=== PATIENT | female | born 1930 | race Caucasian/White ===

== ENCOUNTER 2016-10-08 08:57 | Emergency (ER) | payer MEDICARE, BC ==
--- NOTE | 2016-10-08 09:27 | ED ---
General Adult HPI - General Chief complaint: Upper Respiratory Infection Stated complaint: laryngitis Time Seen by Provider: 10/08/16 09:22 Source: patient, family, RN notes reviewed Mode of arrival: wheelchair Limitations: no limitations - History of Present Illness Initial comments: Patient is a pleasant 86-year-old female presenting to the emergency department complaining of cough. Onset of symptoms was a few days ago. Patient does have productive green sputum. Patient complains of chest congestion. No fever. Patient does have recent laryngitis with minimal sore throat that has been improving. No history of chronic lung problems. - Related Data Previous Rx's Medication Instructions Recorded Albuterol Inhaler [Ventolin Hfa 2 puff INHALATION Q4HR PRN #1 10/08/16 Inhaler] inhaler Azithromycin [Zithromax Z-pack] 250 mg PO DIRECTED #6 tab 10/08/16 Allergies Allergy/AdvReac Type Severity Reaction Status Date / Time Iodinated Contrast Media - Allergy Unknown Verified 10/08/16 09:03 Oral and Review of Systems ROS Statement: Those systems with pertinent positive or pertinent negative responses have been documented in the HPI. ROS Other: All systems not noted in ROS Statement are negative. Constitutional: Denies: fever, chills Eyes: Denies: eye pain ENT: Reports: throat pain, congestion. Denies: ear pain Respiratory: Reports: cough Cardiovascular: Denies: chest pain Endocrine: Denies: fatigue Gastrointestinal: Denies: abdominal pain Genitourinary: Denies: urgency Musculoskeletal: Denies: back pain Skin: Denies: rash Neurological: Denies: weakness Past Medical History Past Medical History: CVA/TIA, Diabetes Mellitus, GERD/Reflux, Hypertension, Renal Disease Additional Past Medical History / Comment(s): dialysis, leaky valve History of Any Multi-Drug Resistant Organisms: None Reported Past Surgical History: Coronary Bypass/CABG, Pacemaker Past Psychological History: No Psychological Hx Reported Smoking Status: Former smoker Past Alcohol Use History: None Reported Past Drug Use History: None Reported General Exam Limitations: no limitations General appearance: alert, in no apparent distress Head exam: Present: atraumatic Eye exam: Present: normal appearance, PERRL ENT exam: Present: normal oropharynx Neck exam: Present: normal inspection Respiratory exam: Present: normal lung sounds bilaterally Cardiovascular Exam: Present: regular rate, normal rhythm GI/Abdominal exam: Present: soft. Absent: tenderness Extremities exam: Present: normal inspection. Absent: pedal edema, calf tenderness Neurological exam: Present: alert Psychiatric exam: Present: normal affect, normal mood Skin exam: Present: normal color Course Vital Signs 10/08/16 10/08/16 09:00 09:30 Temperature 97.0 F L Pulse Rate 70 67 Respiratory 20 18 Rate Blood Pressure 153/62 133/60 O2 Sat by Pulse 90 L 100 Oximetry Medical Decision Making - Medical Decision Making Patient reevaluated and resting comfortably in bed. Patient and family updated on results. Patient is comfortable with discharge home with antibiotics orally. - Radiology Data Radiology results: image reviewed (Chest x-ray shows no infiltrate. Possible mild central venous congestion. Cardiomegaly.) Disposition Clinical Impression: Bronchitis Disposition: HOME SELF-CARE Condition: Stable Instructions: Acute Bronchitis (ED) Additional Instructions: Please follow-up with your doctor in the beginning of the week. Return for difficulty breathing, chest pain, leg swelling, fevers, worsening symptoms or other concerns. Prescriptions: Albuterol Inhaler [Ventolin Hfa Inhaler] 2 puff INHALATION Q4HR PRN #1 inhaler PRN Reason: Dyspnea Azithromycin [Zithromax Z-pack] 250 mg PO DIRECTED #6 tab Referrals: Juan Cheek DO [Primary Care Provider] - 1-2 days Time of Disposition: 10:03
[2016-10-08 09:31] VITALS: RESP 18
--- NOTE | 2016-10-08 09:53 | XR ---
EXAMINATION TYPE: XR chest 2V DATE OF EXAM: 10/08/2016 COMPARISON: 11/10/2010 TECHNIQUE: PA and lateral views submitted. HISTORY: Shortness of breath FINDINGS: The lungs are clear and there is no pneumothorax, pleural effusion, or focal pneumonia. Cardiac dev ice and dialysis catheter seen. Mild central interstitial prominence and cardiomegaly noted. Underlyi ng COPD suspected. Atherosclerotic change aorta and degenerative change of the spine. IMPRESSION: 1. Correlate for mild central venous congestion. 2. Cardiomegaly.
[2016-10-08 10:09] VITALS: BP 123/58; PULSE 70; TEMP 97.6
== END 2016-10-08 10:15 | disposition home or self-care (01) ==
LOC: EC 08:57 → SUPCPDRO 08:57 → EC 10:15
DX: J40 Bronchitis, not specified as acute or chronic (principal); Z87.891 Personal history of nicotine dependence; Z91.041 Radiographic dye allergy status
CPT/HCPCS: 71020; 99283

== ENCOUNTER 2016-12-03 14:03 | Inpatient (IN) | payer MEDICARE, BC ==
[~2016-12-03 14:03] MED LIST: HUMAN PROTHROMBIN COMPLX 500 UNIT/16 ML VIAL IV ONE
[2016-12-03] MEDS ORDERED: SODIUM CHLORIDE 0.9% 1,000 ML IV STA (14:30)
--- NOTE | 2016-12-03 14:31 | ED ---
General Adult HPI - General Chief complaint: Recheck/Abnormal Lab/Rx Stated complaint: Dr Sent Time Seen by Provider: 12/03/16 14:28 Source: patient, RN notes reviewed, old records reviewed Mode of arrival: wheelchair Limitations: no limitations - History of Present Illness Initial comments: This is a 86-year-old female here for evaluation. Patient's reported ER for evaluation of low hemoglobin weakness. Patient sent in by dialysis as outpatient lab tests revealed low hemoglobin. Patient denies vomiting blood, patient denies blood in stool - Related Data Allergies Allergy/AdvReac Type Severity Reaction Status Date / Time Iodinated Contrast- Oral and AdvReac Severe Compromised Verified 12/03/16 14:53 IV Dye Kidney [Iodinated Contrast Media - Function/Dialysis Oral and] Review of Systems ROS Statement: Those systems with pertinent positive or pertinent negative responses have been documented in the HPI. ROS Other: All systems not noted in ROS Statement are negative. Past Medical History Past Medical History: Atrial Fibrillation, CVA/TIA, Diabetes Mellitus, GERD/ Reflux, Hypertension, Renal Disease Additional Past Medical History / Comment(s): dialysis, leaky mitral valve, CHF History of Any Multi-Drug Resistant Organisms: None Reported Past Surgical History: Coronary Bypass/CABG, Pacemaker Past Psychological History: No Psychological Hx Reported Smoking Status: Former smoker Past Alcohol Use History: None Reported Past Drug Use History: None Reported General Exam Limitations: no limitations General appearance: alert, in no apparent distress Head exam: Present: atraumatic, normocephalic, normal inspection Eye exam: Present: normal appearance, PERRL, EOMI. Absent: scleral icterus, conjunctival injection, periorbital swelling ENT exam: Present: normal exam, mucous membranes moist Neck exam: Present: normal inspection. Absent: tenderness, meningismus, lymphadenopathy Respiratory exam: Present: normal lung sounds bilaterally. Absent: respiratory distress, wheezes, rales, rhonchi, stridor Cardiovascular Exam: Present: regular rate, normal rhythm, normal heart sounds. Absent: systolic murmur, diastolic murmur, rubs, gallop, clicks GI/Abdominal exam: Present: soft, normal bowel sounds. Absent: distended, tenderness, guarding, rebound, rigid Extremities exam: Present: normal inspection, full ROM, normal capillary refill. Absent: tenderness, pedal edema, joint swelling, calf tenderness Back exam: Present: normal inspection Neurological exam: Present: alert, oriented X3, CN II-XII intact Psychiatric exam: Present: normal affect, normal mood Skin exam: Present: warm, dry, intact, normal color. Absent: rash Course Vital Signs 12/03/16 14:19 Temperature 97.7 F Pulse Rate 72 Respiratory 16 Rate Blood Pressure 92/54 O2 Sat by Pulse 96 Oximetry - Reevaluation(s) Reevaluation #1: 12/03/16 14:57 Patient does feel weak does feel lightheaded and dizzy Reevaluation #2: 12/03/16 14:58 He did see patient and speak with transferring physician regarding possible and probable anemia EKG Findings - EKG Comments: EKG Findings:: EKG shows paced rhythm rate of 70, QRS to 12, QTC 613 Medical Decision Making - Medical Decision Making 86. ER for evaluation regarding GI bleed. Patient does have history of GI bleed, is on Alquist. Ahlquist, patient with severe anemia, patient will be transfused. Patient be admitted for monitoring of urine MX status, GI evaluation and nephrology evaluation Disposition Clinical Impression: Anemia, Coagulopathy, GI bleed Disposition: ADMITTED IP TO THIS [facility] Condition: Serious Referrals: Neo Murphy DO [Primary Care Provider] - 1-2 days
[2016-12-03 15:13] LABS: Basophils % (A) 0 %; CH 35.7; CHCM 32.8; Eosinophils # (A) 0.1 k/uL (0-0.7); Eosinophils % (A) 1 %; HCT 23.9 % (34.0-46.0); HDW 2.89; HGB 7.7 gm/dL (11.4-16.0); Luc # (Auto) 0.09; Luc % (Auto) 2; Lymphocytes # (A) 0.8 k/uL (1.0-4.8); Lymphocytes % (A) 19 %; MCH 35.4 pg (25.0-35.0); MCHC 32.2 g/dL (31.0-37.0); MCV 109.9 fL (80.0-100.0); Macrocytosis Marked; Mean Platelet Volume 8.8; Monocytes # (A) 0.2 k/uL (0-1.0); Monocytes % (A) 5 %; Neutrophils # (A) 3.2 k/uL (1.3-7.7); Neutrophils % (A) 73 %; RBC 2.17 m/uL (3.80-5.40); RDW 15.7 % (11.5-15.5); WBC 4.4 k/uL (3.8-10.6); WBC (Perox) 4.28
[2016-12-03 15:24] LABS: INR 1.2 (<1.2); Magnesium 1.7 mg/dL (1.6-2.3); Potassium 3.6 mmol/L (3.5-5.1); Prothrombin Time 11.7 sec (9.0-12.0); Total Bilirubin 0.4 mg/dL (0.2-1.3); Total Protein 5.8 g/dL (6.3-8.2)
[2016-12-03] MEDS ORDERED: HUMAN PROTHROMBIN COMPLX IV ONE (15:30)
[2016-12-03 15:39] LABS: Creatine Kinase MB 0.6 ng/mL (0.0-2.4); Troponin I 0.019 ng/mL (0.000-0.034)
[2016-12-03 16:07] VITALS: BMI 29.0
[2016-12-03] MEDS ORDERED: SENNOSIDES-DOCUSATE SODIUM 1 EACH TAB PO PRN (16:42)
[2016-12-03] MEDS ORDERED: HYDROmorphone 1 MG/ML 1 ML SYRINGE IVP PRN (16:43)
[2016-12-03] MEDS ORDERED: ALPRAZolam 0.25 MG TAB PO PRN (16:43)
[2016-12-03] MEDS ORDERED: PANTOPRAZOLE 40 MG TABLET PO SCH (16:45)
[2016-12-03] MEDS: AMIODARONE 200 MG TAB PO SCH ×2 (17:22→21:10)
[2016-12-03] MEDS: CALCIUM ACETATE 667 MG CAP PO SCH (17:22)
[2016-12-03 17:56] LABS: Glucose,Whole Blood 284 mg/dL (75-99)
[2016-12-03] MEDS: INSULIN LISPRO (humaLOG) 300 UNIT/3 ML VIAL SQ SCH ×2 (18:20→21:10)
[2016-12-03] MEDS: HYDROcodone/APAP 5-325MG 1 EACH TAB PO PRN (19:53)
[2016-12-03 20:25] LABS: Glucose,Whole Blood 218 mg/dL (75-99)
[2016-12-03] MEDS: TEMAZEPAM 15 MG CAP PO PRN (21:09)
[2016-12-03] MEDS: SACUBITRIL/VALSARTAN 24 MG-26 MG TABLET PO SCH (21:09)
[2016-12-03] MEDS: ATORVASTATIN 80 MG TAB PO SCH (21:10)
[2016-12-03] MEDS: FOLIC ACID-VIT B COMPLEX-VIT C 1 CAP PO SCH (21:10)
[2016-12-04 07:42] LABS: Glucose,Whole Blood 204 mg/dL (75-99)
[2016-12-04 07:46] LABS: Anisocytosis Slight; Basophils % (A) 1 %; CH 35.7; CHCM 33.4; Eosinophils # (A) 0.1 k/uL (0-0.7); Eosinophils % (A) 3 %; HCT 22.3 % (34.0-46.0); HDW 3.06; HGB 7.4 gm/dL (11.4-16.0); Luc # (Auto) 0.12; Luc % (Auto) 3; Lymphocytes % (A) 24 %; MCHC 33.4 g/dL (31.0-37.0); MCV 107.7 fL (80.0-100.0); Macrocytosis Marked; Mean Platelet Volume 8.3; Monocytes # (A) 0.3 k/uL (0-1.0); Monocytes % (A) 8 %; Neutrophils # (A) 2.6 k/uL (1.3-7.7); Neutrophils % (A) 62 %; RBC 2.07 m/uL (3.80-5.40); RDW 16.1 % (11.5-15.5); WBC 4.2 k/uL (3.8-10.6); WBC (Perox) 4.17
[2016-12-04] MEDS: INSULIN LISPRO (humaLOG) 300 UNIT/3 ML VIAL SQ SCH ×4 (08:01→22:16)
[2016-12-04] MEDS: INSULIN GLARGINE 100 UNIT/ML 10 ML VIAL SQ SCH (08:02)
[2016-12-04] MEDS: FUROSEMIDE 80 MG TAB PO SCH ×2 (08:02→14:41)
[2016-12-04] MEDS: AMIODARONE 200 MG TAB PO SCH ×3 (08:02→22:14)
[2016-12-04] MEDS: CALCIUM ACETATE 667 MG CAP PO SCH ×3 (08:02→18:40)
[2016-12-04] MEDS: PANTOPRAZOLE 40 MG TABLET PO SCH (08:02)
[2016-12-04] MEDS: SACUBITRIL/VALSARTAN 24 MG-26 MG TABLET PO SCH ×2 (08:03→22:14)
[2016-12-04] MEDS: ISOSORBIDE MONONITRATE ER 30 MG TAB.ER.24H PO SCH (08:03)
[2016-12-04] MEDS: METOPROLOL SUCCINATE (ER) 50 MG TAB.ER.24H PO SCH (08:03)
[2016-12-04 08:05] LABS: Calcium 8.9 mg/dL (8.4-10.2); Potassium 4.8 mmol/L (3.5-5.1)
[2016-12-04 08:22] LABS: Polychromasia Present
[2016-12-04] MEDS ORDERED: ENOXAPARIN 40 MG/0.4 ML SYRINGE SQ SCH (09:00)
[2016-12-04] MEDS ORDERED: DARBEPOETIN ALFA 40 MCG/0.4 ML SYRINGE SQ SCH (11:00)
--- NOTE | 2016-12-04 11:30 | P.NPCON ---
History of Present Illness - Reason for Consult end stage renal disease - History of Present Illness Reason for consultation: End-stage renal disease History of present illness: Patient is a 86-year-old female seen in renal consultation for end-stage renal disease. She is maintained on hemodialysis on a Monday schedule via a permacath. Patient states she's been feeling quite weak and tired for the last couple of weeks. She's also noticed some dark bowel movements intermittently. Her hemoglobin was less than 7 when checked yesterday and she was subsequently sent to the hospital for blood transmission. Her hemoglobin on admission was 7.7-7.4 this morning. She has not received any blood transfusions yet. She denies any hematemesis. She denies any bloody bowel movements. Denies chest pain. Does admit to intermittent dyspnea. Oral intake is good. She did complete her hemodialysis yesterday. Hemodynamically she stable. No other complaints at this time. Vital signs are stable. General: The patient appeared well nourished and normally developed. HEENT: Head exam is unremarkable. Neck is without jugular venous distension. LUNGS: Lungs are clear to auscultation and percussion. Breath sounds decreased. HEART: Rate and Rhythm are regular. First and second heart sounds normal. No murmurs, rubs or gallops. ABDOMEN: Abdominal exam reveals normal bowel sounds. Non-tender and non- distended. No evidence of peritonitis. EXTREMITITES: No clubbing, cyanosis, or edema. Past Medical History Past Medical History: Atrial Fibrillation, Heart Failure, CVA/TIA, Diabetes Mellitus, GERD/Reflux, Hypertension, Renal Disease Additional Past Medical History / Comment(s): dialysis, leaky mitral valve, CHF History of Any Multi-Drug Resistant Organisms: None Reported Past Surgical History: Coronary Bypass/CABG, Pacemaker Additional Past Surgical History / Comment(s): hx GI Bleed, several colonoscopies Past Anesthesia/Blood Transfusion Reactions: No Reported Reaction Type of Cardiac Device: Permanent Pacemaker Device Placement Date:: 1999 Past Psychological History: No Psychological Hx Reported Smoking Status: Former smoker Past Alcohol Use History: None Reported Past Drug Use History: None Reported - Past Family History Father Family Medical History: Coronary Artery Disease (CAD) Brother(s) Family Medical History: Coronary Artery Disease (CAD) Sister(s) Family Medical History: CVA/TIA Medications and Allergies Home Medications Medication Instructions Recorded Confirmed Type Amiodarone [Cordarone] 200 mg PO TID 12/03/16 12/03/16 History Apixaban [Eliquis] 5 mg PO BID 12/03/16 12/03/16 History Aspirin EC [Ecotrin Low Dose] 81 mg PO QAM 12/03/16 12/03/16 History Atorvastatin [Lipitor] 80 mg PO HS 12/03/16 12/03/16 History Calcium Acetate [Phoslo] 667 mg PO TID@0800,1400,1800 12/03/16 12/03/16 History Folic Acid-Vit B Complex-Vit C 1 mg PO HS 12/03/16 12/03/16 History [Nephrocaps] Furosemide [Lasix] 80 mg PO BID@0800,1400 12/03/16 12/03/16 History INSULIN LISPRO (humaLOG) [HumaLOG] See Protocol SQ BID 12/03/16 12/03/16 History Insulin Glargine [Lantus] 20 unit SQ QAM 12/03/16 12/03/16 History Isosorbide Mononitrate ER [Imdur] 30 mg PO QAM 12/03/16 12/03/16 History Metoprolol Succinate (ER) [Toprol 50 mg PO QAM 12/03/16 12/03/16 History Xl] Omeprazole 40 mg PO QAM 12/03/16 12/03/16 History Sacubitril/Valsartan [Entresto 24 1 tab PO BID 12/03/16 12/03/16 History mg-26 mg Tablet] Sennosides-Docusate Sodium 1 tab PO BID PRN 12/03/16 12/03/16 History [Senokot-S] fentaNYL 50MCG/HR PATCH [Duragesic 1 patch TRANSDERM Q72H 12/03/16 12/03/16 History 50MCG/HR] Allergies Allergy/AdvReac Type Severity Reaction Status Date / Time Iodinated Contrast- Oral and AdvReac Severe Compromised Verified 12/03/16 14:53 IV Dye Kidney [Iodinated Contrast Media - Function/Dialysis Oral and] Physical Exam Vitals: Vital Signs Temp Pulse Pulse Pulse Resp BP BP 12/04/16 07:00 97.6 F 70 16 132/59 12/03/16 22:56 98 F 69 18 122/56 12/03/16 17:27 97.7 F 70 17 130/51 12/03/16 15:17 69 18 137/72 12/03/16 14:19 97.7 F 72 16 92/54 Pulse Ox 12/04/16 07:00 94 L 12/03/16 22:56 100 12/03/16 17:27 12/03/16 15:17 95 12/03/16 14:19 96 Intake and Output 12/03/16 12/04/16 12/04/16 22:59 06:59 14:59 Intake Total 400 Balance 400 Intake: IV 400 Sodium Chloride 0.9% 1, 400 000 ml @ 50 mls/hr IV . Q20H STA Rx#:[id number] Other: # Voids 1 2 Weight 69.853 kg 69.853 kg Results - Lab Results Most recent lab results Calcium 8.9 mg/dL (8.4-10.2) 12/04/16 07:05 Magnesium 1.7 mg/dL (1.6-2.3) 12/03/16 14:57 12/04/16 07:05 12/04/16 07:05 Assessment and Plan Plan: Assessment: #1. End-stage renal disease maintained on hemodialysis on a Monday schedule via permacath. Patient does have a left upper extremity AV fistula which the patient does not want to use at she had developed cellulitis in the past. #2. Symptomatic anemia. Hemoglobin was 6.7 when checked yesterday but was 7.7 on admission. It is 7.4 this morning. #3. Chronic kidney disease mineral bone disease. #4. Recent hospitalization at [facility] with CHF exacerbation and pleural effusions. Plan: Hemodialysis on Monday. I will give her 1 dose of IV DDAVP. Check hemoglobin at 5 PM today. If further drops, will transfuse. Await GI recommendations. Maintain PhosLo with meals. Start Aranesp. Thank you for the consultation. I will continue to follow the patient with you during her hospital stay.
[2016-12-04] MEDS ORDERED: SODIUM CHLORIDE 0.9% IVPB ONE (11:45)
[2016-12-04] MEDS ORDERED: DESMOPRESSIN IVPB ONE (11:45)
[2016-12-04 12:25] LABS: Glucose,Whole Blood 211 mg/dL (75-99)
--- NOTE | 2016-12-04 14:10 | P.CONS ---
History of Present Illness - Reason for Consult Consult date: 12/04/16 - History of Present Illness Patient is a 86-year-old female with end-stage renal disease maintained on hemodialysis on a Monday, and Monday schedule via a permacath. Patient came to the ER with complaints of feeling weak and tired for the last two weeks or so. She noticed dark bowel movements intermittently. Her hemoglobin was less than 7 when checked the day before admission and she was sent to the hospital for blood transmission. Her hemoglobin on admission was 7.7, 7.4 this morning. She has not received any blood transfusions yet. She denies any hematemesis. She denies any bloody bowel movements. Denies chest pain. Does admit to intermittent dyspnea. Oral intake is good. She did complete her Monday. No other complaints at this time. Had colonoscopy on more than one occasion, last around 2 years ago. No recent EGD. Review of Systems 12 point ROS negative except as PI. Past Medical History Past Medical History: Atrial Fibrillation, Heart Failure, CVA/TIA, Diabetes Mellitus, GERD/Reflux, Hypertension, Renal Disease Additional Past Medical History / Comment(s): dialysis, leaky mitral valve, CHF History of Any Multi-Drug Resistant Organisms: None Reported Past Surgical History: Coronary Bypass/CABG, Pacemaker Additional Past Surgical History / Comment(s): hx GI Bleed, several colonoscopies Past Anesthesia/Blood Transfusion Reactions: No Reported Reaction Type of Cardiac Device: Permanent Pacemaker Device Placement Date:: 1999 Past Psychological History: No Psychological Hx Reported Smoking Status: Former smoker Past Alcohol Use History: None Reported Past Drug Use History: None Reported - Past Family History Father Family Medical History: Coronary Artery Disease (CAD) Brother(s) Family Medical History: Coronary Artery Disease (CAD) Sister(s) Family Medical History: CVA/TIA Medications and Allergies Home Medications Medication Instructions Recorded Confirmed Type Amiodarone [Cordarone] 200 mg PO TID 12/03/16 12/03/16 History Apixaban [Eliquis] 5 mg PO BID 12/03/16 12/03/16 History Aspirin EC [Ecotrin Low Dose] 81 mg PO QAM 12/03/16 12/03/16 History Atorvastatin [Lipitor] 80 mg PO HS 12/03/16 12/03/16 History Calcium Acetate [Phoslo] 667 mg PO TID@0800,1400,1800 12/03/16 12/03/16 History Folic Acid-Vit B Complex-Vit C 1 mg PO HS 12/03/16 12/03/16 History [Nephrocaps] Furosemide [Lasix] 80 mg PO BID@0800,1400 12/03/16 12/03/16 History INSULIN LISPRO (humaLOG) [HumaLOG] See Protocol SQ BID 12/03/16 12/03/16 History Insulin Glargine [Lantus] 20 unit SQ QAM 12/03/16 12/03/16 History Isosorbide Mononitrate ER [Imdur] 30 mg PO QAM 12/03/16 12/03/16 History Metoprolol Succinate (ER) [Toprol 50 mg PO QAM 12/03/16 12/03/16 History Xl] Omeprazole 40 mg PO QAM 12/03/16 12/03/16 History Sacubitril/Valsartan [Entresto 24 1 tab PO BID 12/03/16 12/03/16 History mg-26 mg Tablet] Sennosides-Docusate Sodium 1 tab PO BID PRN 12/03/16 12/03/16 History [Senokot-S] fentaNYL 50MCG/HR PATCH [Duragesic 1 patch TRANSDERM Q72H 12/03/16 12/03/16 History 50MCG/HR] Allergies Allergy/AdvReac Type Severity Reaction Status Date / Time Iodinated Contrast- Oral and AdvReac Severe Compromised Verified 12/03/16 14:53 IV Dye Kidney [Iodinated Contrast Media - Function/Dialysis Oral and] Physical Exam Vitals: Vital Signs Temp Pulse Pulse Pulse Resp BP BP 12/04/16 07:00 97.6 F 70 16 132/59 12/03/16 22:56 98 F 69 18 122/56 12/03/16 17:27 97.7 F 70 17 130/51 12/03/16 15:17 69 18 137/72 12/03/16 14:19 97.7 F 72 16 92/54 Pulse Ox 12/04/16 07:00 94 L 12/03/16 22:56 100 12/03/16 17:27 12/03/16 15:17 95 12/03/16 14:19 96 Intake and Output 12/03/16 12/04/16 12/04/16 22:59 06:59 14:59 Intake Total 400 370 Balance 400 370 Intake: IV 400 320 Sodium Chloride 0.9% 1, 400 320 000 ml @ 50 mls/hr IV . Q20H STA Rx#:[id number] Intake, IV Titration 50 Amount Desmopressin Inj 21 mcg 50 In Sodium Chloride 0.9% 50 ml @ 200 mls/hr IVPB ONCE ONE Rx#:[id number] Other: # Voids 1 2 Weight 69.853 kg 69.853 kg General appearance: The patient is alert, oriented, in no acute distress. HET: Head is normocephalic and atraumatic. Pupils are equal and reactive. Oropharynx is clear without lesions. Neck: Supple without lymphadenopathy. Trachea midline. Heart: S1 S2. Regular rate and rhythm. Lungs: No crackles or wheezes are heard. Abdomen: Soft, mild epigastric tenderness, nondistended with bowel sounds. No appreciable ascites. No peritoneal signs. No palpable organomegaly or masses. Extremities: Normal skin color and turgor. No cyanosis, rash, ulceration, clubbing, or edema. Radial and pedal pulses are 2/4 bilaterally. Neurological: No focal deficits. Strength and sensation are grossly intact. Results CBC & Chem 7: 12/04/16 07:05 12/04/16 07:05 Labs: Abnormal Lab Results - Last 24 Hours (Table) 12/03/16 12/03/16 12/03/16 Range/Units 14:57 14:57 14:57 RBC 2.17 L (3.80-5.40) m/uL Hgb 7.7 L (11.4-16.0) gm/dL Hct 23.9 L (34.0-46.0) % MCV 109.9 H (80.0-100.0) fL MCH 35.4 H (25.0-35.0) pg RDW 15.7 H (11.5-15.5) % Lymphocytes # 0.8 L (1.0-4.8) k/uL INR (<1.2) Chloride 97 L (98-107) mmol/L Carbon Dioxide 31 H (22-30) mmol/L BUN 21 H (7-17) mg/dL Creatinine 2.12 H (0.52-1.04) mg/dL Glucose 225 H (74-99) mg/dL POC Glucose (mg/dL) (75-99) mg/dL Total Creatine Kinase 21 L (30-135) U/L Total Protein 5.8 L (6.3-8.2) g/dL Stool Occult Blood (Negative) Crossmatch 12/03/16 12/03/16 12/03/16 Range/Units 14:57 14:57 14:57 RBC (3.80-5.40) m/uL Hgb (11.4-16.0) gm/dL Hct (34.0-46.0) % MCV (80.0-100.0) fL MCH (25.0-35.0) pg RDW (11.5-15.5) % Lymphocytes # (1.0-4.8) k/uL INR 1.2 H (<1.2) Chloride (98-107) mmol/L Carbon Dioxide (22-30) mmol/L BUN (7-17) mg/dL Creatinine (0.52-1.04) mg/dL Glucose (74-99) mg/dL POC Glucose (mg/dL) (75-99) mg/dL Total Creatine Kinase (30-135) U/L Total Protein (6.3-8.2) g/dL Stool Occult Blood Positive H (Negative) Crossmatch See Detail 12/03/16 12/03/16 12/04/16 Range/Units 17:47 20:21 07:05 RBC 2.07 L (3.80-5.40) m/uL Hgb 7.4 L (11.4-16.0) gm/dL Hct 22.3 L (34.0-46.0) % MCV 107.7 H (80.0-100.0) fL MCH 36.0 H (25.0-35.0) pg RDW 16.1 H (11.5-15.5) % Lymphocytes # (1.0-4.8) k/uL INR (<1.2) Chloride (98-107) mmol/L Carbon Dioxide (22-30) mmol/L BUN (7-17) mg/dL Creatinine (0.52-1.04) mg/dL Glucose (74-99) mg/dL POC Glucose (mg/dL) 284 H 218 H (75-99) mg/dL Total Creatine Kinase (30-135) U/L Total Protein (6.3-8.2) g/dL Stool Occult Blood (Negative) Crossmatch 12/04/16 12/04/16 12/04/16 Range/Units 07:05 07:26 12:18 RBC (3.80-5.40) m/uL Hgb (11.4-16.0) gm/dL Hct (34.0-46.0) % MCV (80.0-100.0) fL MCH (25.0-35.0) pg RDW (11.5-15.5) % Lymphocytes # (1.0-4.8) k/uL INR (<1.2) Chloride (98-107) mmol/L Carbon Dioxide (22-30) mmol/L BUN 35 H (7-17) mg/dL Creatinine 3.34 H (0.52-1.04) mg/dL Glucose 188 H (74-99) mg/dL POC Glucose (mg/dL) 204 H 211 H (75-99) mg/dL Total Creatine Kinase (30-135) U/L Total Protein (6.3-8.2) g/dL Stool Occult Blood (Negative) Crossmatch Assessment and Plan Plan: Anemia and dark stools likely related to UGI bleeding. Agree with your current management. I will plan EGD in AM.
--- NOTE | 2016-12-04 14:23 | PN ---
DATE OF SERVICE: 12/03/2016 CHIEF COMPLAINT: GI bleed and anemia. HISTORY OF PRESENT ILLNESS: This 86-year-old woman with the past medical history of chronic renal failure on hemodialysis, history of atrial fibrillation , CHF, history of CVA, TIA, diabetes mellitus, hypertension and GERD, being followed by primary physician in the [place] area, was receiving hemodialysis. Blood count was found to be low at 6.6 and patient sent to [facility] ER for further evaluation and treatment. Rectal exam showed black, maroon colored stool per and patient was admitted for further evaluation and treatment. Hemoglobin is 7.7 at this time. There is no history of fever or rigors. No history of headache, loss of consciousness or seizures. The patient' s last colonoscopy was about 10 years ago with some polyps, the details are not available. PAST MEDICAL HISTORY: Chronic kidney failure, atrial fibrillation, history of CVA, TIA, history of GERD, hypertension. MEDICATIONS PRIOR TO ADMISSION: Include home medications: 1. Fentanyl patch 50 mcg q72 hours. 2. Senokot S one tablet b.i.d.p.r.n. 3. Entresto one p.o. b.i.d. 4. Omeprazole 40 mg q a.m. 5. Toprol XL 50 mg q a.m. 6. Imdur 30 mg. 7. Lantus 10 units 8. Humalog to scale. 9. Lasix 80 mg p.o. b.i.d. 10. Nephrocaps 1 mg q.h.s. 11. PhosLo 667 p.o. one t.i.d. 12. Lipitor 80 mg q h.s. 13. Ecotrin 81 mg q.d. 14. Eliquis 5 mg p.o. b.i.d. 15. Cordarone 200 mg p.o. t.i.d. ALLERGIES: IODINATED CONTRAST DYES. FAMILY HISTORY: History of coronary artery disease in the family. SOCIAL HISTORY: Previous history of smoking, no history of current smoking or alcohol intake. REVIEW OF SYSTEMS: ENT: No diminished hearing or vision. CARDIOVASCULAR: As mentioned earlier. RESPIRATORY: As mentioned earlier. GI: As mentioned earlier. : No dysuria. NERVOUS SYSTEM: No numbness or weakness. IMMUNOLOGY/ALLERGY: No asthma, hayfever. MUSCULOSKELETAL: As mentioned earlier. HEMATOLOGY: No history of anemia. ENDOCRINE: No history of diabetes or hypothyroidism. CONSTITUTIONAL: As mentioned earlier. PSYCHIATRIC: As mentioned earlier. PHYSICAL EXAMINATION: Alert and oriented x3. Pulse 72, blood pressure n, respirations 16, temperature 97.7, pulse ox 96% on room air. HEENT: Conjunctivae pale. Oral mucosa moist. NECK: No jugular venous distention. No thyroid enlargement. CARDIOVASCULAR: S1/.S2. Ejection systolic murmur parasternal area. No S3, no S4. RESPIRATIONS: Diminished breath sounds at the bases. No rhonchi, no crackles. ABDOMEN: Soft. Mild discomfort in the lower abdomen. No mass palpable. LEGS: Minimal edema. NERVOUS SYSTEM: Higher function as mentioned. Moves all four limbs. No focal weakness. LYMPHATICS. No lymph node palpable in neck or axillae. SKIN: No rash. LABS: WBC 4.2, hemoglobin 7.7, MCV 109. Creatinine 2.1. ASSESSMENT: 1. Anemia, acute blood loss anemia with possible lower gastrointestinal bleeding, rule out diverticulosis. 2. 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 3. Macrocytosis. 4. Atrial fibrillation. 5. Cerebrovascular accident, transient ischemic attack. 6. Diabetes mellitus type 2. 7. Hypertension. RECOMMENDATIONS AND DISCUSSION: This 86-year-old woman presented with multiple complex medial issues. Will monitor the patient closely, continue the current medication, continue symptomatic treatment. Otherwise, gastroenterology evaluation, repeat hemoglobin, transfuse on a periodic basis, hold antiplatelets and anticoagulations. Guarded prognosis because of multiple complex medical issues. Further recommendations to follow. FAREEDD
[2016-12-04] MEDS: HYDROcodone/APAP 5-325MG 1 EACH TAB PO PRN (14:39)
[2016-12-04 17:00] LABS: Glucose,Whole Blood 217 mg/dL (75-99)
[2016-12-04 17:30] LABS: Anisocytosis Slight; CH 34.9; HCT 21.7 % (34.0-46.0); HDW 2.99; HGB 7.3 gm/dL (11.4-16.0); Hypochromasia Slight; MCH 36.9 pg (25.0-35.0); MCHC 33.5 g/dL (31.0-37.0); MCV 110.1 fL (80.0-100.0); Macrocytosis Marked; Mean Platelet Volume 8.8; RBC 1.97 m/uL (3.80-5.40); RDW 16.1 % (11.5-15.5); WBC 6.2 k/uL (3.8-10.6)
[2016-12-04 20:49] LABS: Glucose,Whole Blood 207 mg/dL (75-99)
[2016-12-04] MEDS: TEMAZEPAM 15 MG CAP PO PRN (22:14)
[2016-12-04] MEDS: ATORVASTATIN 80 MG TAB PO SCH (22:14)
[2016-12-04] MEDS: FOLIC ACID-VIT B COMPLEX-VIT C 1 CAP PO SCH (22:14)
[2016-12-05 07:33] LABS: Glucose,Whole Blood 144 mg/dL (75-99)
[2016-12-05 07:52] LABS: Calcium 8.8 mg/dL (8.4-10.2); Potassium 4.6 mmol/L (3.5-5.1)
[2016-12-05] MEDS: INSULIN LISPRO (humaLOG) 300 UNIT/3 ML VIAL SQ SCH ×4 (08:12→21:18)
[2016-12-05] MEDS: FUROSEMIDE 80 MG TAB PO SCH ×2 (08:12→18:03)
[2016-12-05] MEDS: CALCIUM ACETATE 667 MG CAP PO SCH ×3 (08:12→21:17)
[2016-12-05] MEDS: AMIODARONE 200 MG TAB PO SCH ×3 (08:12→21:17)
[2016-12-05] MEDS: PANTOPRAZOLE 40 MG TABLET PO SCH (08:12)
[2016-12-05] MEDS: INSULIN GLARGINE 100 UNIT/ML 10 ML VIAL SQ SCH (08:13)
[2016-12-05 08:38] LABS: Anisocytosis Slight; Basophils % (A) 0 %; Eosinophils # (A) 0.2 k/uL (0-0.7); Eosinophils % (A) 4 %; HCT 23.7 % (34.0-46.0); HDW 3.19; HGB 7.7 gm/dL (11.4-16.0); Hypochromasia Slight; Luc # (Auto) 0.13; Luc % (Auto) 3; Lymphocytes # (A) 0.9 k/uL (1.0-4.8); Lymphocytes % (A) 24 %; MCHC 32.6 g/dL (31.0-37.0); MCV 107.4 fL (80.0-100.0); Macrocytosis Marked; Mean Platelet Volume 7.3; Monocytes # (A) 0.3 k/uL (0-1.0); Monocytes % (A) 7 %; Neutrophils # (A) 2.4 k/uL (1.3-7.7); Neutrophils % (A) 62 %; RBC 2.21 m/uL (3.80-5.40); WBC 3.9 k/uL (3.8-10.6); WBC (Perox) 3.89
[2016-12-05] MEDS ORDERED: DESMOPRESSIN INJ 4 MCG/ML AMP IV SCH (09:00)
--- NOTE | 2016-12-05 10:33 | P.PN ---
Subjective Patient is seen in follow-up for end-stage renal disease. She is maintained on hemodialysis on a Monday schedule via a permacath. Patient presented with symptomatic anemia. She did receive 1 unit of blood transfusion and hemoglobin is 7.7 this morning. She continues to have dark stools. Scheduled to undergo EGD this afternoon. Vital signs are stable. General: The patient appeared well nourished and normally developed. HEENT: Head exam is unremarkable. Neck is without jugular venous distension. LUNGS: Lungs are clear to auscultation and percussion. Breath sounds decreased. HEART: Rate and Rhythm are regular. First and second heart sounds normal. No murmurs, rubs or gallops. ABDOMEN: Abdominal exam reveals normal bowel sounds. Non-tender and non- distended. No evidence of peritonitis. EXTREMITITES: No clubbing, cyanosis, or edema. Objective - Vital Signs Vital signs: Vital Signs Temp 98.1 F 12/05/16 07:00 Pulse 70 12/05/16 07:00 Resp 18 12/05/16 07:00 BP 138/66 12/05/16 07:00 Pulse Ox 97 12/05/16 07:00 Intake & Output 12/04/16 12/05/16 12/05/16 18:59 06:59 18:59 Intake Total 370 550 Balance 370 550 Intake: IV 320 Sodium Chloride 0.9% 1, 320 000 ml @ 50 mls/hr IV . Q20H STA Rx#:[id number] Intake, IV Titration 50 Amount Desmopressin Inj 21 mcg 50 In Sodium Chloride 0.9% 50 ml @ 200 mls/hr IVPB ONCE ONE Rx#:[id number] Oral 240 Blood Product 310 Rc Pheresis 2 As3 Unit 310 [id number] Other: # Voids 1 - Labs CBC & Chem 7: 12/05/16 07:07 12/05/16 07:07 Labs: Abnormal Lab Results - Last 24 Hours (Table) 12/03/16 12/04/16 12/04/16 Range/Units 14:57 12:18 16:55 RBC 1.97 L (3.80-5.40) m/uL Hgb 7.3 L (11.4-16.0) gm/dL Hct 21.7 L (34.0-46.0) % MCV 110.1 H (80.0-100.0) fL MCH 36.9 H (25.0-35.0) pg RDW 16.1 H (11.5-15.5) % Plt Count (150-450) k/uL BUN (7-17) mg/dL Creatinine (0.52-1.04) mg/dL Glucose (74-99) mg/dL POC Glucose (mg/dL) 211 H (75-99) mg/dL Crossmatch See Detail 12/04/16 12/04/16 12/05/16 Range/Units 16:58 20:47 07:07 RBC 2.21 L (3.80-5.40) m/uL Hgb 7.7 L (11.4-16.0) gm/dL Hct 23.7 L (34.0-46.0) % MCV 107.4 H (80.0-100.0) fL MCH (25.0-35.0) pg RDW 19.0 H (11.5-15.5) % Plt Count 145 L (150-450) k/uL BUN (7-17) mg/dL Creatinine (0.52-1.04) mg/dL Glucose (74-99) mg/dL POC Glucose (mg/dL) 217 H 207 H (75-99) mg/dL Crossmatch 12/05/16 12/05/16 Range/Units 07:07 07:29 RBC (3.80-5.40) m/uL Hgb (11.4-16.0) gm/dL Hct (34.0-46.0) % MCV (80.0-100.0) fL MCH (25.0-35.0) pg RDW (11.5-15.5) % Plt Count (150-450) k/uL BUN 53 H (7-17) mg/dL Creatinine 4.61 H (0.52-1.04) mg/dL Glucose 125 H (74-99) mg/dL POC Glucose (mg/dL) 144 H (75-99) mg/dL Crossmatch Assessment and Plan Plan: Assessment: #1. End-stage renal disease maintained on hemodialysis on a Monday schedule via permacath. Patient does have a left upper extremity AV fistula which the patient does not want to use at she had developed cellulitis in the past. #2. Symptomatic anemia. Hemoglobin was 6.7 when checked yesterday but was 7.7 on admission. Status post 1 unit blood transfusion on December 04. Also received 1 dose of IV DDAVP on December 04. #3. Chronic kidney disease mineral bone disease. #4. Recent hospitalization at [facility] with CHF exacerbation and pleural effusions. Plan: Hemodialysis on Monday. Maintain PhosLo with meals. Continue Aranesp. EGD today.
[2016-12-05 11:03] LABS: Manual Review Performed
[2016-12-05 11:04] LABS: Glucose,Whole Blood 173 mg/dL (75-99)
--- NOTE | 2016-12-05 12:25 | PN ---
DATE OF SERVICE: 12/04/2016 This 86-year-old woman who was admitted with anemia, also had chronic kidney disease. Gastroenterology is seeing the patient. The patient did have lower abdominal discomfort and hemoglobin 7.[address] Phillips is planning endoscope, EGD in the morning. PAST MEDICAL HISTORY: Reviewed. REVIEW OF SYSTEMS: CARDIOVASCULAR: No angina. RESPIRATORY: As mentioned earlier. GI: As mentioned earlier. : No dysuria. NERVOUS SYSTEM: No numbness or weakness. CURRENT MEDICATIONS: Reviewed and include: 1. [place] 5 mg q6h p.r.n. 2. Xanax 0.5 t.i.d. 3 . Cordarone. 4. Lipitor 80 mg q6. 5. PhosLo. 6. Aranesp 40 mg a day. 7. Duragesic patch. 8. Lasix 80 mg b.i.d. 9. Dilaudid. 10. Lantus 20 units subcu q.a.m. 11. Imdur 30 mg q.a.m. 12. Toprol XL. 13. Entresto. 14. Restoril. 15. Senokot-S. PHYSICAL EXAMINATION: Alert and oriented x3. Pulse 69, blood pressure 107/51, respirations 16, temperature 98, pulse ox 96% on room air. HEENT: Conjunctivae normal. NECK: No JVD. CARDIOVASCULAR: S1/S2. RESPIRATORY: Diminished breath sounds, especially at the bases. ABDOMEN: Soft. Mild diffuse tenderness. LEGS: No edema. NERVOUS: No focal deficits. LABS: WBC 4.2, hemoglobin 7.4. Accu-Cheks noted. ASSESSMENT: 1. Anemia, acute blood loss anemia with possible lower gastrointestinal bleeding, rule out diverticulosis or peptic ulcer disease. 2. Chronic kidney disease, stage 5, on hemodialysis. 3. Macrocytosis. 4. Atrial fibrillation. 5. Cerebrovascular accident, transient ischemic attack. 6. Diabetes mellitus type 2. RECOMMENDATIONS AND DISCUSSION: Recommend to continue current medication, continue to monitor, continue symptomatic treatment. Otherwise, I will repeat hemoglobin tomorrow. The patient continues to be asymptomatic and hemoglobin dropping, will recommend transfusion, continue with hemodialysis. Dr. Phillips's input appreciated, EGD. Continue to monitor. Further recommendations to follow. MTDD
--- NOTE | 2016-12-05 13:36 | CDI ---
In responding to this query, please exercise your independent professional judgment. The [facility] Coding Staff and Clinical Documentation Specialists appreciate your assistance in clarifying documentation, maintaining compliance with coding guidelines, accurately documenting patients condition and capturing severity of illness. The fact that a question is asked does not imply that any particular answer is desired or expected. Communication forms are a method of clarifying documentation and are not made part of the Legal Health Record. Thank you in advance for your clarification. Last Revision, June 2016 Hany Huizar [address] [place] [address] Documentation Clarification Form Date: 12/05/2016 1:30:00 PM From: Nathalie Mccullough CCS, CCDS Admit Date: 12/03/2016 2:57:00 PM Patient Name: Radha Feng Visit Number: [id number] Discharge Date: Dr. Joaquin Phillips: CHF is documented in the 12/04 nephrology consult: Recent hospitalization at [facility] with CHF exacerbation and pleural effusions. History/Risk Factors: CHF, Atrial Fibrillation, CVA/TIA, DM, GERD, Htn, ESRD, Leaky mitral valve, CABG, Pacemaker, former smoker. Clinical Indicators: Patient admitted after hemodialysis with low hemoglobin. VS: BP 92/54, PO 95 2Lnc Treatment: Home dose Lasix 80 mg BID Consults: Nephrology, GI In your professional opinion, can you please clarify the acuity and type of CHF if known? Systolic Heart Failure: Chronic Diastolic Heart Failure: Chronic Systolic & Diastolic Heart Failure: Chronic Unable to determine Other, please specify Please document in your progress notes and discharge summary in order to capture severity of illness and risk of mortality. Include clinical findings that support your diagnosis. FYI: Press F11 to launch patient chart. LIBBY
[2016-12-05] MEDS ORDERED: IV FLUID CONTINUATION 1,000 ML IV ONE (14:58)
[2016-12-05] MEDS ORDERED: PROPOFOL 10 MG/ML 20 ML VIAL IV ONE (14:58)
--- NOTE | 2016-12-05 15:20 | P.PCN ---
Date of Procedure: 12/05/16 Preoperative Diagnosis: Postoperative Diagnosis: Procedure(s) Performed: Procedure: Esophagogastroduodenoscopy and biopsy. Preoperative diagnosis: GI bleeding and anemia. Postoperative diagnosis: Gastritis with no evidence of active bleeding, antral biopsies obtained. Preparation and sedation: Were provided by anesthesia. Brief clinical history: The patient is an 86-year-old female with end-stage renal disease maintained on hemodialysis on a Monday, and Monday schedule via a permacath. Patient came to the ER with complaints of feeling weak and tired for the last two weeks or so. She noticed dark bowel movements intermittently. Her hemoglobin was less than 7 when checked the day before admission and she was sent to the hospital for blood transmission. Her hemoglobin on admission was 7.7, 7.4 this morning. She has not received any blood transfusions yet. She denies any hematemesis. She denies any bloody bowel movements. Denies chest pain. Does admit to intermittent dyspnea. Oral intake is good. She did complete her Monday. No other complaints at this time. Had colonoscopy on more than one occasion, last around 2 years ago. No recent EGD. The details are summarized in the history and physical and dictated consultation. This evaluation is to assess for a possible source of upper GI bleeding. Procedure: With the patient on her left lateral decubitus position and after informed consent and adequate sedation, I passed the Olympus-GIF 160 video upper endoscope through the cricopharyngeus down the esophagus. The esophagus did not show any ulcers, erosions, strictures or Mcdowell's esophagus. There were no varices or mucosal tears or bleeding. There was a very small sliding hiatal hernia then the endoscope was advanced to the rest of the stomach which was insufflated with air and inspected in detail including the retroflex view in the cardia. There was some mottling and erythema in the antrum and there were areas of submucosal hemorrhoids consistent with gastritis but there were no ulcers or bleeding. Pyloric channel, duodenal bulb, post bulbar area and descending duodenum appeared within normal limits. I obtained biopsies from the antrum then the endoscope was withdrawn. The patient tolerated the procedure well. Plan: The patient was reassured. Will allow diet and continue to monitor her blood counts. Further plans can be made based on her course and biopsy results. Will continue to follow with you with interest. Implants: Indications for Procedure: Operative Findings: Description of Procedure:
[2016-12-05 17:35] LABS: Glucose,Whole Blood 133 mg/dL (75-99)
[2016-12-05] MEDS: ISOSORBIDE MONONITRATE ER 30 MG TAB.ER.24H PO SCH (18:01)
[2016-12-05] MEDS: SACUBITRIL/VALSARTAN 24 MG-26 MG TABLET PO SCH ×2 (18:01→21:16)
[2016-12-05] MEDS: METOPROLOL SUCCINATE (ER) 50 MG TAB.ER.24H PO SCH (18:01)
[2016-12-05 20:31] LABS: Glucose,Whole Blood 276 mg/dL (75-99)
[2016-12-05] MEDS: TEMAZEPAM 15 MG CAP PO PRN (21:16)
[2016-12-05] MEDS: FOLIC ACID-VIT B COMPLEX-VIT C 1 CAP PO SCH (21:17)
[2016-12-05] MEDS: ATORVASTATIN 80 MG TAB PO SCH (21:17)
[2016-12-05 22:59] VITALS: RESP 16
[2016-12-06 07:37] LABS: Glucose,Whole Blood 183 mg/dL (75-99)
--- NOTE | 2016-12-06 07:46 | PN ---
DATE OF SERVICE: 12/05/16 This 86-year-old woman who was admitted with anemia and blood loss anemia, underwent EGD by Dr. Phillips. EGD showed gastritis. No evidence of active bleeding or bleeding antral biopsies noted. Hemoglobin has stabilized. Hemoglobin set at 7.7 today. Past medical history reviewed. PHYSICAL EXAMINATION: On exam, the patient is alert and oriented times three. Pulse 61. Blood pressure 140/67. Respiratory rate 18. Temperature 97.9. Pulse ox 97% on 2 L. HEENT: Conjunctivae pale. Neck: No JVD. CARDIOVASCULAR: S1, S2. Respiratory: Breath sounds diminished at the bases. A few scattered rhonchi. Abdomen soft, nontender. No mass palpable. LEGS: No edema. No swelling. 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 LABS: Creatinine 4.6, hemoglobin 7.7. ASSESSMENT: 1. Anemia, possible acute blood loss anemia with possible lower gastrointestinal bleeding. Rule out diverticulosis. 2. Status post EGD showing antral gastritis. 3. Chronic kidney disease Stage V on hemodialysis. 4. Macrocytosis. 5. Atrial fibrillation. 6. Cerebrovascular accident/transient ischemic attack. 7. Diabetes type 2. RECOMMENDATIONS AND DISCUSSION: Recommend to continue the current medications, continue symptomatic treatment, otherwise EGD findings as above. The patient did have colonoscopy about three years ago. Closely monitor with Gastroenterology. Monitor hemoglobin closely. Nephrology evaluation as well. Further recommendations to follow. MTDD
[2016-12-06 07:58] VITALS: TEMP 97.6
[2016-12-06] MEDS: CALCIUM ACETATE 667 MG CAP PO SCH ×2 (08:07→18:27)
[2016-12-06] MEDS: PANTOPRAZOLE 40 MG TABLET PO SCH (08:07)
[2016-12-06] MEDS: INSULIN LISPRO (humaLOG) 300 UNIT/3 ML VIAL SQ SCH ×3 (08:51→18:32)
[2016-12-06 08:55] LABS: Anisocytosis Slight; Basophils % (A) 0 %; CH 34.6; CHCM 31.7; Eosinophils # (A) 0.1 k/uL (0-0.7); Eosinophils % (A) 2 %; HCT 25.3 % (34.0-46.0); HGB 7.9 gm/dL (11.4-16.0); Hypochromasia Slight; Luc # (Auto) 0.08; Luc % (Auto) 2; Lymphocytes # (A) 0.6 k/uL (1.0-4.8); Lymphocytes % (A) 15 %; MCH 34.4 pg (25.0-35.0); MCHC 31.2 g/dL (31.0-37.0); MCV 110.4 fL (80.0-100.0); Macrocytosis Marked; Mean Platelet Volume 8.2; Monocytes # (A) 0.2 k/uL (0-1.0); Monocytes % (A) 5 %; Neutrophils # (A) 3.2 k/uL (1.3-7.7); Neutrophils % (A) 76 %; RBC 2.29 m/uL (3.80-5.40); WBC 4.2 k/uL (3.8-10.6); WBC (Perox) 4.04
--- NOTE | 2016-12-06 09:06 | P.PN ---
Subjective Principal diagnosis: GI bleed anemia 86-year-old female end-stage renal disease dialysis dependent underlying history of atrial fibrillation maintained on Eliquis with increased dose adjustment over the last 2-3 weeks admitted with black colored bowel movements anemia and positive Hemoccult. Status post EGD yesterday with no evidence of active bleeding findings of gastritis. Patient had a black-colored bowel movement after endoscopy yesterday followed by 3 more char filter tank tender head brown bowel movements. Denies abdominal pain. Hemoglobin 7.9. Receiving 1 unit of blood 2 days ago. Eliquis on hold. Objective - Vital Signs Vital signs: Vital Signs Temp 97.6 F 12/06/16 07:00 Pulse 66 12/06/16 08:00 Resp 16 12/06/16 08:00 BP 138/58 12/06/16 07:00 Pulse Ox 94 L 12/06/16 07:00 Intake & Output 12/05/16 12/06/16 12/06/16 18:59 06:59 18:59 Intake Total 25 830 Balance 25 830 Intake: IV 25 Oral 830 Other: # Voids 1 1 - Exam General appearance: The patient is alert, oriented, in no acute distress. HET: Head is normocephalic and atraumatic. Pupils are equal and reactive. Oropharynx is clear without lesions. Neck: Supple without lymphadenopathy. Trachea midline. Heart: S1 S2. Regular rate and rhythm. Lungs: No crackles or wheezes are heard. Abdomen: Soft, nontender, nondistended with bowel sounds. No peritoneal signs. No palpable organomegaly or masses. Extremities: Normal skin color and turgor. No cyanosis, rash, ulceration, clubbing, or edema. Radial and pedal pulses are 2/4 bilaterally. Neurological: No focal deficits. Strength and sensation are grossly intact. - Labs CBC & Chem 7: 12/06/16 08:19 12/06/16 08:19 Labs: Abnormal Lab Results - Last 24 Hours (Table) 12/05/16 12/05/16 12/05/16 Range/Units 07:07 10:58 17:21 RBC 2.21 L (3.80-5.40) m/uL Hgb 7.7 L (11.4-16.0) gm/dL Hct 23.7 L (34.0-46.0) % MCV 107.4 H (80.0-100.0) fL RDW 19.0 H (11.5-15.5) % Plt Count 145 L (150-450) k/uL Lymphocytes # 0.9 L (1.0-4.8) k/uL POC Glucose (mg/dL) 173 H 133 H (75-99) mg/dL 12/05/16 12/06/16 Range/Units 20:30 07:35 RBC (3.80-5.40) m/uL Hgb (11.4-16.0) gm/dL Hct (34.0-46.0) % MCV (80.0-100.0) fL RDW (11.5-15.5) % Plt Count (150-450) k/uL Lymphocytes # (1.0-4.8) k/uL POC Glucose (mg/dL) 276 H 183 H (75-99) mg/dL Assessment and Plan (1) Acute GI bleeding Narrative/Plan: Status post EGD with no evidence of active bleeding or peptic ulcer disease. Small bowel pathology cannot be entirely excluded exacerbated by antiplatelet medications for history of atrial fibrillation. Colonoscopy reported as normal 2-3 years ago. Status: Acute (2) Melena Status: Acute (3) Acute blood loss anemia Narrative/Plan: Acute on chronic blood loss anemia with macrocytosis Status: Acute (4) End stage renal disease Status: Acute Plan: 1. CBC monitoring. Case discussed with Dr. Salomon considering hemoglobin is stable last few bowel movements were char filter tank tender head in color recommend discharge with repeat CBC in 3-5 days. Patient will be discharged without Eliquis. Follow up in GI office in 1 week if anemia since will discuss outpatient small bowel capsule endoscopy Assessment and plan of care discussed with Dr. Hurst
[2016-12-06 09:09] LABS: Calcium 8.9 mg/dL (8.4-10.2); Potassium 4.3 mmol/L (3.5-5.1)
[2016-12-06 11:10] LABS: Manual Review Performed; Polychromasia Present
[2016-12-06 11:14] LABS: Glucose,Whole Blood 188 mg/dL (75-99)
[2016-12-06] MEDS: HYDROcodone/APAP 5-325MG 1 EACH TAB PO PRN (12:21)
[2016-12-06] MEDS: FUROSEMIDE 80 MG TAB PO SCH ×2 (12:21→18:28)
[2016-12-06] MEDS: INSULIN GLARGINE 100 UNIT/ML 10 ML VIAL SQ SCH (12:29)
[2016-12-06 15:12] VITALS: BP 137/74; PULSE 70
[2016-12-06] MEDS ORDERED: MAGNESIUM CITRATE 296 ML BOTTLE PO ONE (17:00)
[2016-12-06 17:01] LABS: Glucose,Whole Blood 222 mg/dL (75-99)
[2016-12-06] MEDS: SACUBITRIL/VALSARTAN 24 MG-26 MG TABLET PO SCH (18:27)
--- NOTE | 2016-12-09 17:56 | DS ---
FINAL DIAGNOSES: 1. Anemia; possible acute blood loss anemia with possible lower gastrointestinal bleeding. Rule out diverticulosis. 2. Status post EGD showing only antral gastritis. 3. Chronic kidney disease, stage V, on hemodialysis. 4. Macrocytosis. 5. Atrial fibrillation. 6. Cerebrovascular accident, transient ischemic attack. 7. Diabetes mellitus, type 2. DISCHARGE DISPOSITION: The patient will be discharged in stable condition with guarded prognosis. HISTORY OF PRESENT ILLNESS: This 86-year-old woman was admitted with GI bleed. EGD was showing only antral gastritis, as mentioned earlier. The patient recently had a colonoscopy 2 to 3 years ago. Gastroenterology recommended a small bowel enteroscopy as an outpatient. On exam, vitals are stable. CARDIOVASCULAR SYSTEM: No angina, palpitations. ABDOMEN: Soft. NERVOUS SYSTEM: No focal deficit. DISCHARGE MEDICATIONS AND ADVICE: 1. Diet is cardiac. 2. Activity limited until followup. 3. Follow up with primary physician in 2 to 3 days. 4. Follow up with Dr. Phillips and Gastroenterology as advised. Outpatient small bowel enteroscopy and further evaluation. 5. Cordarone 200 mg t.i.d. 6. Lipitor 80 mg at bedtime. 7. PhosLo 667 t.i.d. 8. Fentanyl patch 50 mcg q.72 hours. 9. Folic acid 1 p.o. at bedtime. 10. Lasix 80 mg b.i.d. 11. Lantus 20 units subcutaneously in the morning. 12. Humalog scale. 13. Imdur ER 30 mg in the morning. 14. Toprol XL 50 mg. 15. Omeprazole 40 mg daily. 16. Entresto 1 p.o. b.i.d. 17. Senna 1 tablet p.o. b.i.d. p.r.n. Hold Eliquis for now, to be restarted in the outpatient setting. [facility]
== END 2016-12-06 20:24 | disposition home or self-care (01) | DRG 377 ==
LOC: EC 14:03 → 5ONC 14:57
PROVIDERS: ADMIT Hospitalist; ATTEND Hospitalist
PROC: 30233N1 Transfusion of Nonautologous Red Blood Cells into Peripheral Vein, Percutaneous Approach (ICD-10-PCS; 2016-12-04)
PROC: 0DB68ZX Excision of Stomach, Via Natural or Artificial Opening Endoscopic, Diagnostic (ICD-10-PCS; principal; 2016-12-05 09:00)
PROC: 5A1D60Z (ICD-10-PCS; 2016-12-06)
DX: K57.91 Diverticulosis of intestine, part unspecified, without perforation or abscess with bleeding (principal); N18.6 End stage renal disease; I13.2 Hypertensive heart and chronic kidney disease with heart failure and with stage 5 chronic kidney disease, or end stage renal disease; D62 Acute posthemorrhagic anemia; E11.22 Type 2 diabetes mellitus with diabetic chronic kidney disease; E83.9 Disorder of mineral metabolism, unspecified; I05.9 Rheumatic mitral valve disease, unspecified; I25.10 Atherosclerotic heart disease of native coronary artery without angina pectoris; I48.91 Unspecified atrial fibrillation; D53.9 Nutritional anemia, unspecified; I50.9 Heart failure, unspecified; K21.9 Gastro-esophageal reflux disease without esophagitis; K29.70 Gastritis, unspecified, without bleeding; K44.9 Diaphragmatic hernia without obstruction or gangrene; Z79.01 Long term (current) use of anticoagulants; Z79.4 Long term (current) use of insulin; Z79.899 Other long term (current) drug therapy; Z87.891 Personal history of nicotine dependence; Z95.1 Presence of aortocoronary bypass graft; Z99.2 Dependence on renal dialysis; Z91.041 Radiographic dye allergy status; Z95.0 Presence of cardiac pacemaker; Z82.49 Family history of ischemic heart disease and other diseases of the circulatory system
CPT/HCPCS: 36415; 43239; 80048; 80053; 82272; 82550; 82553; 83036; 83735; 84484; 85025; 85027; 85610; 85730; 86850; 86900; 86901; 86920; 88305; 88342; 90935; 93005; 99285

== ENCOUNTER → 2016-12-09 | Outpatient (CLI) | payer MEDICARE, BC ==
[2016-12-09 13:19] LABS: Anisocytosis Slight; Basophils % (A) 0 %; CH 34.9; CHCM 31.7; Eosinophils # (A) 0.1 k/uL (0-0.7); Eosinophils % (A) 3 %; HCT 25.5 % (34.0-46.0); HDW 3.14; HGB 7.9 gm/dL (11.4-16.0); Hypochromasia Slight; Luc % (Auto) 3; Lymphocytes # (A) 0.6 k/uL (1.0-4.8); Lymphocytes % (A) 17 %; MCH 34.4 pg (25.0-35.0); MCHC 30.9 g/dL (31.0-37.0); MCV 111.4 fL (80.0-100.0); Macrocytosis Marked; Mean Platelet Volume 8.4; Monocytes # (A) 0.2 k/uL (0-1.0); Monocytes % (A) 6 %; Neutrophils # (A) 2.5 k/uL (1.3-7.7); Neutrophils % (A) 71 %; RBC 2.29 m/uL (3.80-5.40); WBC 3.5 k/uL (3.8-10.6); WBC (Perox) 3.79
== END | disposition home or self-care (01) ==
LOC: LABWHC1 12:23
PROVIDERS: ATTEND Nurse Practitioner
DX: D64.9 Anemia, unspecified (principal)
CPT/HCPCS: 36415; 85025

== ENCOUNTER 2017-06-15 22:06 | Inpatient (IN) | payer BC, MEDICARE ==
--- NOTE | 2017-06-15 22:57 | ED ---
General Adult HPI - General Chief complaint: Weakness Stated complaint: Weakness Time Seen by Provider: 06/15/17 22:17 Source: patient, RN notes reviewed, old records reviewed Mode of arrival: wheelchair Limitations: no limitations - History of Present Illness Initial comments: This is an 87-year-old female to the ER for evaluation of weakness, significant weakness and progressive weakness for going on about a week now. Patient's dialysis patient with complex medical history. Patient had dialysis today and completed dialysis without difficulty. Patient does have high blood pressure and blood pressures currently been running low, she feels like her appetite is fine. This shows increased fatigue, increased sleeping, no fevers no chest pain or shortness of breath no abdominal pain. - Related Data Home Medications Medication Instructions Recorded Confirmed Amiodarone [Cordarone] 200 mg PO DAILY 12/03/16 06/15/17 Atorvastatin [Lipitor] 80 mg PO HS 12/03/16 06/15/17 Calcium Acetate [PhosLo] 667 mg PO TID@0800,1400,1800 12/03/16 06/15/17 Folic Acid-Vit B Complex-Vit C 1 mg PO HS 12/03/16 06/15/17 [Nephrocaps] Furosemide [Lasix] 80 mg PO BID@0800,1400 12/03/16 06/15/17 INSULIN LISPRO (humaLOG) [humaLOG] See Protocol SQ BID 12/03/16 06/15/17 Insulin Glargine [Lantus] 20 unit SQ QA 12/03/16 06/15/17 Isosorbide Mononitrate ER [Imdur] 15 [facility] PO [facility] 12/03/16 06/15/17 Metoprolol Succinate (ER) [Toprol 50 mg PO [facility] 12/03/16 06/15/17 XL] Omeprazole 40 mg PO BID@0800,1800 12/03/16 06/15/17 fentaNYL 50MCG/HR PATCH [Duragesic 1 patch TRANSDERM Q72H 12/03/16 06/15/17 50MCG/HR] Apixaban [Eliquis] 2.5 mg PO BID@0800,2200 06/15/17 06/15/17 Levothyroxine Sodium [Synthroid] 50 mcg PO DAILY 06/15/17 06/15/17 Losartan Potassium 50 mg PO DAILY 06/15/17 06/15/17 Allergies Allergy/AdvReac Type Severity Reaction Status Date / Time Iodinated Contrast- Oral and AdvReac Severe Compromised Verified 06/15/17 22:44 IV Dye Kidney [Iodinated Contrast Media - Function/Dialysis Oral and] Review of Systems ROS Statement: Those systems with pertinent positive or pertinent negative responses have been documented in the HPI. ROS Other: All systems not noted in ROS Statement are negative. Past Medical History Past Medical History: Atrial Fibrillation, Heart Failure, CVA/TIA, Diabetes Mellitus, GERD/Reflux, Hypertension, Renal Disease Additional Past Medical History / Comment(s): dialysis, leaky mitral valve, CHF History of Any Multi-Drug Resistant Organisms: None Reported Past Surgical History: Coronary Bypass/CABG, Pacemaker Additional Past Surgical History / Comment(s): hx GI Bleed, several colonoscopies Past Anesthesia/Blood Transfusion Reactions: No Reported Reaction Type of Cardiac Device: Permanent Pacemaker Device Placement Date:: 1999 Past Psychological History: No Psychological Hx Reported Smoking Status: Former smoker Past Alcohol Use History: None Reported Past Drug Use History: None Reported - Past Family History Father Family Medical History: Coronary Artery Disease (CAD) Brother(s) Family Medical History: Coronary Artery Disease (CAD) Sister(s) Family Medical History: CVA/TIA General Exam Limitations: no limitations General appearance: alert, in no apparent distress Head exam: Present: atraumatic, normocephalic, normal inspection Eye exam: Present: normal appearance, PERRL, EOMI. Absent: scleral icterus, conjunctival injection, periorbital swelling ENT exam: Present: normal exam, mucous membranes moist Neck exam: Present: normal inspection. Absent: tenderness, meningismus, lymphadenopathy Respiratory exam: Present: normal lung sounds bilaterally. Absent: respiratory distress, wheezes, rales, rhonchi, stridor Cardiovascular Exam: Present: regular rate, normal rhythm, normal heart sounds. Absent: systolic murmur, diastolic murmur, rubs, gallop, clicks GI/Abdominal exam: Present: soft, normal bowel sounds. Absent: distended, tenderness, guarding, rebound, rigid Extremities exam: Present: normal inspection, full ROM, normal capillary refill. Absent: tenderness, pedal edema, joint swelling, calf tenderness Back exam: Present: normal inspection Neurological exam: Present: alert, oriented X3, CN II-XII intact Psychiatric exam: Present: normal affect, normal mood Skin exam: Present: warm, dry, intact, normal color. Absent: rash Course Vital Signs 06/15/17 06/15/17 06/16/17 22:08 22:57 00:24 Temperature 98.3 F Pulse Rate 70 71 70 Respiratory 20 16 16 Rate Blood Pressure 95/46 90/44 93/46 O2 Sat by Pulse 91 L 97 99 Oximetry 06/16/17 06/16/17 00:46 01:33 Temperature Pulse Rate 69 70 Respiratory 16 18 Rate Blood Pressure 98/49 98/52 O2 Sat by Pulse 97 100 Oximetry - Reevaluation(s) Reevaluation #1: Spoke with patient's family, patient's states patient is not been herself, sleeping, significantly fatigued EKG Findings - EKG Comments: EKG Findings:: EKG shows paced rhythm rate of 70, NV 180, QRS to 12, QTC 604 Medical Decision Making - Medical Decision Making 85 field ER with significant weakness. Patient will be admitted for trending of troponin, continue evaluation of blood pressure hemodynamic state - Lab Data Result diagrams: 06/15/17 22:50 06/15/17 22:50 Lab Results 06/15/17 06/15/17 06/15/17 Range/Units 22:50 22:50 22:50 WBC 5.9 (3.8-10.6) k/uL RBC 2.72 L (3.80-5.40) m/uL Hgb 9.7 L (11.4-16.0) gm/dL Hct 29.9 L (34.0-46.0) % MCV 110.2 H (80.0-100.0) fL MCH 35.5 H (25.0-35.0) pg MCHC 32.2 (31.0-37.0) g/dL RDW 16.2 H (11.5-15.5) % Plt Count 86 L (150-450) k/uL Neutrophils % 87 % Lymphocytes % 5 % Monocytes % 6 % Eosinophils % 0 % Basophils % 0 % Neutrophils # 5.1 (1.3-7.7) k/uL Lymphocytes # 0.3 L (1.0-4.8) k/uL Monocytes # 0.4 (0-1.0) k/uL Eosinophils # 0.0 (0-0.7) k/uL Basophils # 0.0 (0-0.2) k/uL Polychromasia Present Anisocytosis Slight Macrocytosis Marked PT (9.0-12.0) sec INR (<1.2) APTT (22.0-30.0) sec Sodium 139 (137-145) mmol/L Potassium 3.6 (3.5-5.1) mmol/L Chloride 93 L (98-107) mmol/L Carbon Dioxide 31 H (22-30) mmol/L Anion Gap 15 mmol/L BUN 29 H (7-17) mg/dL Creatinine 3.30 H (0.52-1.04) mg/dL Est GFR (MDRD) Af Amer 16 (>60 ml/min/1.73 sqM) Est GFR (MDRD) Non-Af 13 (>60 ml/min/1.73 sqM) Glucose 178 H (74-99) mg/dL Calcium 9.2 (8.4-10.2) mg/dL Phosphorus 3.4 (2.5-4.5) mg/dL Magnesium 2.0 (1.6-2.3) mg/dL Total Bilirubin 0.5 (0.2-1.3) mg/dL AST 191 H (14-36) U/L ALT 139 H (9-52) U/L Alkaline Phosphatase 59 (38-126) U/L Total Creatine Kinase 108 (30-135) U/L CK-MB (CK-2) 1.6 (0.0-2.4) ng/mL CK-MB (CK-2) Rel Index 1.5 Troponin I 0.140 H* (0.000-0.034) ng/mL Total Protein 5.9 L (6.3-8.2) g/dL Albumin 3.6 (3.5-5.0) g/dL 06/15/17 Range/Units 22:50 WBC (3.8-10.6) k/uL RBC (3.80-5.40) m/uL Hgb (11.4-16.0) gm/dL Hct (34.0-46.0) % MCV (80.0-100.0) fL MCH (25.0-35.0) pg MCHC (31.0-37.0) g/dL RDW (11.5-15.5) % Plt Count (150-450) k/uL Neutrophils % % Lymphocytes % % Monocytes % % Eosinophils % % Basophils % % Neutrophils # (1.3-7.7) k/uL Lymphocytes # (1.0-4.8) k/uL Monocytes # (0-1.0) k/uL Eosinophils # (0-0.7) k/uL Basophils # (0-0.2) k/uL Polychromasia Anisocytosis Macrocytosis PT 11.2 (9.0-12.0) sec INR 1.2 H (<1.2) APTT 23.3 (22.0-30.0) sec Sodium (137-145) mmol/L Potassium (3.5-5.1) mmol/L Chloride (98-107) mmol/L Carbon Dioxide (22-30) mmol/L Anion Gap mmol/L BUN (7-17) mg/dL Creatinine (0.52-1.04) mg/dL Est GFR (MDRD) Af Amer (>60 ml/min/1.73 sqM) Est GFR (MDRD) Non-Af (>60 ml/min/1.73 sqM) Glucose (74-99) mg/dL Calcium (8.4-10.2) mg/dL Phosphorus (2.5-4.5) mg/dL Magnesium (1.6-2.3) mg/dL Total Bilirubin (0.2-1.3) mg/dL AST (14-36) U/L ALT (9-52) U/L Alkaline Phosphatase (38-126) U/L Total Creatine Kinase (30-135) U/L CK-MB (CK-2) (0.0-2.4) ng/mL CK-MB (CK-2) Rel Index Troponin I (0.000-0.034) ng/mL Total Protein (6.3-8.2) g/dL Albumin (3.5-5.0) g/dL - Radiology Data Radiology results: report reviewed (Chest x-rays negative for acute disease), image reviewed Disposition Clinical Impression: End stage renal disease, Weakness, Elevated troponin Disposition: ADMITTED IP TO THIS [facility] Condition: Fair
[2017-06-15 23:19] LABS: INR 1.2 (<1.2); Partial Thromboplastin Time 23.3 sec (22.0-30.0); Prothrombin Time 11.2 sec (9.0-12.0)
[2017-06-15 23:20] LABS: Anisocytosis Slight; Basophils % (A) 0 %; Eosinophils % (A) 0 %; HCT 29.9 % (34.0-46.0); HGB 9.7 gm/dL (11.4-16.0); Lymphocytes # (A) 0.3 k/uL (1.0-4.8); Lymphocytes % (A) 5 %; MCH 35.5 pg (25.0-35.0); MCHC 32.2 g/dL (31.0-37.0); MCV 110.2 fL (80.0-100.0); Macrocytosis Marked; Mean Platelet Volume 9.1; Monocytes # (A) 0.4 k/uL (0-1.0); Monocytes % (A) 6 %; Neutrophils # (A) 5.1 k/uL (1.3-7.7); Neutrophils % (A) 87 %; RBC 2.72 m/uL (3.80-5.40); RDW 16.2 % (11.5-15.5); WBC 5.9 k/uL (3.8-10.6)
--- NOTE | 2017-06-15 23:22 | XR ---
EXAMINATION TYPE: XR chest 2V DATE OF EXAM: 06/15/2017 COMPARISON: 10/08/2016 HISTORY: Weakness TECHNIQUE: Frontal and lateral views of the chest are obtained. FINDINGS: Heart is moderately enlarged. There is no gross heart failure. There is a dual-lumen right central venous catheter with tip over the right atrium. Thoracic aorta is atheromatous. There is lef t axillary pacemaker with the lead tips in the right ventricle. There are sternal wires. I see no def inite pleural effusion. IMPRESSION: Moderately severe cardiomegaly that is worse than old exam. No gross heart failure.
[2017-06-15 23:25] LABS: Platelet Count 86 k/uL (150-450); Polychromasia Present
[2017-06-15 23:27] LABS: Albumin 3.6 g/dL (3.5-5.0); Calcium 9.2 mg/dL (8.4-10.2); Phosphorus 3.4 mg/dL (2.5-4.5); Potassium 3.6 mmol/L (3.5-5.1); Total Bilirubin 0.5 mg/dL (0.2-1.3); Total Protein 5.9 g/dL (6.3-8.2)
[2017-06-15 23:44] LABS: Creatine Kinase MB 1.6 ng/mL (0.0-2.4)
[2017-06-15 23:52] LABS: Troponin I 0.14 ng/mL (0.000-0.034)
[2017-06-16] MEDS ORDERED: ASPIRIN 81 MG PO STA (01:15)
[2017-06-16] MEDS ORDERED: NITROGLYCERIN SL TABS 0.4 MG TAB SUBLINGUAL PRN (01:15)
[2017-06-16 05:38] LABS: Glucose,Whole Blood 183 mg/dL (75-99)
[2017-06-16 06:37] LABS: Creatine Kinase MB 2.8 ng/mL (0.0-2.4)
[2017-06-16 06:38] LABS: Troponin I 0.813 ng/mL (0.000-0.034)
[2017-06-16] MEDS: INSULIN ASPART 100 UNIT/ML 1 ML 10 ML VIAL SQ SCH ×4 (06:49→21:45)
[2017-06-16 07:52] LABS: Appearance,Urine Cloudy (Clear); Bacteria,Urine Occasional /hpf; Bilirubin,Urine 1+ (Negative); Blood,Urine Trace (Negative); Color,Urine Yellow; Glucose,Urine (UA) Negative (Negative); Ketones,Urine Negative (Negative); Leukocyte Esterase,Urine Large (Negative); Mucus,Urine Rare /hpf; Protein,Urine Trace (Negative); RBC,Urine 10 /hpf (0-5); Specific Gravity,Urine 1.021 (1.001-1.035); Squamous Epithelial Cell,Urine 20 /hpf (0-4); WBC,Urine 52 /hpf (0-5)
--- NOTE | 2017-06-16 08:37 | P.NPCON ---
History of Present Illness - Reason for Consult end stage renal disease - History of Present Illness Reason for consultation: End-stage renal disease History of present illness: Patient is a 87-year-old female seen in renal consultation for end-stage renal disease. She is maintained on hemodialysis on a Monday schedule via permacath. Patient does have a upper extremity AV fistula but refuses to use it as she developed cellulitis in the past and is afraid to get another infection. Patient presented to the hospital due to generalized weakness. Patient states she felt quite weak on Monday and also has not been able to eat much. She's been sleeping more than usual. She did go to hemodialysis yesterday and had 2.5 L ultrafiltration. Her blood pressure prior to dialysis was in the systolic 80s. She does take antihypertensives at home. Additionally her dry weight was being challenged as she was complaining of edema. This morning her blood pressure was 110/53 and her orthostatics were negative. Overall she is feeling better. Her home antihypertensives are held. Denies any nausea vomiting. Denies any fever or chills. Denies chest pain or shortness of breath. No vomiting or diarrhea. Vital signs are stable. General: The patient appeared well nourished and normally developed. HEENT: Head exam is unremarkable. Neck is without jugular venous distension. LUNGS: Lungs are clear to auscultation and percussion. Breath sounds decreased. HEART: Rate and Rhythm are regular. First and second heart sounds normal. No murmurs, rubs or gallops. ABDOMEN: Abdominal exam reveals normal bowel sounds. Non-tender and non- distended. No evidence of peritonitis. EXTREMITITES: No clubbing, cyanosis, or edema. Past Medical History Past Medical History: Atrial Fibrillation, Heart Failure, CVA/TIA, Diabetes Mellitus, GERD/Reflux, Hypertension, Renal Disease Additional Past Medical History / Comment(s): dialysis, leaky mitral valve, CHF History of Any Multi-Drug Resistant Organisms: None Reported Past Surgical History: Coronary Bypass/CABG, Heart Catheterization With Stent, Pacemaker Additional Past Surgical History / Comment(s): hx GI Bleed, several colonoscopies Past Anesthesia/Blood Transfusion Reactions: No Reported Reaction Date of Last Stent Placement:: n/a Type of Cardiac Device: Permanent Pacemaker Device Placement Date:: 1999 Past Psychological History: No Psychological Hx Reported Smoking Status: Former smoker Past Alcohol Use History: None Reported Past Drug Use History: None Reported - Past Family History Father Family Medical History: Coronary Artery Disease (CAD) Brother(s) Family Medical History: Coronary Artery Disease (CAD) Sister(s) Family Medical History: CVA/TIA Medications and Allergies Home Medications Medication Instructions Recorded Confirmed Type Amiodarone [Cordarone] 200 mg PO DAILY 12/03/16 06/15/17 History Atorvastatin [Lipitor] 80 mg PO HS 12/03/16 06/15/17 History Calcium Acetate [PhosLo] 667 mg PO TID@0800,1400,1800 12/03/16 06/15/17 History Folic Acid-Vit B Complex-Vit C 1 mg PO HS 12/03/16 06/15/17 History [Nephrocaps] Furosemide [Lasix] 80 mg PO BID@0800,1400 12/03/16 06/15/17 History INSULIN LISPRO (humaLOG) [humaLOG] See Protocol SQ BID 12/03/16 06/15/17 History Insulin Glargine [Lantus] 20 unit SQ QAM 12/03/16 06/15/17 History Isosorbide Mononitrate ER [Imdur] 15 mg PO QAM 12/03/16 06/15/17 History Metoprolol Succinate (ER) [Toprol 50 mg PO QAM 12/03/16 06/15/17 History XL] Omeprazole 40 mg PO BID@0800,1800 12/03/16 06/15/17 History fentaNYL 50MCG/HR PATCH [Duragesic 1 patch TRANSDERM Q72H 12/03/16 06/15/17 History 50MCG/HR] Apixaban [Eliquis] 2.5 mg PO BID@0800,2200 06/15/17 06/15/17 History Levothyroxine Sodium [Synthroid] 50 mcg PO DAILY 06/15/17 06/15/17 History Losartan Potassium 50 mg PO DAILY 06/15/17 06/15/17 History Allergies Allergy/AdvReac Type Severity Reaction Status Date / Time Iodinated Contrast- Oral and AdvReac Severe Compromised Verified 06/15/17 22:44 IV Dye Kidney [Iodinated Contrast Media - Function/Dialysis Oral and] Physical Exam Vitals: Vital Signs Temp Pulse Pulse Resp BP BP BP 06/16/17 08:18 98.0 F 70 15 06/16/17 06:18 119/58 06/16/17 02:11 97.5 F L 72 16 107/54 06/16/17 01:33 70 18 98/52 06/16/17 00:46 69 16 98/49 06/16/17 00:24 70 16 93/46 06/15/17 22:57 71 16 90/44 06/15/17 22:08 98.3 F 70 20 95/46 BP BP Pulse Ox 06/16/17 08:18 110/53 100 06/16/17 06:18 120/54 111/52 06/16/17 02:11 97 06/16/17 01:33 100 06/16/17 00:46 97 06/16/17 00:24 99 06/15/17 22:57 97 06/15/17 22:08 91 L Intake and Output 06/15/17 06/16/17 06/16/17 22:59 06:59 14:59 Intake Total 150 0 Balance 150 0 Intake: Oral 150 0 Other: Weight 69.853 kg 69.1 kg Results - Lab Results Most recent lab results Calcium 9.2 mg/dL (8.4-10.2) 06/15/17 22:50 Phosphorus 3.4 mg/dL (2.5-4.5) 06/15/17 22:50 Magnesium 2.0 mg/dL (1.6-2.3) 06/15/17 22:50 06/15/17 22:50 06/15/17 22:50 Assessment and Plan Plan: Assessment: #1. End-stage renal disease maintained on hemodialysis on a Monday schedule via permacath. Patient refuses to use AV fistula. #2. Generalized weakness related to hypotension. #3. Hypotension related to antihypertensives as well as ultrafiltration. Orthostatics negative. #4. Chronic kidney disease mineral bone disease maintained on PhosLo. #5. Hypertension with chronic kidney disease. Currently controlled. #6. Insulin-dependent diabetes mellitus. #7. History of A. fib maintained on Eliquis. #8. Anemia of chronic kidney disease. Rule out iron deficiency. Plan: Hemodialysis tomorrow with goal 1-2 L ultrafiltration. Continue to hold home antihypertensives for systolic blood pressure less than 120. Resume PhosLo. Check iron studies. Cardiology recommendations pending. Thank you for the consultation. I will continue to follow the patient with you during her hospital stay.
--- NOTE | 2017-06-16 10:17 | ECHOF ---
Referral Reason:elevated trop assessment of EF MEASUREMENTS -------- HEIGHT: 157.5 cm WEIGHT: 68.9 kg BP: 111/52 RVIDd: 4.3 cm (< 3.3) IVSd: 1.3 cm (0.6 - 1.1) LVIDd: 4.3 cm (3.9 - 5.3) LVPWd: 1.5 cm (0.6 - 1.1) IVSs: 1.8 cm LVIDs: 3.5 cm LVPWs: 1.9 cm LA Diam: 4.8 cm (2.7 - 3.8) LAESV Index (A-L): 57.88 ml/m Ao Diam: 2.9 cm (2.0 - 3.7) AV Cusp: 2.1 cm (1.5 - 2.6) MV EXCURSION: 14.056 mm (> 18.000) MV EF SLOPE: 33 mm/s (70 - 150) EPSS: 0.9 cm MV E Jonathan: 1.26 m/s MV DecT: 241 ms MV A Jonathan: 0.37 m/s MV E/A Ratio: 3.38 AR PHT: 471 ms RAP: 5.00 mmHg RVSP: 50.84 mmHg FINDINGS -------- A-V paced rhythm. This was a technically good study. The left ventricular size is normal. There is moderate concentric left ventricular hypertrophy. O verall left ventricular systolic function is moderately impaired with, an EF between 35 - 40 %. Bas al inferior LV wall motion is hypokinetic. Mid inferoseptal LV wall motion is hypokinetic. Apic al septum LV wall motion is hypokinetic. The right ventricle is severely enlarged. LA is severely dilated >40 ml/m2 The right atrium is normal in size. There is mild aortic valve sclerosis. There is mild aortic regurgitation. The mitral valve leaflets are mildly thickened. Mild mitral annular calcification present. Mild-t o-moderate mitral regurgitation is present. Moderate to severe tricuspid regurgitation present. There is moderate pulmonary hypertension. The right ventricular systolic pressure, as measured by Doppler, is 50.84mmHg. The pulmonic valve was not well visualized. The aortic root size is normal. Normal inferior vena cava with normal inspiratory collapse consistent with estimated right atrial pre ssure of 5 mmHg. The inferior vena cava is mildly dilated. There is no pericardial effusion. CONCLUSIONS -------- 1. A-V paced rhythm. 2. This was a technically good study. 3. The left ventricular size is normal. 4. There is moderate concentric left ventricular hypertrophy. 5. Overall left ventricular systolic function is moderately impaired with, an EF between 35 - 40 %. 6. Basal inferior LV wall motion is hypokinetic. 7. Mid inferoseptal LV wall motion is hypokinetic. 8. Apical septum LV wall motion is hypokinetic. 9. The right ventricle is severely enlarged. 10. LA is severely dilated >40 ml/m2 11. The right atrium is normal in size. 12. There is mild aortic valve sclerosis. 13. There is mild aortic regurgitation. 14. The mitral valve leaflets are mildly thickened. 15. Mild mitral annular calcification present. 16. [id number] mitral regurgitation is present. 17. Moderate to severe tricuspid regurgitation present. 18. There is moderate pulmonary hypertension. 19. The right ventricular systolic pressure, as measured by Doppler, is 50.84mmHg. 20. The pulmonic valve was not well visualized. 21. The aortic root size is normal. 22. Normal inferior vena cava with normal inspiratory collapse consistent with estimated right atrial pressure of 5 mmHg. 23. The inferior vena cava is mildly dilated. 24. There is no pericardial effusion. [employer] WORKER: Angelica Lu RDCS
[2017-06-16] MEDS: APIXABAN 2.5 MG TABLET PO SCH ×2 (10:20→21:46)
[2017-06-16] MEDS: INSULIN DETEMIR 100 UNIT/ML 10 ML VIAL SQ SCH (10:20)
[2017-06-16 11:46] LABS: Troponin I 0.935 ng/mL (0.000-0.034)
[2017-06-16 12:01] LABS: Glucose,Whole Blood 163 mg/dL (75-99)
--- NOTE | 2017-06-16 12:18 | P.CRDCN ---
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 She has a known history of CABG in 1990, prior stenting with the most recent several years ago, permanent pacemaker, paroxysmal atrial fibrillation, hypertension and hyperlipidemia. She is also an end-stage renal disease and on hemodialysis. Presented to the emergency department due to complaints of significant weakness over the last few days and hypotension. She underwent dialysis yesterday and tolerated this well however her blood pressure was significantly lower than usual. After arriving home she was very weak and decided to come to the emergency department. EKG on admission shows atrial and ventricular paced rhythm. Laboratory values are reviewed and showed a hemoglobin 9.7, BUN 29 and creatinine 3.3, elevated troponins of 0.140 and 0.813. She had no complaints of chest discomfort or shortness of breath. She's had no fever, chills or nausea and vomiting. Past Medical History Past Medical History: Atrial Fibrillation, Heart Failure, CVA/TIA, Diabetes Mellitus, GERD/Reflux, Hypertension, Renal Disease Additional Past Medical History / Comment(s): dialysis, leaky mitral valve, CHF History of Any Multi-Drug Resistant Organisms: None Reported Past Surgical History: Coronary Bypass/CABG, Heart Catheterization With Stent, Pacemaker Additional Past Surgical History / Comment(s): hx GI Bleed, several colonoscopies Past Anesthesia/Blood Transfusion Reactions: No Reported Reaction Date of Last Stent Placement:: n/a Type of Cardiac Device: Permanent Pacemaker Device Placement Date:: 1999 Past Psychological History: No Psychological Hx Reported Smoking Status: Former smoker Past Alcohol Use History: None Reported Past Drug Use History: None Reported - Past Family History Father Family Medical History: Coronary Artery Disease (CAD) Brother(s) Family Medical History: Coronary Artery Disease (CAD) Sister(s) Family Medical History: CVA/TIA Medications and Allergies Home Medications Medication Instructions Recorded Confirmed Type Amiodarone [Cordarone] 200 mg PO DAILY 12/03/16 06/15/17 History Atorvastatin [Lipitor] 80 mg PO HS 12/03/16 06/15/17 History Calcium Acetate [PhosLo] 667 mg PO TID@0800,1400,1800 12/03/16 06/15/17 History Folic Acid-Vit B Complex-Vit C 1 mg PO HS 12/03/16 06/15/17 History [Nephrocaps] Furosemide [Lasix] 80 mg PO BID@0800,1400 12/03/16 06/15/17 History INSULIN LISPRO (humaLOG) [humaLOG] See Protocol SQ BID 12/03/16 06/15/17 History Insulin Glargine [Lantus] 20 unit SQ QAM 12/03/16 06/15/17 History Isosorbide Mononitrate ER [Imdur] 15 mg PO QAM 12/03/16 06/15/17 History Metoprolol Succinate (ER) [Toprol 50 mg PO QAM 12/03/16 06/15/17 History XL] Omeprazole 40 mg PO BID@0800,1800 12/03/16 06/15/17 History fentaNYL 50MCG/HR PATCH [Duragesic 1 patch TRANSDERM Q72H 12/03/16 06/15/17 History 50MCG/HR] Apixaban [Eliquis] 2.5 mg PO BID@0800,2200 06/15/17 06/15/17 History Levothyroxine Sodium [Synthroid] 50 mcg PO DAILY 06/15/17 06/15/17 History Losartan Potassium 50 mg PO DAILY 06/15/17 06/15/17 History Allergies Allergy/AdvReac Type Severity Reaction Status Date / Time Iodinated Contrast- Oral and AdvReac Severe Compromised Verified 06/15/17 22:44 IV Dye Kidney [Iodinated Contrast Media - Function/Dialysis Oral and] Physical Exam Vitals: Vital Signs Temp Pulse Pulse Resp BP BP BP 06/16/17 08:58 06/16/17 08:18 98.0 F 70 15 06/16/17 06:18 119/58 06/16/17 02:11 97.5 F L 72 16 107/54 06/16/17 01:33 70 18 98/52 06/16/17 00:46 69 16 98/49 06/16/17 00:24 70 16 93/46 06/15/17 22:57 71 16 90/44 06/15/17 22:08 98.3 F 70 20 95/46 BP BP Pulse Ox 06/16/17 08:58 100 06/16/17 08:18 110/53 100 06/16/17 06:18 120/54 111/52 06/16/17 02:11 97 06/16/17 01:33 100 06/16/17 00:46 97 06/16/17 00:24 99 06/15/17 22:57 97 06/15/17 22:08 91 L Intake and Output 06/15/17 06/16/17 06/16/17 22:59 06:59 14:59 Intake Total 150 0 Balance 150 0 Intake: Oral 150 0 Other: Voiding Method Toilet Weight 69.853 kg 69.1 kg PHYSICAL EXAMINATION: HEENT: Head is atraumatic, normocephalic. Pupils equal, round. Neck is supple. There is no elevated jugular venous pressure. HEART EXAMINATION: Heart sounds regular, S1 and S2 with a soft holosystolic murmur. CHEST EXAMINATION: Lungs reveal rales to bilateral bases. No chest wall tenderness is noted on palpation or with deep breathing. ABDOMEN: Soft, nontender. Bowel sounds are heard. No organomegaly noted. EXTREMITIES: 2+ peripheral pulses with no evidence of peripheral edema and no calf tenderness noted. NEUROLOGIC patient is awake, alert and oriented x3. . Results 06/15/17 22:50 06/15/17 22:50 Cardiac Enzymes 06/15/17 06/15/17 06/16/17 Range/Units 22:50 22:50 05:21 AST 191 H (14-36) U/L CK-MB (CK-2) 1.6 2.8 H* (0.0-2.4) ng/mL Troponin I 0.140 H* 0.813 H* (0.000-0.034) ng/mL Coagulation 06/15/17 Range/Units 22:50 PT 11.2 (9.0-12.0) sec APTT 23.3 (22.0-30.0) sec CBC 06/15/17 Range/Units 22:50 WBC 5.9 (3.8-10.6) k/uL RBC 2.72 L (3.80-5.40) m/uL Hgb 9.7 L (11.4-16.0) gm/dL Hct 29.9 L (34.0-46.0) % Plt Count 86 L (150-450) k/uL Comprehensive Metabolic Panel 06/15/17 Range/Units 22:50 Sodium 139 (137-145) mmol/L Potassium 3.6 (3.5-5.1) mmol/L Chloride 93 L (98-107) mmol/L Carbon Dioxide 31 H (22-30) mmol/L BUN 29 H (7-17) mg/dL Creatinine 3.30 H (0.52-1.04) mg/dL Glucose 178 H (74-99) mg/dL Calcium 9.2 (8.4-10.2) mg/dL AST 191 H (14-36) U/L ALT 139 H (9-52) U/L Alkaline Phosphatase 59 (38-126) U/L Total Protein 5.9 L (6.3-8.2) g/dL Albumin 3.6 (3.5-5.0) g/dL Current Medications Generic Name Dose Route Start Last Admin Trade Name Freq PRN Reason Stop Dose Admin Apixaban 2.5 mg 06/16/17 09:08 06/16/17 10:20 Eliquis PO 2.5 mg BID@0800,2200 [facility] Administration Aspirin 325 mg 06/17/17 09:00 Aspirin PO DAILY [facility] Calcium Acetate 667 mg 06/16/17 12:30 Phoslo PO TID-W/MEALS [facility] Insulin Aspart 0 unit 06/16/17 07:30 06/16/17 06:49 Novolog SQ Not Given ACHS [facility] Protocol Insulin Detemir 20 unit 06/16/17 09:15 06/16/17 10:20 Levemir SQ 20 unit QAM [facility] Administration Nitroglycerin 0.4 mg 06/16/17 01:15 Nitrostat SUBLINGUAL Q5M PRN Chest Pain Intake and Output 06/15/17 06/16/17 06/16/17 22:59 06:59 14:59 Intake Total 150 0 Balance 150 0 Intake: Oral 150 0 Other: Voiding Method Toilet Weight 69.853 kg 69.1 kg 06/15/17 22:50 06/15/17 22:50 EKG Interpretations (text) Atrial and ventricular paced rhythm Assessment and Plan Assessment: #1 generalized weakness secondary to hypotension #2 hypotension secondary to ultrafiltration and antihypertensives #3 end-stage renal disease on hemodialysis #4 elevated troponins cannot completely rule out myocardial injury at this time #5 hypertension, currently hypotensive on therapy #6 coronary artery disease with history of prior CABG and stenting #7 paroxysmal atrial fibrillation #[address] Plan: From cardiology's perspective, medications were reviewed, we will begin resuming home medications when blood pressure stabilizes. We will continue to watch troponin trend. We will obtain a 2-D echo with Doppler. No invasive cardiac workup at this time. Further recommendations to follow. HEAV[employer] EQUIPMENT MECHANIC note has been reviewed, I agree with a documented findings and plan of care. Patient was seen and examined.
[2017-06-16] MEDS: CALCIUM ACETATE 667 MG CAP PO SCH ×2 (12:43→18:31)
[2017-06-16] MEDS ORDERED: VANCOMYCIN IV PER PHARMACY 1 EACH MISC MISCELLANE PRN (13:26)
[2017-06-16] MEDS ORDERED: VANCOMYCIN 1,250 MG in SODIUM CHLORIDE 0.9% 250 ML IVPB ONE (14:00)
[2017-06-16 16:31] LABS: Glucose,Whole Blood 253 mg/dL (75-99)
[2017-06-16 16:42] LABS: Iron Saturation 12.63 (12.00-45.00)
--- NOTE | 2017-06-16 18:18 | HP ---
HISTORY AND PHYSICAL DATE OF SERVICE: 06/16/2017 CHIEF COMPLAINT: Weakness. BRIEF HISTORY: This patient is an 87-year-old female who follows up with Dr. Cheek as outpatient with a past medical history of atrial fibrillation, history of coronary artery disease, CHF, diabetes mellitus, hypertension, who presented to ED with the complaint of significant weakness going on for the last few days. The patient claims that she has been hypotensive even before dialysis, but yesterday when she went underwent dialysis she tolerated it well, but later her blood pressure dropped down significantly lower. She was extremely weak, did not have any chest pain, though; no palpitations, but she decided to come to ED. PAST MEDICAL HISTORY: 1. History of coronary artery disease. 2. Congestive heart failure. 3. History of atrial fibrillation. 4. CVA/TIA. 5. Diabetes mellitus. 6. Gastroesophageal reflux disease. 7. Hypertension. 8. End-stage renal disease/hemodialysis. 9. History of hypothyroidism. PAST SURGICAL HISTORY: 1. Coronary artery bypass grafting. 2. Heart catheterization with stent placement. 3. Pacemaker insertion. 4. Several colonoscopies for GI bleed. 5. Permanent pacemaker insertion. SOCIAL HISTORY: Patient has a long-standing history of smoking but quit a long time ago. Denies any history of alcohol or drug abuse. FAMILY HISTORY: Significant for coronary artery disease in father and brother, history of CVA and TIA in sister. ALLERGIES: IODINATED CONTRAST, ORAL OR IV. MEDICATIONS: 1. Cordarone 200 mg p.o. daily. 2. Lipitor 80 mg p.o. at bedtime. 3. PhosLo 667 mg p.o. t.i.d. 4. Nephrocaps 1 mg p.o. at bedtime. 5. Lasix 80 mg p.o. b.i.d. 6. Insulin Lispro per sliding scale protocol. 7. Lantus 20 units subcutaneously each morning. 8. Imdur 15 mg p.o. each morning. 9. Toprol XL 50 mg p.o. each morning. 10.Omeprazole 40 mg p.o. b.i.d. 11.Fentanyl patch 50 mcg per 72 hours. 12.Eliquis 2.5 mg p.o. b.i.d. 13.Levothyroxine 50 mcg daily. 14.Losartan 50 mg p.o. daily. REVIEW OF SYSTEMS: CONSTITUTIONAL: Patient denies fever or chills. No unexplained weight loss. No appetite loss. HEENT: No vision loss or hearing loss. RESPIRATORY: Patient has no history of shortness of breath or wheezing. CARDIOVASCULAR: No chest pain or palpitations. ABDOMEN/GI: No nausea, vomiting, diarrhea. GENITOURINARY: No dysuria. No hematuria. MUSCULOSKELETAL: No joint or muscle deformities or tenderness. CENTRAL NERVOUS SYSTEM: No dizziness. No lightheadedness or headaches. SKIN: No rashes or pigmentation. HEMATOLOGICAL: No bleeding or clotting disorders. RHEUMATOLOGICAL: No joint swelling, tenderness or deformities. Rest of 14-point review of systems is unremarkable. PHYSICAL EXAMINATION: VITAL SIGNS: Temperature of 98, pulse 70, respiration 15, blood pressure 119/58. HEENT: Atraumatic, normocephalic. Pupils equal and reactive to light. Extraocular movements intact. Buccal mucosa is fair. NECK EXAMINATION: Neck is supple. No goiter or lymphadenopathy. JVD is negative. No carotid bruit heard. RESPIRATORY: Lungs are clear to auscultate. No rales, rhonchi or wheezes. CARDIOVASCULAR EXAMINATION: Heart is regular rate and rhythm with a grade 2 to 3 holosystolic murmur. ABDOMEN/GI: Abdomen is soft and nontender, nondistended. Bowel sounds positive. EXTREMITIES: No edema, clubbing, cyanosis. Pulses are palpable 2+. NEUROLOGICAL EXAMINATION: Patient is awake, alert, oriented x3. She has no gross motor or sensory deficit. Skin is warm, dry, without pigmentations or rashes. PSYCHIATRIC EXAMINATION: Fair affect, judgment and mood. LYMPHATIC SYSTEM: No enlarged lymph nodes. LABS AND X-RAY DATA: CBC: White blood count of 5.9, hemoglobin 9.7, hematocrit 29.9 and platelet count of 86. Chemical profile: Sodium 136, potassium 3.6, chloride 93, bicarb 31, BUN 29, creatinine 3.3. Glucose 178. Patient's EKG showed atrial fibrillation with RVR. ASSESSMENT: 1. Atrial fibrillation with rapid ventricular response. 2. End-stage renal disease, hemodialysis. 3. Hypotension possibly iatrogenic. 4. Weakness/debility, possibly secondary to hypotension. 5. Elevated troponin; rule out acute coronary syndrome. 6. History of hypertension. 7. History of coronary artery disease with coronary artery bypass grafting and stenting. 8. History of permanent pacemaker. 9. Deep venous thrombosis/gastrointestinal prophylaxis. 10.FULL CODE. PLAN: To admit the patient to monitored floor. Trend troponins and EKG. Order 2D echocardiogram. Will resume all home medications except for antihypertensives. Cardiology and nephrology consultations are done. Patient is to undergo dialysis Tuesdays, and Saturdays. Patient was started on IV Cardizem drip in the ED. Will resume that. Further recommendations from Cardiology Service. MMODL / IJN: [id number] /
[2017-06-16] MEDS: ACETAMINOPHEN TAB 325 MG TAB PO PRN (18:43)
[2017-06-16 21:12] LABS: Glucose,Whole Blood 219 mg/dL (75-99)
[2017-06-16] MEDS: ZOLPIDEM 10 MG TAB PO PRN (23:31)
[2017-06-17 06:13] LABS: Glucose,Whole Blood 114 mg/dL (75-99)
[2017-06-17] MEDS: INSULIN ASPART 100 UNIT/ML 1 ML 10 ML VIAL SQ SCH ×4 (06:21→21:10)
[2017-06-17] MEDS: CALCIUM ACETATE 667 MG CAP PO SCH ×3 (06:24→18:28)
[2017-06-17] MEDS: ACETAMINOPHEN TAB 325 MG TAB PO PRN (06:24)
[2017-06-17 06:31] LABS: Cholesterol 119 mg/dL (<200); HDL Cholesterol 46 mg/dL (40-60); LDL Cholesterol,Calculated 52 mg/dL (0-99); Triglycerides 103 mg/dL (<150)
[2017-06-17] MEDS: INSULIN DETEMIR 100 UNIT/ML 10 ML VIAL SQ SCH (08:36)
[2017-06-17] MEDS: ASPIRIN 325 MG TAB PO SCH (08:36)
[2017-06-17] MEDS: APIXABAN 2.5 MG TABLET PO SCH ×2 (08:36→21:07)
[2017-06-17] MEDS ORDERED: VANCOMYCIN 1,250 MG in SODIUM CHLORIDE 0.9% 250 ML IVPB ONE (09:00)
--- NOTE | 2017-06-17 10:46 | P.PN ---
Subjective Patient is seen in follow-up for end-stage renal disease. She is maintained on hemodialysis on a Monday schedule via a permacath. Patient does have a left upper extremity AV fistula which she has been refusing to use as she had cellulitis in the past and doesn't want to be poked regularly. Patient presented with hypotension. Her blood pressures are now better controlled. She is currently seen was undergoing hemodialysis. She admits to soreness in her neck. Her blood cultures from June 15 are positive for group D enterococcus. No vomiting or diarrhea. Vital signs are stable. General: The patient appeared well nourished and normally developed. HEENT: Head exam is unremarkable. Neck is without jugular venous distension. LUNGS: Lungs are clear to auscultation and percussion. Breath sounds decreased. HEART: Rate and Rhythm are regular. First and second heart sounds normal. No murmurs, rubs or gallops. ABDOMEN: Abdominal exam reveals normal bowel sounds. Non-tender and non- distended. No evidence of peritonitis. EXTREMITITES: No clubbing, cyanosis, or edema. Objective - Vital Signs Vital signs: Vital Signs Temp 98.1 F 06/17/17 08:00 Pulse 70 06/17/17 08:00 Resp 18 06/17/17 08:00 BP 111/45 06/17/17 08:00 Pulse Ox 98 06/17/17 08:00 Intake & Output 06/16/17 06/17/17 06/17/17 18:59 06:59 18:59 Intake Total 480 300 Balance 480 300 Weight 71.3 kg Intake: Oral 480 300 Other: Voiding Method Toilet # Voids 1 1 - Labs CBC & Chem 7: 06/15/17 22:50 06/15/17 22:50 Labs: Abnormal Lab Results - Last 24 Hours (Table) 06/16/17 06/16/17 06/16/17 Range/Units 10:36 10:36 11:58 POC Glucose (mg/dL) 163 H (75-99) mg/dL Iron 25 L (50-170) ug/dL TIBC 198 L (228-460) ug/dL Ferritin 2677.2 H (10.0-291.0) ng/mL Total Creatine Kinase 150 H (30-135) U/L CK-MB (CK-2) 3.0 H* (0.0-2.4) ng/mL Troponin I 0.935 H* (0.000-0.034) ng/mL 06/16/17 06/16/17 06/17/17 Range/Units 16:27 20:59 06:11 POC Glucose (mg/dL) 253 H 219 H 114 H (75-99) mg/dL Iron (50-170) ug/dL TIBC (228-460) ug/dL Ferritin (10.0-291.0) ng/mL Total Creatine Kinase (30-135) U/L CK-MB (CK-2) (0.0-2.4) ng/mL Troponin I (0.000-0.034) ng/mL Microbiology - Last 24 Hours (Table) 06/16/17 14:06 Blood Culture - Preliminary Blood 06/15/17 07:34 Urine Culture - Preliminary Urine,Voided 06/15/17 22:50 Blood Culture Gram Stain - Preliminary Blood Blood Culture - Preliminary Group D Enterococcus 06/15/17 22:50 Blood Culture - Final Blood Assessment and Plan Plan: Assessment: #1. End-stage renal disease maintained on hemodialysis on a Monday schedule via permacath. Patient refuses to use AV fistula. #2. Generalized weakness related to hypotension. #3. Hypotension related to antihypertensives as well as ultrafiltration. Orthostatics negative. Also component of bacteremia. Blood pressure stable. #4. Chronic kidney disease mineral bone disease maintained on PhosLo. #5. Hypertension with chronic kidney disease. Currently controlled. #6. Insulin-dependent diabetes mellitus. #7. History of A. fib maintained on Eliquis. #8. Anemia of chronic kidney disease. Iron deficiency noted. #9. Group D enterococcus bacteremia. Permacath to be the likely source. Plan: Currently seen while undergoing hemodialysis. Next treatment on Monday. Continue to hold home antihypertensives for systolic blood pressure less than 120. Start Aranesp. I will hold off on IV iron due to bacteremia. 1 dose of IV vancomycin today. Obtain culture from dialysis catheter. Consult infectious disease. Follow-up cultures. May need to exchange the dialysis catheter. I did discuss with her in detail the importance of avoiding dialysis catheter and using the AV fistula. Patient is very hesitant but will think about it.
[2017-06-17] MEDS ORDERED: DARBEPOETIN ALFA 40 MCG/0.4 ML SYRINGE SQ SCH (11:00)
[2017-06-17 12:00] LABS: Glucose,Whole Blood 144 mg/dL (75-99)
--- NOTE | 2017-06-17 13:13 | P.PN ---
Subjective Progress Note Date: 06/17/17 This is a pleasant 87-year-old female patient who [facility] She has a known history of CABG in 1990, prior stenting with the most recent several years ago, permanent pacemaker, paroxysmal atrial fibrillation, hypertension and hyperlipidemia. She is also an end-stage renal disease and on hemodialysis. Presented to the emergency department due to complaints of significant weakness over the last few days and hypotension. She underwent dialysis yesterday and tolerated this well however her blood pressure was significantly lower than usual. After arriving home she was very weak and decided to come to the emergency department. EKG on admission shows atrial and ventricular paced rhythm. Laboratory values are reviewed and showed a hemoglobin 9.7, BUN 29 and creatinine 3.3, elevated troponins of 0.140 and 0.813. She's had no complaints of chest discomfort or shortness of breath. She's had no fever, chills or nausea and vomiting. Echocardiogram was done and showed moderately impaired LV systolic function with ejection fraction between 35-40% with some basal inferior, mid inferior septal and apical septal hypokinesis, mild to moderate mitral regurgitation and moderate to severe tricuspid regurgitation. Blood cultures were drawn and came back to be positive for group D enterococcus. She is currently undergoing hemodialysis and will have further blood cultures drawn off dialysis catheter. Objective - Vital Signs Vital signs: Vital Signs Temp 98.1 F 06/17/17 08:00 Pulse 70 06/17/17 08:00 Resp 18 06/17/17 08:00 BP 111/45 06/17/17 08:00 Pulse Ox 98 06/17/17 08:00 Intake & Output 06/16/17 06/17/17 06/17/17 18:59 06:59 18:59 Intake Total 480 300 Balance 480 300 Weight 71.3 kg Intake: Oral 480 300 Other: Voiding Method Toilet # Voids 1 1 - Exam PHYSICAL EXAMINATION: HEENT: Head is atraumatic, normocephalic. Pupils equal, round. Neck is supple. There is no elevated jugular venous pressure. HEART EXAMINATION: Heart sounds regular, S1 and S2 with a soft holosystolic murmur. CHEST EXAMINATION: Lungs reveal rales to bilateral bases. No chest wall tenderness is noted on palpation or with deep breathing. ABDOMEN: Soft, nontender. Bowel sounds are heard. No organomegaly noted. EXTREMITIES: 2+ peripheral pulses with no evidence of peripheral edema and no calf tenderness noted. NEUROLOGIC patient is awake, alert and oriented x3. - Labs CBC & Chem 7: 06/15/17 22:50 06/15/17 22:50 Labs: Abnormal Lab Results - Last 24 Hours (Table) 06/16/17 06/16/17 06/16/17 Range/Units 10:36 16:27 20:59 POC Glucose (mg/dL) 253 H 219 H (75-99) mg/dL Iron 25 L (50-170) ug/dL TIBC 198 L (228-460) ug/dL Ferritin 2677.2 H (10.0-291.0) ng/mL 06/17/17 06/17/17 Range/Units 06:11 11:58 POC Glucose (mg/dL) 114 H 144 H (75-99) mg/dL Iron (50-170) ug/dL TIBC (228-460) ug/dL Ferritin (10.0-291.0) ng/mL Microbiology - Last 24 Hours (Table) 06/16/17 14:06 Blood Culture - Final Blood 06/16/17 14:06 Blood Culture Gram Stain - Preliminary Blood 06/15/17 07:34 Urine Culture - Preliminary Urine,Voided 06/15/17 22:50 Blood Culture Gram Stain - Preliminary Blood Blood Culture - Preliminary Group D Enterococcus 06/15/17 22:50 Blood Culture - Final Blood Assessment and Plan Assessment: #1 generalized weakness secondary to hypotension #2 hypotension secondary to ultrafiltration and antihypertensives #3 end-stage renal disease on hemodialysis #4 elevated troponins cannot completely rule out myocardial injury at this time #5 hypertension, currently hypotensive on therapy #6 coronary artery disease with history of prior CABG and stenting #7 paroxysmal atrial fibrillation #[address] #9 group D enterococcus bacteremia, permacath likely source Plan: From cardiology's perspective, medications were reviewed, we will continue home medications but hold antihypertensive medications if blood pressure is less than 120 systolic.. At this time we will continue medical management, patient is not a candidate for any invasive cardiac testing due to underlying bacteremia. We will follow the patient on an as-needed basis please do not hesitate to contact us with questions. CRATE MAKER note has been reviewed, I agree with a documented findings and plan of care. Patient was seen and examined.
[2017-06-17] MEDS: MORPHINE SULFATE 4 MG/ML SYRINGE IVP PRN ×3 (15:16→23:28)
[2017-06-17 17:04] LABS: Glucose,Whole Blood 199 mg/dL (75-99)
--- NOTE | 2017-06-17 18:31 | PN ---
PROGRESS NOTE DATE OF SERVICE: 06/17/2017 The patient is complaining of some pain in the back of her neck and headache and Tylenol is not helping. Family is at the bedside. Patient's blood culture has come back positive for group D enterococcus. VITAL SIGNS: Temperature 98.9, pulse 70, respiration 18, blood pressure 111/45, O2 saturation 98%. HEENT: Atraumatic, normocephalic. Pupils equal and react to light. Extraocular movements are intact. Buccal mucosa is fair. NECK: Supple. No goiter or lymphadenopathy. JVD is negative. No carotid bruit heard. Lungs are clear to auscultate. No rales, rhonchi, wheezes. Heart is regular rate and rhythm with a soft holosystolic murmur. Abdomen is soft, nontender, nondistended. Bowel sounds positive. EXTREMITIES: No edema, clubbing or cyanosis. NEUROLOGICAL EXAMINATION: Cranial nerves 2 through 12 grossly intact. She is awake, alert, oriented x3. No gross motor or sensory deficit. LABS: CBC, white blood count of 5.9, hemoglobin 9.7, hematocrit 29.9, and platelet count of 86. Chemical profile sodium 139, potassium 3.6, chloride 93, bicarb 31, BUN 29, creatinine 3.3 and glucose 178. ASSESSMENT: 1. Group D enterococcus bacteremia possibly likely PermCath. 2. Atrial fibrillation with rapid ventricular response. 3. End-stage renal disease, hemodialysis. 4. Hypotension possibly iatrogenic, clinically resolved. 5. Weakness and debility secondary to hypotension. 6. Elevated troponin, rule out acute coronary syndrome. Cardiology has been consulted. 7. History of hypertension. 8. History of coronary artery disease. 9. Deep venous thrombosis / gastrointestinal prophylaxis. The patient has undergone 2-D echocardiogram. Heart rate is controlled and Cardizem drip has been discontinued. The patient's medications are being adjusted by Cardiology. The patient is being followed by Nephrology for hemodialysis. Will consult Infectious Disease for enterococcus bacteremia. Await further recommendations from Nephro. Will continue all current medications. We will wait for further recommendations from Infectious Disease as for antibiotic treatment. Patient was started on IV vancomycin, which is discontinued. Await recommendations from ID before starting any antibiotics. MMODL / IJN: [id number] /
[2017-06-17] MEDS: ATORVASTATIN 80 MG TAB PO SCH (21:07)
[2017-06-17 21:11] LABS: Glucose,Whole Blood 185 mg/dL (75-99)
[2017-06-17] MEDS: ZOLPIDEM 10 MG TAB PO PRN (21:18)
--- NOTE | 2017-06-17 22:40 | P.CONS ---
History of Present Illness - Reason for Consult Consult date: 06/17/17 - Chief Complaint Weakness - History of Present Illness Very pleasant 87-year-old female who has multiple medical troubles that includes end-stage renal disease on hemodialysis via a PermCath on the right anterior chest wall. The patient's is pleasant and cooberates her story, but the patient is an excellent historian. The patient relates that over a year ago she's having some difficulty with her fistula in her left arm and she developed a significant cellulitis. At that time a PermCath was applied to the right anterior chest wall from her vascular surgeon who is out of town. She's been maintained on hemodialysis via the PermCath although the dialysis center and her network desktop support specialist have consistently requested for her to only utilize the fistula but the patient refused. She was concerned about the fistula and the discomfort that it caused her. The patient however became ill she developed profound weakness generalized malaise fever. She is on evidence of atrial fibrillation with a rapid ventricular response and required hospitalization. With this treatment she is feeling somewhat better but was not evidence of Enterococcus faecalis bacteremia. There are now multiple positive blood cultures and infectious diseases consultation was requested. The case is discussed with the network desktop support specialist. The patient is feeling slightly better today. She relates that she is quite confused about what she is to do. 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 The patient is very intelligent and has a very supporting . Significant conversations occurred throughout the consult. She has noted she does feel somewhat better today. Review of Systems At admission had profound fatigue and malaise and fever feeling slightly better now. HEENT:Denies headache or acute visual change. Denies sinus or mouth discomforts. Denies neck stiffness or pain. Denies significant oral cavity pain. Denies difficulty on swallowing. Lungs: Denies significant change of shortness of breath, cough, sputum production, or hemoptysis. Cardiovascular: Denies significant change of shortness of breath, chest pain, chest wall pain, orthopnea, dyspnea on exertion, syncope Gastrointestinal:Denies nausea, vomiting, diarrhea, constipation, hematemesis, melena, hematochezia. No no significant change of bowel habit noticed. Musculoskeletal: denies significant myalgias or arthralgias. No new joint swelling. Denies new back pain. Skin: Denies new rash or lesions. No new ulcers or wounds are related.. Neuro: Denies headache or visual change. Denies any new onset weakness or difficulty with ambulation. Denies falls or seizures. Psychiatric:Denies anxiety or depression. Endocrine: Admission had profound fatigue is doing slightly better weight has been stable does not have difficulty with her dry weight. Past Medical History Past Medical History: Atrial Fibrillation, Heart Failure, CVA/TIA, Diabetes Mellitus, GERD/Reflux, Hypertension, Renal Disease Additional Past Medical History / Comment(s): dialysis, leaky mitral valve, CHF History of Any Multi-Drug Resistant Organisms: None Reported Past Surgical History: Coronary Bypass/CABG, Heart Catheterization With Stent, Pacemaker Additional Past Surgical History / Comment(s): hx GI Bleed, several colonoscopies Past Anesthesia/Blood Transfusion Reactions: No Reported Reaction Date of Last Stent Placement:: n/a Type of Cardiac Device: Permanent Pacemaker Device Placement Date:: 1999 Past Psychological History: No Psychological Hx Reported Additional Psychological History / Comment(s): to her very supportive . 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 No travel history. Winter in [place]. No animals in the home. No tobacco or alcohol use Smoking Status: Former smoker Past Alcohol Use History: None Reported Past Drug Use History: None Reported - Past Family History Father Family Medical History: Coronary Artery Disease (CAD) Brother(s) Family Medical History: Coronary Artery Disease (CAD) Sister(s) Family Medical History: CVA/TIA Medications and Allergies Home Medications and Allergies Comment(s): Current Medications Acetaminophen (Tylenol Tab) 650 mg PO Q6HR PRN PRN Reason: Fever and/ or Mild Pain Last Admin: 06/17/17 06:24 Dose: 650 mg Amiodarone HCl (Cordarone) 200 mg PO DAILY [facility] Apixaban (Eliquis) 2.5 mg PO BID@0800,2200 [facility] Last Admin: 06/17/17 21:07 Dose: 2.5 mg Aspirin (Aspirin) 325 mg PO DAILY [facility] Last Admin: 06/17/17 08:36 Dose: 325 mg Atorvastatin Calcium (Lipitor) 80 mg PO HS [facility] Last Admin: 06/17/17 21:07 Dose: 80 mg Calcium Acetate (Phoslo) 667 mg PO TID-W/MEALS [facility] Last Admin: 06/17/17 18:28 Dose: 667 mg Darbepoetin Liborio (Aranesp) 40 mcg SQ Q7D [facility] Last Admin: 06/17/17 12:17 Dose: 40 mcg Fentanyl (Duragesic 50mcg/Hr Patch) 1 patch TRANSDERM Q72H [facility] Last Admin: 06/17/17 21:10 Dose: 1 patch Insulin Aspart (Novolog) 0 unit SQ ACHS [facility] PRN Reason: Protocol Last Admin: 06/17/17 21:10 Dose: 2 unit Insulin Detemir (Levemir) 20 unit SQ QAM [facility] Last Admin: 06/17/17 08:36 Dose: 20 unit Isosorbide Mononitrate (Imdur) 15 mg PO QAM [facility] Losartan Potassium (Cozaar) 50 mg PO DAILY [facility] Metoprolol Succinate (Toprol Xl) 50 mg PO QAM [facility] Miscellaneous Information (Pharmacy To Dose Iv Vancomycin) 1 each MISCELLANE DIRECTED PRN PRN Reason: Per Protocol Morphine Sulfate (Morphine Sulfate (Inj)) 3 mg IVP Q4HR PRN PRN Reason: Pain Last Admin: 06/17/17 19:28 Dose: 3 mg Nitroglycerin (Nitrostat) 0.4 mg SUBLINGUAL Q5M PRN PRN Reason: Chest Pain Zolpidem Tartrate (Ambien) 10 mg PO HS PRN PRN Reason: Insomnia Last Admin: 06/17/17 21:18 Dose: 10 mg Home Medications Medication Instructions Recorded Confirmed Type Amiodarone [Cordarone] 200 mg PO DAILY 12/03/16 06/15/17 History Atorvastatin [Lipitor] 80 mg PO HS 12/03/16 06/15/17 History Calcium Acetate [PhosLo] 667 mg PO TID@0800,1400,1800 12/03/16 06/15/17 History Folic Acid-Vit B Complex-Vit C 1 mg PO HS 12/03/16 06/15/17 History [Nephrocaps] Furosemide [Lasix] 80 mg PO BID@0800,1400 12/03/16 06/15/17 History INSULIN LISPRO (humaLOG) [humaLOG] See Protocol SQ BID 12/03/16 06/15/17 History Insulin Glargine [Lantus] 20 unit SQ QAM 12/03/16 06/15/17 History Isosorbide Mononitrate ER [Imdur] 15 mg PO QAM 12/03/16 06/15/17 History Metoprolol Succinate (ER) [Toprol 50 mg PO QAM 12/03/16 06/15/17 History XL] Omeprazole 40 mg PO BID@0800,1800 12/03/16 06/15/17 History fentaNYL 50MCG/HR PATCH [Duragesic 1 patch TRANSDERM Q72H 12/03/16 06/15/17 History 50MCG/HR] Apixaban [Eliquis] 2.5 mg PO BID@0800,2200 06/15/17 06/15/17 History Levothyroxine Sodium [Synthroid] 50 mcg PO DAILY 06/15/17 06/15/17 History Losartan Potassium 50 mg PO DAILY 06/15/17 06/15/17 History Allergies Allergy/AdvReac Type Severity Reaction Status Date / Time Iodinated Contrast- Oral and AdvReac Severe Compromised Verified 06/15/17 22:44 IV Dye Kidney [Iodinated Contrast Media - Function/Dialysis Oral and] Physical Exam Vitals: Vital Signs Temp Pulse Resp BP BP Pulse Ox 06/17/17 16:05 99 06/17/17 16:00 97.8 F 70 18 135/57 99 06/17/17 12:00 98.4 F 70 18 143/57 98 06/17/17 08:00 98.1 F 70 18 111/45 98 06/17/17 04:00 97.4 F L 72 16 130/60 98 06/17/17 00:00 71 16 97/40 98 Intake and Output 06/17/17 06/17/17 06/17/17 06:59 14:59 22:59 Intake Total 300 360 240 Balance 300 360 240 Intake: Oral 300 360 240 Other: # Voids 1 3 Weight 71.3 kg Patient is in no acute distress HEENT: Anicteric conjunctiva are pink and moist nasal mucosa grossly intact without significant lesions, there is no thrush. Neck: The neck is supple without significant lymphadenopathy or thyromegaly. Lungs: Good bilateral air entry without significant crackles or wheezing. There is no significant bronchial sounds. There is no egophony or dullness. Heart: Irregularly irregular without audible S1 and S2 no S3 soft S4 There is no significant murmur click or rub, PMI was nondisplaced. Abdomen: Positive bowel sounds soft and nontender without palpable masses or organomegaly. There was no guarding or rebound. Extremities: The upper extremities have excellent pulses they are symmetric, no significant petechiae or telangiectasia. This shows a left arm has an easily palpated thrill and is nontender. No splinter hemorrhages were noted. The lower extremities have evidence of minimal edema. No significant lesions or ulcers in the lower extremities Neuro: Awake alert oriented to person place and time. There are no acute new gross focal sensory motor deficits. Results CBC & Chem 7: 06/15/17 22:50 06/15/17 22:50 Labs: Abnormal Lab Results - Last 24 Hours (Table) 06/16/17 06/17/17 06/17/17 Range/Units 10:36 06:11 11:58 POC Glucose (mg/dL) 114 H 144 H (75-99) mg/dL Iron 25 L (50-170) ug/dL TIBC 198 L (228-460) ug/dL Ferritin 2677.2 H (10.0-291.0) ng/mL 06/17/17 06/17/17 Range/Units 17:01 21:07 POC Glucose (mg/dL) 199 H 185 H (75-99) mg/dL Iron (50-170) ug/dL TIBC (228-460) ug/dL Ferritin (10.0-291.0) ng/mL Microbiology - Last 24 Hours (Table) 06/16/17 14:06 Blood Culture Gram Stain - Preliminary Blood Blood Culture - Preliminary Group D Enterococcus 06/16/17 14:06 Blood Culture - Final Blood 06/15/17 07:34 Urine Culture - Preliminary Urine,Voided 06/15/17 22:50 Blood Culture Gram Stain - Preliminary Blood Blood Culture - Preliminary Group D Enterococcus Laboratory Results WBC 5.9 k/uL (3.8-10.6) 06/15/17 22:50 RBC 2.72 m/uL (3.80-5.40) L 06/15/17 22:50 Hgb 9.7 gm/dL (11.4-16.0) L 06/15/17 22:50 Hct 29.9 % (34.0-46.0) L 06/15/17 22:50 MCV 110.2 fL (80.0-100.0) H 06/15/17 22:50 MCH 35.5 pg (25.0-35.0) H 06/15/17 22:50 MCHC 32.2 g/dL (31.0-37.0) 06/15/17 22:50 RDW 16.2 % (11.5-15.5) H 06/15/17 22:50 Plt Count 86 k/uL (150-450) L 06/15/17 22:50 Neutrophils % 87 % 06/15/17 22:50 Lymphocytes % 5 % 06/15/17 22:50 Monocytes % 6 % 06/15/17 22:50 Eosinophils % 0 % 06/15/17 22:50 Basophils % 0 % 06/15/17 22:50 Neutrophils # 5.1 k/uL (1.3-7.7) 06/15/17 22:50 Lymphocytes # 0.3 k/uL (1.0-4.8) L 06/15/17 22:50 Monocytes # 0.4 k/uL (0-1.0) 06/15/17 22:50 Eosinophils # 0.0 k/uL (0-0.7) 06/15/17 22:50 Basophils # 0.0 k/uL (0-0.2) 06/15/17 22:50 Polychromasia Present 06/15/17 22:50 Anisocytosis Slight 06/15/17 22:50 Macrocytosis Marked 06/15/17 22:50 PT 11.2 sec (9.0-12.0) 06/15/17 22:50 INR 1.2 (<1.2) H 06/15/17 22:50 APTT 23.3 sec (22.0-30.0) 06/15/17 22:50 Sodium 139 mmol/L (137-145) 06/15/17 22:50 Potassium 3.6 mmol/L (3.5-5.1) 06/15/17 22:50 Chloride 93 mmol/L (98-107) L 06/15/17 22:50 Carbon Dioxide 31 mmol/L (22-30) H 06/15/17 22:50 Anion Gap 15 mmol/L 06/15/17 22:50 BUN 29 mg/dL (7-17) H 06/15/17 22:50 Creatinine 3.30 mg/dL (0.52-1.04) H 06/15/17 22:50 Est GFR (MDRD) Af Amer 16 (>60 ml/min/1.73 sqM) 06/15/17 22:50 Est GFR (MDRD) Non-Af 13 (>60 ml/min/1.73 sqM) 06/15/17 22:50 Glucose 178 mg/dL (74-99) H 06/15/17 22:50 POC Glucose (mg/dL) 185 mg/dL (75-99) H 06/17/17 21:07 POC Glu Pediatric Cardiologist Salazar Ford 06/17/17 21:07 Calcium 9.2 mg/dL (8.4-10.2) 06/15/17 22:50 Phosphorus 3.4 mg/dL (2.5-4.5) 06/15/17 22:50 Magnesium 2.0 mg/dL (1.6-2.3) 06/15/17 22:50 Iron 25 ug/dL (50-170) L 06/16/17 10:36 TIBC 198 ug/dL (228-460) L 06/16/17 10:36 Iron Saturation 12.63 (12.00-45.00) 06/16/17 10:36 Ferritin 2677.2 ng/mL (10.0-291.0) H 06/16/17 10:36 Total Bilirubin 0.5 mg/dL (0.2-1.3) 06/15/17 22:50 AST 191 U/L (14-36) H 06/15/17 22:50 ALT 139 U/L (9-52) H 06/15/17 22:50 Alkaline Phosphatase 59 U/L (38-126) 06/15/17 22:50 Total Creatine Kinase 150 U/L (30-135) H 06/16/17 10:36 CK-MB (CK-2) 3.0 ng/mL (0.0-2.4) H* 06/16/17 10:36 CK-MB (CK-2) Rel Index 2.0 06/16/17 10:36 Troponin I 0.935 ng/mL (0.000-0.034) H* 06/16/17 10:36 Total Protein 5.9 g/dL (6.3-8.2) L 06/15/17 22:50 Albumin 3.6 g/dL (3.5-5.0) 06/15/17 22:50 Triglycerides 103 mg/dL (<150) 06/17/17 05:44 Cholesterol 119 mg/dL (<200) 06/17/17 05:44 LDL Cholesterol, Calc 52 mg/dL (0-99) 06/17/17 05:44 HDL Cholesterol 46 mg/dL (40-60) 06/17/17 05:44 Urine Color Yellow 06/15/17 07:34 Urine Appearance Cloudy (Clear) H 06/15/17 07:34 Urine pH 5.0 (5.0-8.0) 06/15/17 07:34 Ur Specific [place] 1.021 (1.001-1.035) 06/15/17 07:34 Urine Protein Trace (Negative) H 06/15/17 07:34 Urine Glucose (UA) Negative (Negative) 06/15/17 07:34 Urine Ketones Negative (Negative) 06/15/17 07:34 Urine Blood Trace (Negative) H 06/15/17 07:34 Urine Nitrite Negative (Negative) 06/15/17 07:34 Urine Bilirubin 1+ (Negative) H 06/15/17 07:34 Urine Urobilinogen 2.0 mg/dL (<2.0) 06/15/17 07:34 Ur Leukocyte Esterase Large (Negative) H 06/15/17 07:34 Urine RBC 10 /hpf (0-5) H 06/15/17 07:34 Urine WBC 52 /hpf (0-5) H 06/15/17 07:34 Urine WBC Clumps Occasional /hpf (None) H 06/15/17 07:34 Ur Squamous Epith Cells 20 /hpf (0-4) H 06/15/17 07:34 Urine Bacteria Occasional /hpf (None) H 06/15/17 07:34 Urine Mucus Rare /hpf (None) H 06/15/17 07:34 Microbiology 06/16/17 14:06 Blood Blood Culture Gram Stain - Preliminary 06/16/17 14:06 Blood Blood Culture - Preliminary Group D Enterococcus 06/16/17 14:06 Blood Blood Culture - Final 06/15/17 07:34 Urine,Voided Urine Culture - Preliminary 06/15/17 22:50 Blood Blood Culture Gram Stain - Preliminary 06/15/17 22:50 Blood Blood Culture - Preliminary Group D Enterococcus 06/15/17 22:50 Blood Blood Culture - Final Assessment and Plan (1) End-stage renal disease on hemodialysis Current Visit: Yes Status: Acute Code(s): N18.6 - END STAGE RENAL DISEASE; Z99.2 - DEPENDENCE ON RENAL DIALYSIS SNOMED Code(s): 727932916 (2) Weakness Current Visit: Yes Status: Acute Code(s): R53.1 - WEAKNESS SNOMED Code(s) : 46558831 (3) Atrial fibrillation with rapid ventricular response Current Visit: Yes Status: Acute Code(s): I48.91 - UNSPECIFIED ATRIAL FIBRILLATION SNOMED Code(s): 486151999643393 (4) Enterococcal bacteremia Narrative/Plan: 87-year-old female has multiple medical troubles that include coronary disease diabetes mellitus type 2 and has end-stage renal disease on hemodialysis. Physical fistula to her left arm relates that over a year ago developed difficulty with the cellulitis to her arm and a PermCath was applied. She's insisted on utilization of a PermCath since that point in time and that it is not tender like her arm is and has had no troubles. However as she has been instructed from the dialysis center PermCath access is difficult and is often fraught with infection. She now is evidence of enterococcus bacteremia strictly related to infection from her PermCath. This is discussed with the network desktop support specialist and the vascular surgeon. The patient will need the PermCath to be removed. She is very worried about this process in that last time she had a catheter removed who was very painful and she thought she was going to when it was removed. This is related to the vascular surgeon that she will need some type of sedation and local pain control to allow this to be removed. Because of all these issues the patient was asked contemplating whether she would have further hemodialysis. She over does relate up in the time that she became acutely ill she was active and interactive with her . Now that she's feeling better she seems to be reinvigorated about the process of continuing dialysis. Given her excellent mental status and her strong family support continue dialysis would be the most reasonable approach at this point in time. Certainly if she has any significant decline of her status then she may contemplate discontinuing dialysis at that time. As noted will have the current dialysis catheter removed. She will then continue antibiotic therapy at dialysis likely with vancomycin given the current data. Current Visit: Yes Status: Acute Code(s): R78.81 - BACTEREMIA; B95.2 - ENTEROCOCCUS THE CAUSE OF DISEASES CLASSIFIED ELSEWHERE SNOMED Code(s): 390673229433
[2017-06-18 06:04] LABS: HCT 29.6 % (34.0-46.0); Hypochromasia Slight; MCH 34.4 pg (25.0-35.0); MCHC 30.4 g/dL (31.0-37.0); Macrocytosis Marked; Mean Platelet Volume 8.4; RBC 2.62 m/uL (3.80-5.40); RDW 15.7 % (11.5-15.5); WBC 3.8 k/uL (3.8-10.6)
[2017-06-18 06:10] LABS: Platelet Count 99 k/uL (150-450)
[2017-06-18 06:10] LABS: Glucose,Whole Blood 119 mg/dL (75-99)
[2017-06-18 06:13] LABS: Calcium 8.3 mg/dL (8.4-10.2); Potassium 4.2 mmol/L (3.5-5.1)
[2017-06-18 06:18] LABS: Vancomycin,Random 14.2 ug/mL
[2017-06-18] MEDS: INSULIN ASPART 100 UNIT/ML 1 ML 10 ML VIAL SQ SCH ×4 (06:22→22:03)
[2017-06-18] MEDS: MORPHINE SULFATE 4 MG/ML SYRINGE IVP PRN ×4 (06:23→21:59)
[2017-06-18] MEDS: CALCIUM ACETATE 667 MG CAP PO SCH ×3 (06:23→17:13)
[2017-06-18] MEDS ORDERED: VANCOMYCIN 1,250 MG in SODIUM CHLORIDE 0.9% 250 ML IVPB ONE (08:00)
[2017-06-18 08:36] LABS: Basophils # (M) 0.08 k/uL (0-0.2); Eosinophils # (M) 0.15 k/uL (0-0.7); Lymphocytes # (M) 0.57 k/uL (1.0-4.8); Monocytes # (M) 0.61 k/uL (0-1.0); Neutrophils # (M) 2.39 k/uL (1.3-7.7); Neutrophils % (M) 63 %; Nucleated Red Blood Cells 0 /100 WBC (0-0); Total Cells Counted 100
[2017-06-18] MEDS ORDERED: MIDAZOLAM 2 MG/2 ML VIAL IV STA (08:36)
[2017-06-18] MEDS: APIXABAN 2.5 MG TABLET PO SCH (09:00)
[2017-06-18] MEDS: ASPIRIN 325 MG TAB PO SCH (09:06)
[2017-06-18] MEDS: AMIODARONE 200 MG TAB PO SCH (09:06)
[2017-06-18] MEDS: ISOSORBIDE MONONITRATE ER 15 MG TAB PO SCH (09:07)
[2017-06-18] MEDS: INSULIN DETEMIR 100 UNIT/ML 10 ML VIAL SQ SCH (09:07)
[2017-06-18] MEDS: METOPROLOL SUCCINATE (ER) 50 MG TAB.ER.24H PO SCH (09:07)
[2017-06-18] MEDS: LOSARTAN 50 MG TAB PO SCH (09:07)
--- NOTE | 2017-06-18 10:04 | P.PN ---
Subjective Patient is seen in follow-up for end-stage renal disease. She is maintained on hemodialysis on a Monday schedule via a permacath. Patient does have a left upper extremity AV fistula which she has been refusing to use as she had cellulitis in the past and doesn't want to be poked regularly. Patient presented with hypotension which is now resolved. She admits to soreness in her neck. Her blood cultures are positive for group D enterococcus. Vital signs are stable. General: The patient appeared well nourished and normally developed. HEENT: Head exam is unremarkable. Neck is without jugular venous distension. LUNGS: Lungs are clear to auscultation and percussion. Breath sounds decreased. HEART: Rate and Rhythm are regular. First and second heart sounds normal. No murmurs, rubs or gallops. ABDOMEN: Abdominal exam reveals normal bowel sounds. Non-tender and non- distended. No evidence of peritonitis. EXTREMITITES: No clubbing, cyanosis, or edema. Objective - Vital Signs Vital signs: Vital Signs Temp 97.6 F 06/18/17 08:00 Pulse 71 06/18/17 08:00 Resp 18 06/18/17 08:00 BP 166/70 06/18/17 08:00 Pulse Ox 90 L 06/18/17 08:00 Intake & Output 06/17/17 06/18/17 06/18/17 18:59 06:59 18:59 Intake Total 600 Balance 600 Weight 71 kg Intake: Oral 600 Other: # Voids 3 0 - Labs CBC & Chem 7: 06/18/17 05:19 06/18/17 05:19 Labs: Abnormal Lab Results - Last 24 Hours (Table) 06/17/17 06/17/17 06/17/17 Range/Units 11:58 17:01 21:07 RBC (3.80-5.40) m/uL Hgb (11.4-16.0) gm/dL Hct (34.0-46.0) % MCV (80.0-100.0) fL MCHC (31.0-37.0) g/dL RDW (11.5-15.5) % Plt Count (150-450) k/uL Lymphocytes # (Manual) (1.0-4.8) k/uL Sodium (137-145) mmol/L BUN (7-17) mg/dL Creatinine (0.52-1.04) mg/dL Glucose (74-99) mg/dL POC Glucose (mg/dL) 144 H 199 H 185 H (75-99) mg/dL Calcium (8.4-10.2) mg/dL 06/18/17 06/18/17 06/18/17 Range/Units 05:19 05:19 06:08 RBC 2.62 L (3.80-5.40) m/uL Hgb 9.0 L (11.4-16.0) gm/dL Hct 29.6 L (34.0-46.0) % MCV 113.0 H (80.0-100.0) fL MCHC 30.4 L (31.0-37.0) g/dL RDW 15.7 H (11.5-15.5) % Plt Count 99 L (150-450) k/uL Lymphocytes # (Manual) 0.57 L (1.0-4.8) k/uL Sodium 136 L (137-145) mmol/L BUN 41 H (7-17) mg/dL Creatinine 3.20 H (0.52-1.04) mg/dL Glucose 129 H (74-99) mg/dL POC Glucose (mg/dL) 119 H (75-99) mg/dL Calcium 8.3 L (8.4-10.2) mg/dL Microbiology - Last 24 Hours (Table) 06/17/17 11:10 Blood Culture - Preliminary Blood 06/17/17 05:44 Blood Culture - Preliminary Blood 06/15/17 07:34 Urine Culture - Preliminary Urine,Voided Gram Neg Bacilli 06/15/17 22:50 Blood Culture Gram Stain - Final Blood Blood Culture - Final Enterococcus faecalis 06/16/17 14:06 Blood Culture Gram Stain - Preliminary Blood Blood Culture - Preliminary Group D Enterococcus 06/16/17 14:06 Blood Culture - Final Blood Assessment and Plan Plan: Assessment: #1. End-stage renal disease maintained on hemodialysis on a Monday schedule via permacath. Patient agreeable to use the AV fistula. #2. Generalized weakness related to hypotension. Improved. #3. Hypotension related to antihypertensives as well as ultrafiltration. Orthostatics negative. Also component of bacteremia. Blood pressure stable. #4. Chronic kidney disease mineral bone disease maintained on PhosLo. #5. Hypertension with chronic kidney disease. Currently controlled. #6. Insulin-dependent diabetes mellitus. #7. History of A. fib maintained on Eliquis. #8. Anemia of chronic kidney disease. Iron deficiency noted. #9. Group D enterococcus bacteremia with source being the permacath. Plan: Continue to hold home antihypertensives for systolic blood pressure less than 120. Maintain Aranesp. I will hold off on IV iron due to bacteremia. Antibiotics per infectious disease recommendations. Monitor vancomycin levels - target to 15. Permacath to be discontinued on Monday as she is currently on anticoagulation. Patient is agreeable to use the AVF. Next dialysis on Monday. Add Flexeril once daily as needed.
--- NOTE | 2017-06-18 11:12 | CONS ---
CONSULTATION This is a 87-year-old female, she has been admitted with bacteremia. She has Enterococcus faecalis and gram-negative bacilli. The patient is on IV antibiotics under care of infectious disease. The patient had dialysis catheter placed in [place] and also she had a left upper arm Brownfield-Dale graft placed in the past which got infected and which has not been used for some time. I was called in for removal of the dialysis catheter. The patient has a history of atrial fibrillation on Eliquis. MEDICAL HISTORY: Patient has history of atrial fibrillation, diabetes mellitus, congestive heart failure, hypertension, coronary artery disease. PHYSICAL EXAMINATION: NECK: Supple. The patient has a right IJ catheter in the chest wall. CHEST: Clear to auscultation. First and 2nd sounds present. ABDOMEN: Soft. Femoral pulses are present. Left upper arm has a Brownfield-Dale graft, has a thrill present. Radial pulses present. Peripheral pulses palpable. PLAN: Removal of the dialysis catheter. Eliquis has been stopped. We will hold the Coumadin and we will take the catheter out within 48 hours. The patient will have dialysis today. We will arrange for removal of catheter and follow with you. MMODL / IJN: [id number] /
[2017-06-18 11:55] LABS: Glucose,Whole Blood 141 mg/dL (75-99)
[2017-06-18] MEDS: CYCLOBENZAPRINE 5 MG TAB PO PRN ×2 (12:50→23:13)
--- NOTE | 2017-06-18 16:53 | P.PN ---
Subjective Progress Note Date: 06/18/17 Principal diagnosis: Very pleasant 87-year-old female who has multiple medical troubles that includes end-stage renal disease on hemodialysis via a PermCath on the right anterior chest wall. The patient's is pleasant and cooberates her story, but the patient is an excellent historian. The patient relates that over a year ago she's having some difficulty with her fistula in her left arm and she developed a significant cellulitis. At that time a PermCath was applied to the right anterior chest wall from her vascular surgeon who is out of town. She's been maintained on hemodialysis via the PermCath although the dialysis center and her dinkey engine firer have consistently requested for her to only utilize the fistula but the patient refused. She was concerned about the fistula and the discomfort that it caused her. The patient however became ill she developed profound weakness generalized malaise fever. She is on evidence of atrial fibrillation with a rapid ventricular response and required hospitalization. With this treatment she is feeling somewhat better but was not evidence of Enterococcus faecalis bacteremia. There are now multiple positive blood cultures and infectious diseases consultation was requested. The case is discussed with the dinkey engine firer. The patient is feeling slightly better today. She relates that she is quite confused about what she is to do. 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 The patient is very intelligent and has a very supporting . Significant conversations occurred throughout the consult. She has noted she does feel somewhat better today. 06/18/2017 patient feels better today. She's had some visitors. She will have her catheter removed on Monday once her blood thinners have been out of her system for 2 days. Objective - Vital Signs Vital signs: Vital Signs Temp 98.0 F 06/18/17 12:00 Pulse 70 06/18/17 12:00 Resp 18 06/18/17 12:00 BP 97/45 06/18/17 12:00 Pulse Ox 94 L 06/18/17 12:00 Intake & Output 06/17/17 06/18/17 06/18/17 18:59 06:59 18:59 Intake Total 600 360 Balance 600 360 Weight 71 kg Intake: Oral 600 360 Other: # Voids 3 0 0 - Exam Patient is in no acute distress HEENT: Anicteric conjunctiva are pink and moist nasal mucosa grossly intact without significant lesions, there is no thrush. Neck: The neck is supple without significant lymphadenopathy or thyromegaly. Lungs: Good bilateral air entry without significant crackles or wheezing. There is no significant bronchial sounds. There is no egophony or dullness. Heart: Irregularly irregular without audible S1 and S2 no S3 soft S4 There is no significant murmur click or rub, PMI was nondisplaced. Abdomen: Positive bowel sounds soft and nontender without palpable masses or organomegaly. There was no guarding or rebound. Extremities: The upper extremities have excellent pulses they are symmetric, no significant petechiae or telangiectasia. This shows a left arm has an easily palpated thrill and is nontender. No splinter hemorrhages were noted. The lower extremities have evidence of minimal edema. No significant lesions or ulcers in the lower extremities Neuro: Awake alert oriented to person place and time. There are no acute new gross focal sensory motor deficits. - Labs CBC & Chem 7: 06/18/17 05:19 06/18/17 05:19 Labs: Abnormal Lab Results - Last 24 Hours (Table) 06/17/17 06/17/17 06/18/17 Range/Units 17:01 21:07 05:19 RBC (3.80-5.40) m/uL Hgb (11.4-16.0) gm/dL Hct (34.0-46.0) % MCV (80.0-100.0) fL MCHC (31.0-37.0) g/dL RDW (11.5-15.5) % Plt Count (150-450) k/uL Lymphocytes # (Manual) (1.0-4.8) k/uL Sodium 136 L (137-145) mmol/L BUN 41 H (7-17) mg/dL Creatinine 3.20 H (0.52-1.04) mg/dL Glucose 129 H (74-99) mg/dL POC Glucose (mg/dL) 199 H 185 H (75-99) mg/dL Calcium 8.3 L (8.4-10.2) mg/dL 06/18/17 06/18/17 06/18/17 Range/Units 05:19 06:08 11:52 RBC 2.62 L (3.80-5.40) m/uL Hgb 9.0 L (11.4-16.0) gm/dL Hct 29.6 L (34.0-46.0) % MCV 113.0 H (80.0-100.0) fL MCHC 30.4 L (31.0-37.0) g/dL RDW 15.7 H (11.5-15.5) % Plt Count 99 L (150-450) k/uL Lymphocytes # (Manual) 0.57 L (1.0-4.8) k/uL Sodium (137-145) mmol/L BUN (7-17) mg/dL Creatinine (0.52-1.04) mg/dL Glucose (74-99) mg/dL POC Glucose (mg/dL) 119 H 141 H (75-99) mg/dL Calcium (8.4-10.2) mg/dL Microbiology - Last 24 Hours (Table) 06/16/17 14:06 Blood Culture Gram Stain - Final Blood Blood Culture - Final Enterococcus faecalis 06/17/17 11:10 Blood Culture Gram Stain - Preliminary Blood Blood Culture - Preliminary Group D Enterococcus 06/17/17 05:44 Blood Culture Gram Stain - Preliminary Blood Blood Culture - Preliminary Group D Enterococcus 06/17/17 11:10 Blood Culture - Preliminary Blood 06/17/17 05:44 Blood Culture - Preliminary Blood 06/15/17 07:34 Urine Culture - Preliminary Urine,Voided Gram Neg Bacilli 06/15/17 22:50 Blood Culture Gram Stain - Final Blood Blood Culture - Final Enterococcus faecalis Laboratory Results WBC 3.8 k/uL (3.8-10.6) 06/18/17 05:19 RBC 2.62 m/uL (3.80-5.40) L 06/18/17 05:19 Hgb 9.0 gm/dL (11.4-16.0) L 06/18/17 05:19 Hct 29.6 % (34.0-46.0) L 06/18/17 05:19 MCV 113.0 fL (80.0-100.0) H 06/18/17 05:19 MCH 34.4 pg (25.0-35.0) 06/18/17 05:19 MCHC 30.4 g/dL (31.0-37.0) L 06/18/17 05:19 RDW 15.7 % (11.5-15.5) H 06/18/17 05:19 Plt Count 99 k/uL (150-450) L 06/18/17 05:19 Neutrophils % 87 % 06/15/17 22:50 Neutrophils % (Manual) 63 % 06/18/17 05:19 Lymphocytes % 5 % 06/15/17 22:50 Lymphocytes % (Manual) 15 % 06/18/17 05:19 Monocytes % 6 % 06/15/17 22:50 Monocytes % (Manual) 16 % 06/18/17 05:19 Eosinophils % 0 % 06/15/17 22:50 Eosinophils % (Manual) 4 % 06/18/17 05:19 Basophils % 0 % 06/15/17 22:50 Basophils % (Manual) 2 % 06/18/17 05:19 Neutrophils # 5.1 k/uL (1.3-7.7) 06/15/17 22:50 Neutrophils # (Manual) 2.39 k/uL (1.3-7.7) 06/18/17 05:19 Lymphocytes # 0.3 k/uL (1.0-4.8) L 06/15/17 22:50 Lymphocytes # (Manual) 0.57 k/uL (1.0-4.8) L 06/18/17 05:19 Monocytes # 0.4 k/uL (0-1.0) 06/15/17 22:50 Monocytes # (Manual) 0.61 k/uL (0-1.0) 06/18/17 05:19 Eosinophils # 0.0 k/uL (0-0.7) 06/15/17 22:50 Eosinophils # (Manual) 0.15 k/uL (0-0.7) 06/18/17 05:19 Basophils # 0.0 k/uL (0-0.2) 06/15/17 22:50 Basophils # (Manual) 0.08 k/uL (0-0.2) 06/18/17 05:19 Nucleated RBCs 0 /100 WBC (0-0) 06/18/17 05:19 Manual Slide Review Performed 06/18/17 05:19 Polychromasia Present 06/15/17 22:50 Hypochromasia Slight 06/18/17 05:19 Anisocytosis Slight 06/15/17 22:50 Macrocytosis Marked 06/18/17 05:19 PT 11.2 sec (9.0-12.0) 06/15/17 22:50 INR 1.2 (<1.2) H 06/15/17 22:50 APTT 23.3 sec (22.0-30.0) 06/15/17 22:50 Sodium 136 mmol/L (137-145) L 06/18/17 05:19 Potassium 4.2 mmol/L (3.5-5.1) 06/18/17 05:19 Chloride 101 mmol/L (98-107) 06/18/17 05:19 Carbon Dioxide 26 mmol/L (22-30) 06/18/17 05:19 Anion Gap 9 mmol/L 06/18/17 05:19 BUN 41 mg/dL (7-17) H 06/18/17 05:19 Creatinine 3.20 mg/dL (0.52-1.04) H 06/18/17 05:19 Est GFR (MDRD) Af Amer 17 (>60 ml/min/1.73 sqM) 06/18/17 05:19 Est GFR (MDRD) Non-Af 14 (>60 ml/min/1.73 sqM) 06/18/17 05:19 Glucose 129 mg/dL (74-99) H 06/18/17 05:19 POC Glucose (mg/dL) 141 mg/dL (75-99) H 06/18/17 11:52 POC Glu Technical Assoc ID Sushma Laughlin 06/18/17 11:52 Calcium 8.3 mg/dL (8.4-10.2) L 06/18/17 05:19 Phosphorus 3.4 mg/dL (2.5-4.5) 06/15/17 22:50 Magnesium 2.0 mg/dL (1.6-2.3) 06/15/17 22:50 Iron 25 ug/dL (50-170) L 06/16/17 10:36 TIBC 198 ug/dL (228-460) L 06/16/17 10:36 Iron Saturation 12.63 (12.00-45.00) 06/16/17 10:36 Ferritin 2677.2 ng/mL (10.0-291.0) H 06/16/17 10:36 Total Bilirubin 0.5 mg/dL (0.2-1.3) 06/15/17 22:50 AST 191 U/L (14-36) H 06/15/17 22:50 ALT 139 U/L (9-52) H 06/15/17 22:50 Alkaline Phosphatase 59 U/L (38-126) 06/15/17 22:50 Total Creatine Kinase 150 U/L (30-135) H 06/16/17 10:36 CK-MB (CK-2) 3.0 ng/mL (0.0-2.4) H* 06/16/17 10:36 CK-MB (CK-2) Rel Index 2.0 06/16/17 10:36 Troponin I 0.935 ng/mL (0.000-0.034) H* 06/16/17 10:36 Total Protein 5.9 g/dL (6.3-8.2) L 06/15/17 22:50 Albumin 3.6 g/dL (3.5-5.0) 06/15/17 22:50 Triglycerides 103 mg/dL (<150) 06/17/17 05:44 Cholesterol 119 mg/dL (<200) 06/17/17 05:44 LDL Cholesterol, Calc 52 mg/dL (0-99) 06/17/17 05:44 HDL Cholesterol 46 mg/dL (40-60) 06/17/17 05:44 Urine Color Yellow 06/15/17 07:34 Urine Appearance Cloudy (Clear) H 06/15/17 07:34 Urine pH 5.0 (5.0-8.0) 06/15/17 07:34 Ur Specific L[place] 1.021 (1.001-1.035) 06/15/17 07:34 Urine Protein Trace (Negative) H 06/15/17 07:34 Urine Glucose (UA) Negative (Negative) 06/15/17 07:34 Urine Ketones Negative (Negative) 06/15/17 07:34 Urine Blood Trace (Negative) H 06/15/17 07:34 Urine Nitrite Negative (Negative) 06/15/17 07:34 Urine Bilirubin 1+ (Negative) H 06/15/17 07:34 Urine Urobilinogen 2.0 mg/dL (<2.0) 06/15/17 07:34 Ur Leukocyte Esterase Large (Negative) H 06/15/17 07:34 Urine RBC 10 /hpf (0-5) H 06/15/17 07:34 Urine WBC 52 /hpf (0-5) H 06/15/17 07:34 Urine WBC Clumps Occasional /hpf (None) H 06/15/17 07:34 Ur Squamous Epith Cells 20 /hpf (0-4) H 06/15/17 07:34 Urine Bacteria Occasional /hpf (None) H 06/15/17 07:34 Urine Mucus Rare /hpf (None) H 06/15/17 07:34 Random Vancomycin 14.2 ug/mL 06/18/17 05:19 Microbiology 06/16/17 14:06 Blood Blood Culture Gram Stain - Final 06/16/17 14:06 Blood Blood Culture - Final Enterococcus faecalis 06/17/17 11:10 Blood Blood Culture Gram Stain - Preliminary 06/17/17 11:10 Blood Blood Culture - Preliminary Group D Enterococcus 06/17/17 05:44 Blood Blood Culture Gram Stain - Preliminary 06/17/17 05:44 Blood Blood Culture - Preliminary Group D Enterococcus 06/17/17 11:10 Blood Blood Culture - Preliminary 06/17/17 05:44 Blood Blood Culture - Preliminary 06/15/17 07:34 Urine,Voided Urine Culture - Preliminary Gram Neg Bacilli 06/15/17 22:50 Blood Blood Culture Gram Stain - Final 06/15/17 22:50 Blood Blood Culture - Final Enterococcus faecalis 06/16/17 14:06 Blood Blood Culture - Final 06/15/17 22:50 Blood Blood Culture - Final Assessment and Plan (1) End-stage renal disease on hemodialysis Current Visit: Yes Status: Acute Code(s): N18.6 - END STAGE RENAL DISEASE; Z99.2 - DEPENDENCE ON RENAL DIALYSIS SNOMED Code(s): 820883319 (2) Weakness Current Visit: Yes Status: Acute Code(s): R53.1 - WEAKNESS SNOMED Code(s) : 91557206 (3) Atrial fibrillation with rapid ventricular response Current Visit: Yes Status: Acute Code(s): I48.91 - UNSPECIFIED ATRIAL FIBRILLATION SNOMED Code(s): 270316473478264 (4) Enterococcal bacteremia Narrative/Plan: 87-year-old female has multiple medical troubles that include coronary disease diabetes mellitus type 2 and has end-stage renal disease on hemodialysis. Physical fistula to her left arm relates that over a year ago developed difficulty with the cellulitis to her arm and a PermCath was applied. She's insisted on utilization of a PermCath since that point in time and that it is not tender like her arm is and has had no troubles. However as she has been instructed from the dialysis center PermCath access is difficult and is often fraught with infection. She now is evidence of enterococcus bacteremia strictly related to infection from her PermCath. This is discussed with the dinkey engine firer and the vascular surgeon. The patient will need the PermCath to be removed. She is very worried about this process in that last time she had a catheter removed who was very painful and she thought she was going to when it was removed. This is related to the vascular surgeon that she will need some type of sedation and local pain control to allow this to be removed. Because of all these issues the patient was asked contemplating whether she would have further hemodialysis. She over does relate up in the time that she became acutely ill she was active and interactive with her . Now that she's feeling better she seems to be reinvigorated about the process of continuing dialysis. Given her excellent mental status and her strong family support continue dialysis would be the most reasonable approach at this point in time. Certainly if she has any significant decline of her status then she may contemplate discontinuing dialysis at that time. As noted will have the current dialysis catheter removed. She will then continue antibiotic therapy at dialysis likely with vancomycin given the current data. June 18 2017 the patient is feeling better today. Is denying steady new difficulties except some pain in her neck that is improved with some muscle relaxant and pain medication Joeis is on hold her dialysis catheter removed on Monday. Vancomycin will continue and will need that for several weeks at dialysis after the catheter is removed. Surgeon is aware of the patient's great concerns by catheter removal regarding pain and discomfort. Current Visit: Yes Status: Acute Code(s): R78.81 - BACTEREMIA; B95.2 - ENTEROCOCCUS THE CAUSE OF DISEASES CLASSIFIED ELSEWHERE SNOMED Code(s): 090083177418
[2017-06-18 17:20] LABS: Glucose,Whole Blood 161 mg/dL (75-99)
--- NOTE | 2017-06-18 19:30 | PN ---
PROGRESS NOTE DATE OF SERVICE: 06/18/2017 Patient resting comfortably in bed. Claims her headache and neck pain is better. She is started on Flexeril, she took it about an hour ago and seems to be working. Vital signs: Temperature of 98, pulse 70, respiration 18, blood pressure 97/45, O2 saturation 97% on 2 L. HEENT atraumatic, normocephalic. Pupils equal and react to light. Extraocular movements intact. Buccal mucosa is fair. Neck is supple. No goiter, lymphadenopathy. JVD is negative. No carotid bruit heard. Lungs are clear to auscultate. No rales, rhonchi, or wheezes. Heart is regular rate and rhythm without any murmurs or gallop rhythm. Abdomen is soft, nontender, nondistended. Bowel sounds positive. Extremities: No edema, clubbing, cyanosis. Pulses are palpable. Neurological examination: Cranial nerves 2-12 grossly intact. No gross motor or sensory deficit. Skin is warm, dry and intact. LAB: CBC white blood count of 3.8, hemoglobin 9.2, hematocrit 29.7, platelet count 99. Chemical profile: Sodium 136, potassium 4.2, chloride 101, bicarb 26, BUN 41 and creatinine 3.2, and glucose 129. ASSESSMENT: 1. End-stage renal disease. Patient is maintained on dialysis on Tuesdays, , and Saturdays via PermCath. The patient is agreeable for an AV fistula now. 2. Enterococcus bacteremia. The patient is recommended removal of PermCath and AV fistula in its place. 3. Group D enterococcus bacteremia possibly secondary to PermCath. Vascular surgery is on board. 4. Atrial fibrillation with RVR. The patient's ventricular rate is controlled now. Continue current medications. 5. Hypotension possibly secondary to medications and dialysis. The patient has been stable so far. 6. Weakness and debility secondary to hypotension. 7. Elevated troponin. Acute coronary syndrome has been ruled out. 8. Hypertension. 9. Coronary artery disease. PLAN: Continue all current medications. ID is consulted for recommendations on Enterobacter bacteremia recommending removal of the PermCath. Vascular surgery is consulted. The patient stays on IV vancomycin. MMODL / IJN: [id number] /
[2017-06-18 21:17] LABS: Glucose,Whole Blood 249 mg/dL (75-99)
[2017-06-18] MEDS: ATORVASTATIN 80 MG TAB PO SCH (21:59)
[2017-06-18] MEDS: ZOLPIDEM 10 MG TAB PO PRN (23:12)
[2017-06-19] MEDS: MORPHINE SULFATE 4 MG/ML SYRINGE IVP PRN (04:43)
[2017-06-19 05:30] LABS: HGB 10.7 gm/dL (11.4-16.0); MCH 35.1 pg (25.0-35.0); MCHC 31.6 g/dL (31.0-37.0); MCV 111.1 fL (80.0-100.0); Macrocytosis Marked; Mean Platelet Volume 9.7; Platelet Count 110 k/uL (150-450); RBC 3.06 m/uL (3.80-5.40); RDW 15.7 % (11.5-15.5); WBC 5.9 k/uL (3.8-10.6)
[2017-06-19 05:31] LABS: Calcium 9.1 mg/dL (8.4-10.2); Hypochromasia Slight; Potassium 5.6 mmol/L (3.5-5.1)
[2017-06-19 05:58] LABS: Eosinophils # (M) 0.12 k/uL (0-0.7); Lymphocytes # (M) 1.06 k/uL (1.0-4.8); Monocytes # (M) 0.65 k/uL (0-1.0); Neutrophils # (M) 4.07 k/uL (1.3-7.7); Neutrophils % (M) 69 %; Nucleated Red Blood Cells 0 /100 WBC (0-0); Total Cells Counted 100
[2017-06-19 06:39] LABS: Glucose,Whole Blood 140 mg/dL (75-99)
[2017-06-19] MEDS: CALCIUM ACETATE 667 MG CAP PO SCH ×3 (06:47→17:43)
[2017-06-19] MEDS: INSULIN ASPART 100 UNIT/ML 1 ML 10 ML VIAL SQ SCH ×4 (06:47→21:37)
[2017-06-19] MEDS: ASPIRIN 325 MG TAB PO SCH (09:20)
[2017-06-19] MEDS: ISOSORBIDE MONONITRATE ER 15 MG TAB PO SCH (09:20)
[2017-06-19] MEDS: INSULIN DETEMIR 100 UNIT/ML 10 ML VIAL SQ SCH (09:20)
[2017-06-19] MEDS: AMIODARONE 200 MG TAB PO SCH (09:21)
[2017-06-19] MEDS: METOPROLOL SUCCINATE (ER) 50 MG TAB.ER.24H PO SCH (09:21)
[2017-06-19] MEDS: LOSARTAN 50 MG TAB PO SCH (09:21)
[2017-06-19] MEDS ORDERED: SODIUM POLYSTYRENE SULFONATE 15 GM/60 ML BOTTLE PO STA (10:23)
[2017-06-19] MEDS ORDERED: DEXTROSE 50%-WATER 50 ML SYRINGE IVP STA (10:23)
[2017-06-19] MEDS ORDERED: INSULIN REGULAR 100 UNIT/ML VIAL IV ONE (10:23)
--- NOTE | 2017-06-19 10:23 | P.PN ---
Subjective Patient is seen in follow-up for end-stage renal disease. She is maintained on hemodialysis on a Monday schedule via a permacath. Patient does have a left upper extremity AV fistula which she has been refusing to use as she had cellulitis in the past and doesn't want to be poked regularly. Patient presented with hypotension which is now resolved. She admits to soreness in her neck. Her blood cultures are positive for group D enterococcus. Denies chest pain or shortness of breath. Continues to have pain in her neck. Vital signs are stable. General: The patient appeared well nourished and normally developed. HEENT: Head exam is unremarkable. Neck is without jugular venous distension. LUNGS: Lungs are clear to auscultation and percussion. Breath sounds decreased. HEART: Rate and Rhythm are regular. First and second heart sounds normal. No murmurs, rubs or gallops. ABDOMEN: Abdominal exam reveals normal bowel sounds. Non-tender and non- distended. No evidence of peritonitis. EXTREMITITES: No clubbing, cyanosis, or edema. Objective - Vital Signs Vital signs: Vital Signs Temp 97.6 F 06/19/17 08:45 Pulse 80 06/19/17 08:45 Resp 18 06/19/17 08:45 BP 145/66 06/19/17 08:45 Pulse Ox 97 06/19/17 08:45 Intake & Output 06/18/17 06/19/17 06/19/17 18:59 06:59 18:59 Intake Total 720 Balance 720 Weight 72.3 kg Intake: Oral 720 Other: Voiding Method Toilet # Voids 0 0 - Labs CBC & Chem 7: 06/19/17 04:26 06/19/17 04:26 Labs: Abnormal Lab Results - Last 24 Hours (Table) 06/18/17 06/18/17 06/18/17 Range/Units 11:52 16:45 21:15 RBC (3.80-5.40) m/uL Hgb (11.4-16.0) gm/dL MCV (80.0-100.0) fL MCH (25.0-35.0) pg RDW (11.5-15.5) % Plt Count (150-450) k/uL Potassium (3.5-5.1) mmol/L BUN (7-17) mg/dL Creatinine (0.52-1.04) mg/dL Glucose (74-99) mg/dL POC Glucose (mg/dL) 141 H 161 H 249 H (75-99) mg/dL 06/19/17 06/19/17 06/19/17 Range/Units 04:26 04:26 06:24 RBC 3.06 L (3.80-5.40) m/uL Hgb 10.7 L (11.4-16.0) gm/dL MCV 111.1 H (80.0-100.0) fL MCH 35.1 H (25.0-35.0) pg RDW 15.7 H (11.5-15.5) % Plt Count 110 L (150-450) k/uL Potassium 5.6 H (3.5-5.1) mmol/L BUN 60 H (7-17) mg/dL Creatinine 4.20 H (0.52-1.04) mg/dL Glucose 142 H (74-99) mg/dL POC Glucose (mg/dL) 140 H (75-99) mg/dL Microbiology - Last 24 Hours (Table) 06/15/17 07:34 Urine Culture - Final Urine,Voided Klebsiella pneumoniae 06/16/17 14:06 Blood Culture Gram Stain - Final Blood Blood Culture - Final Enterococcus faecalis 06/17/17 11:10 Blood Culture Gram Stain - Preliminary Blood Blood Culture - Preliminary Group D Enterococcus 06/17/17 05:44 Blood Culture Gram Stain - Preliminary Blood Blood Culture - Preliminary Group D Enterococcus Assessment and Plan Plan: Assessment: #1. End-stage renal disease maintained on hemodialysis on a Monday schedule via permacath. Patient agreeable to use the AV fistula. #2. Generalized weakness related to hypotension. Improved. #3. Hypotension related to antihypertensives as well as ultrafiltration. Orthostatics negative. Also component of bacteremia. Blood pressure stable. #4. Chronic kidney disease mineral bone disease maintained on PhosLo. #5. Hypertension with chronic kidney disease. Currently controlled. #6. Insulin-dependent diabetes mellitus. #7. History of A. fib maintained on Eliquis. #8. Anemia of chronic kidney disease. Iron deficiency noted. #9. Group D enterococcus bacteremia with source being the permacath. #10. Hyperkalemia secondary to chronic kidney disease. Plan: Continue to hold home antihypertensives for systolic blood pressure less than 120. Maintain Aranesp. I will hold off on IV iron due to bacteremia. Antibiotics per infectious disease recommendations. Monitor vancomycin levels - target to 15. Permacath to be discontinued on Monday as she was on anticoagulation. Patient is agreeable to use the AVF. Next dialysis on Monday - will use small needles and attempt to use the AV fistula. If malfunctions, will use the permacath before it is discontinued. She can then remained catheter free for 2-3 days for the infection to clear and then a new permacath can be placed. Continue Flexeril once daily as needed. Discontinue morphine and start Dilaudid 1 mg every 4 hours as needed for pain. I will give her 10 units of IV insulin with amp of D50 now. 30 g of Kayexalate once. Repeat potassium at 6 PM today.
[2017-06-19] MEDS ORDERED: HYDROmorphone 0.5 MG/0.5 ML SYRINGE IVP PRN ×2 (10:29→10:32)
[2017-06-19 12:57] LABS: Glucose,Whole Blood 167 mg/dL (75-99)
[2017-06-19] MEDS: HYDROmorphone 4 MG TABLET PO PRN ×3 (17:09→22:55)
[2017-06-19 17:20] LABS: Glucose,Whole Blood 142 mg/dL (75-99)
--- NOTE | 2017-06-19 18:41 | P.PN ---
Subjective Progress Note Date: 06/19/17 Progress Note Being Dictated for Dr. Salomon. Interval history: This is an 87-year-old female admitted with end-stage renal disease, maintained on dialysis via permacath, enteric coccus bacteremia secondary to PermCath, and multiple other medical issues. Now agreeable to using her AV fistula. Anticoagulation remains on hold with PermCath removal scheduled for Monday. Maintained on IV antibiotics as per infectious disease. Afebrile. Telemetry reporting paced. Potassium 5.6, received continuous regular insulin, D50, Kayexalate. Objective - Vital Signs Vital signs: Vital Signs Temp 97.9 F 06/19/17 11:30 Pulse 70 06/19/17 11:30 Resp 18 06/19/17 11:30 BP 150/79 06/19/17 11:30 Pulse Ox 97 06/19/17 11:30 Intake & Output 06/18/17 06/19/17 06/19/17 18:59 06:59 18:59 Intake Total 720 100 Balance 720 100 Weight 72.3 kg Intake: Oral 720 100 Other: Voiding Method Toilet # Voids 0 0 - Exam PHYSICAL EXAM: VITAL SIGNS: As above GENERAL: Sitting up in bed, no acute distress HEENT: Conjunctivae normal. eyes normal. Oral mucosa moist NECK: No JVD. No thyroid enlargement. No LNs CARDIOVASCULAR: S1, S2 muffled. No murmur RESPIRATION: Breath sounds diminished in the bases. No rhonchi or crackles. ABDOMEN: Soft, nontender . No guarding. no masses palpable. Bowel sounds heard. LEGS: No edema. no swelling PSYCHIATRY: Alert and oriented -3, mood and affect normal. NERVOUS SYSTEM: Cranial N 2-12 grossly normal. Moves all 4 limbs. Diffuse weakness No focal deficits. Skin: no ulcer no rash Joints: No active swelling. No inflammation. Lymphatic system. No LN neck axilla or groin. Microbiology 06/15/17 07:34 Urine,Voided Urine Culture - Final Klebsiella pneumoniae 06/16/17 14:06 Blood Blood Culture Gram Stain - Final 06/16/17 14:06 Blood Blood Culture - Final Enterococcus faecalis 06/17/17 11:10 Blood Blood Culture Gram Stain - Preliminary 06/17/17 11:10 Blood Blood Culture - Preliminary Group D Enterococcus 06/17/17 05:44 Blood Blood Culture Gram Stain - Preliminary 06/17/17 05:44 Blood Blood Culture - Preliminary Group D Enterococcus 06/17/17 11:10 Blood Blood Culture - Preliminary 06/17/17 05:44 Blood Blood Culture - Preliminary 06/15/17 22:50 Blood Blood Culture Gram Stain - Final 06/15/17 22:50 Blood Blood Culture - Final Enterococcus faecalis 06/16/17 14:06 Blood Blood Culture - Final 06/15/17 22:50 Blood Blood Culture - Final - Labs CBC & Chem 7: 06/19/17 04:26 06/19/17 17:45 Labs: Abnormal Lab Results - Last 24 Hours (Table) 06/18/17 06/19/17 06/19/17 Range/Units 21:15 04:26 04:26 RBC 3.06 L (3.80-5.40) m/uL Hgb 10.7 L (11.4-16.0) gm/dL MCV 111.1 H (80.0-100.0) fL MCH 35.1 H (25.0-35.0) pg RDW 15.7 H (11.5-15.5) % Plt Count 110 L (150-450) k/uL Potassium 5.6 H (3.5-5.1) mmol/L BUN 60 H (7-17) mg/dL Creatinine 4.20 H (0.52-1.04) mg/dL Glucose 142 H (74-99) mg/dL POC Glucose (mg/dL) 249 H (75-99) mg/dL 06/19/17 06/19/17 06/19/17 Range/Units 06:24 11:58 16:56 RBC (3.80-5.40) m/uL Hgb (11.4-16.0) gm/dL MCV (80.0-100.0) fL MCH (25.0-35.0) pg RDW (11.5-15.5) % Plt Count (150-450) k/uL Potassium (3.5-5.1) mmol/L BUN (7-17) mg/dL Creatinine (0.52-1.04) mg/dL Glucose (74-99) mg/dL POC Glucose (mg/dL) 140 H 167 H 142 H (75-99) mg/dL Microbiology - Last 24 Hours (Table) 06/15/17 07:34 Urine Culture - Final Urine,Voided Klebsiella pneumoniae 06/16/17 14:06 Blood Culture Gram Stain - Final Blood Blood Culture - Final Enterococcus faecalis 06/17/17 11:10 Blood Culture Gram Stain - Preliminary Blood Blood Culture - Preliminary Group D Enterococcus 06/17/17 05:44 Blood Culture Gram Stain - Preliminary Blood Blood Culture - Preliminary Group D Enterococcus Assessment and Plan Assessment: 1. End-stage renal disease, maintained on dialysis via PermCath, agreeable to use AV fistula 2. Group D Enterococcus bacteremia, suspected source PermCath, removal of pending 3. Atrial fibrillation with RVR 4. Weakness, medical debility secondary to hypotension, improved 5. Elevated troponin, acute coronary syndrome has been ruled out 6.CAD 7. Anemia of chronic kidney disease, iron deficiency Plan: Continue on current medication regime ,monitoring and symptomatic treatment. Anticoagulation remains on hold with Removal of PermCath scheduled for Monday. Hyperkalemic, receiving IV regular insulin, D50, Kayexalate with repeat potassium level this afternoon. The impression and plan of care has been dictated as directed. : I performed a history and examination of this patient, discussed the same with the dictator. I agree with the dictator's note ,documented as a scribe. Any additional findings or plans will be noted.
[2017-06-19 20:35] LABS: Glucose,Whole Blood 167 mg/dL (75-99)
[2017-06-19] MEDS: ATORVASTATIN 80 MG TAB PO SCH (21:36)
[2017-06-19] MEDS: ZOLPIDEM 10 MG TAB PO PRN (21:36)
[2017-06-19] MEDS: LIDOCAINE 5% PATCH TOPICAL SCH (21:36)
--- NOTE | 2017-06-19 23:19 | P.PN ---
Subjective Progress Note Date: 06/19/17 Principal diagnosis: Very pleasant 87-year-old female who has multiple medical troubles that includes end-stage renal disease on hemodialysis via a PermCath on the right anterior chest wall. The patient's is pleasant and cooberates her story, but the patient is an excellent historian. The patient relates that over a year ago she's having some difficulty with her fistula in her left arm and she developed a significant cellulitis. At that time a PermCath was applied to the right anterior chest wall from her vascular surgeon who is out of town. She's been maintained on hemodialysis via the PermCath although the dialysis center and her rotary pump operator have consistently requested for her to only utilize the fistula but the patient refused. She was concerned about the fistula and the discomfort that it caused her. The patient however became ill she developed profound weakness generalized malaise fever. She is on evidence of atrial fibrillation with a rapid ventricular response and required hospitalization. With this treatment she is feeling somewhat better but was not evidence of Enterococcus faecalis bacteremia. There are now multiple positive blood cultures and infectious diseases consultation was requested. The case is discussed with the rotary pump operator. The patient is feeling slightly better today. She relates that she is quite confused about what she is to do. 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 The patient is very intelligent and has a very supporting . Significant conversations occurred throughout the consult. She has noted she does feel somewhat better today. 06/18/2017 patient feels better today. She's had some visitors. She will have her catheter removed on Monday once her blood thinners have been out of her system for 2 days. 06/19/2017 patient continues to complain of pain into her neck which is quite severe. There is difficulty with the Dilaudid supplied with her morphine ALLERGY has not been able to have significant amounts of pain control today. She is very angry and takes it out on her nurse that she was not receiving pain control. She is reeducated on the difficulty with medication supply and she simply relates the nurse just wasn't doing her job. Her supportive of the nurses position. Objective - Vital Signs Vital signs: Vital Signs Temp 97.3 F L 06/19/17 19:36 Pulse 69 06/19/17 19:36 Resp 16 06/19/17 19:36 BP 122/57 06/19/17 19:36 Pulse Ox 99 06/19/17 19:36 Intake & Output 06/19/17 06/19/17 06/20/17 06:59 18:59 06:59 Intake Total 500 Output Total 500 Balance 0 Weight 72.3 kg Intake: Oral 500 Output: Urine 500 Other: Voiding Method Toilet # Voids 0 - Exam Patient not in distress but complains of pain to her neck area and she is miserable HEENT: Anicteric conjunctiva are pink and moist nasal mucosa grossly intact without significant lesions, there is no thrush. Neck: The neck is supple without significant lymphadenopathy or thyromegaly. Lungs: Good bilateral air entry without significant crackles or wheezing. There is no significant bronchial sounds. There is no egophony or dullness. Heart: Irregularly irregular without audible S1 and S2 no S3 soft S4 There is no significant murmur click or rub, PMI was nondisplaced. Abdomen: Positive bowel sounds soft and nontender without palpable masses or organomegaly. There was no guarding or rebound. Extremities: The upper extremities have excellent pulses they are symmetric, no significant petechiae or telangiectasia. This shows a left arm has an easily palpated thrill and is nontender. No splinter hemorrhages were noted. The lower extremities have evidence of minimal edema. No significant lesions or ulcers in the lower extremities Neuro: Awake alert oriented to person place and time. There are no acute new gross focal sensory motor deficits. - Labs CBC & Chem 7: 06/19/17 04:26 06/19/17 17:45 Labs: Abnormal Lab Results - Last 24 Hours (Table) 06/19/17 06/19/17 06/19/17 Range/Units 04:26 04:26 06:24 RBC 3.06 L (3.80-5.40) m/uL Hgb 10.7 L (11.4-16.0) gm/dL MCV 111.1 H (80.0-100.0) fL MCH 35.1 H (25.0-35.0) pg RDW 15.7 H (11.5-15.5) % Plt Count 110 L (150-450) k/uL Potassium 5.6 H (3.5-5.1) mmol/L BUN 60 H (7-17) mg/dL Creatinine 4.20 H (0.52-1.04) mg/dL Glucose 142 H (74-99) mg/dL POC Glucose (mg/dL) 140 H (75-99) mg/dL 06/19/17 06/19/17 06/19/17 Range/Units 11:58 16:56 20:33 RBC (3.80-5.40) m/uL Hgb (11.4-16.0) gm/dL MCV (80.0-100.0) fL MCH (25.0-35.0) pg RDW (11.5-15.5) % Plt Count (150-450) k/uL Potassium (3.5-5.1) mmol/L BUN (7-17) mg/dL Creatinine (0.52-1.04) mg/dL Glucose (74-99) mg/dL POC Glucose (mg/dL) 167 H 142 H 167 H (75-99) mg/dL Microbiology - Last 24 Hours (Table) 06/15/17 07:34 Urine Culture - Final Urine,Voided Klebsiella pneumoniae Laboratory Results WBC 5.9 k/uL (3.8-10.6) 06/19/17 04:26 RBC 3.06 m/uL (3.80-5.40) L 06/19/17 04:26 Hgb 10.7 gm/dL (11.4-16.0) L 06/19/17 04:26 Hct 34.0 % (34.0-46.0) 06/19/17 04:26 MCV 111.1 fL (80.0-100.0) H 06/19/17 04:26 MCH 35.1 pg (25.0-35.0) H 06/19/17 04:26 MCHC 31.6 g/dL (31.0-37.0) 06/19/17 04:26 RDW 15.7 % (11.5-15.5) H 06/19/17 04:26 Plt Count 110 k/uL (150-450) L 06/19/17 04:26 Neutrophils % 87 % 06/15/17 22:50 Neutrophils % (Manual) 69 % 06/19/17 04:26 Lymphocytes % 5 % 06/15/17 22:50 Lymphocytes % (Manual) 18 % 06/19/17 04:26 Monocytes % 6 % 06/15/17 22:50 Monocytes % (Manual) 11 % 06/19/17 04:26 Eosinophils % 0 % 06/15/17 22:50 Eosinophils % (Manual) 2 % 06/19/17 04:26 Basophils % 0 % 06/15/17 22:50 Basophils % (Manual) 2 % 06/18/17 05:19 Neutrophils # 5.1 k/uL (1.3-7.7) 06/15/17 22:50 Neutrophils # (Manual) 4.07 k/uL (1.3-7.7) 06/19/17 04:26 Lymphocytes # 0.3 k/uL (1.0-4.8) L 06/15/17 22:50 Lymphocytes # (Manual) 1.06 k/uL (1.0-4.8) 06/19/17 04:26 Monocytes # 0.4 k/uL (0-1.0) 06/15/17 22:50 Monocytes # (Manual) 0.65 k/uL (0-1.0) 06/19/17 04:26 Eosinophils # 0.0 k/uL (0-0.7) 06/15/17 22:50 Eosinophils # (Manual) 0.12 k/uL (0-0.7) 06/19/17 04:26 Basophils # 0.0 k/uL (0-0.2) 06/15/17 22:50 Basophils # (Manual) 0.08 k/uL (0-0.2) 06/18/17 05:19 Nucleated RBCs 0 /100 WBC (0-0) 06/19/17 04:26 Manual Slide Review Performed 06/19/17 04:26 Polychromasia Present 06/15/17 22:50 Hypochromasia Slight 06/19/17 04:26 Anisocytosis Slight 06/15/17 22:50 Macrocytosis Marked 06/19/17 04:26 PT 11.2 sec (9.0-12.0) 06/15/17 22:50 INR 1.2 (<1.2) H 06/15/17 22:50 APTT 23.3 sec (22.0-30.0) 06/15/17 22:50 Sodium 138 mmol/L (137-145) 06/19/17 04:26 Potassium 4.6 mmol/L (3.5-5.1) 06/19/17 17:45 Chloride 105 mmol/L (98-107) 06/19/17 04:26 Carbon Dioxide 22 mmol/L (22-30) 06/19/17 04:26 Anion Gap 11 mmol/L 06/19/17 04:26 BUN 60 mg/dL (7-17) H 06/19/17 04:26 Creatinine 4.20 mg/dL (0.52-1.04) H 06/19/17 04:26 Est GFR (MDRD) Af Amer 12 (>60 ml/min/1.73 sqM) 06/19/17 04:26 Est GFR (MDRD) Non-Af 10 (>60 ml/min/1.73 sqM) 06/19/17 04:26 Glucose 142 mg/dL (74-99) H 06/19/17 04:26 POC Glucose (mg/dL) 167 mg/dL (75-99) H 06/19/17 20:33 POC Glu Supervisor Telephone Information ID Aurora Moya 06/19/17 20:33 Calcium 9.1 mg/dL (8.4-10.2) 06/19/17 04:26 Phosphorus 3.4 mg/dL (2.5-4.5) 06/15/17 22:50 Magnesium 2.0 mg/dL (1.6-2.3) 06/15/17 22:50 Iron 25 ug/dL (50-170) L 06/16/17 10:36 TIBC 198 ug/dL (228-460) L 06/16/17 10:36 Iron Saturation 12.63 (12.00-45.00) 06/16/17 10:36 Ferritin 2677.2 ng/mL (10.0-291.0) H 06/16/17 10:36 Total Bilirubin 0.5 mg/dL (0.2-1.3) 06/15/17 22:50 AST 191 U/L (14-36) H 06/15/17 22:50 ALT 139 U/L (9-52) H 06/15/17 22:50 Alkaline Phosphatase 59 U/L (38-126) 06/15/17 22:50 Total Creatine Kinase 150 U/L (30-135) H 06/16/17 10:36 CK-MB (CK-2) 3.0 ng/mL (0.0-2.4) H* 06/16/17 10:36 CK-MB (CK-2) Rel Index 2.0 06/16/17 10:36 Troponin I 0.935 ng/mL (0.000-0.034) H* 06/16/17 10:36 Total Protein 5.9 g/dL (6.3-8.2) L 06/15/17 22:50 Albumin 3.6 g/dL (3.5-5.0) 06/15/17 22:50 Triglycerides 103 mg/dL (<150) 06/17/17 05:44 Cholesterol 119 mg/dL (<200) 06/17/17 05:44 LDL Cholesterol, Calc 52 mg/dL (0-99) 06/17/17 05:44 HDL Cholesterol 46 mg/dL (40-60) 06/17/17 05:44 Urine Color Yellow 06/15/17 07:34 Urine Appearance Cloudy (Clear) H 06/15/17 07:34 Urine pH 5.0 (5.0-8.0) 06/15/17 07:34 Ur Specific [place] 1.021 (1.001-1.035) 06/15/17 07:34 Urine Protein Trace (Negative) H 06/15/17 07:34 Urine Glucose (UA) Negative (Negative) 06/15/17 07:34 Urine Ketones Negative (Negative) 06/15/17 07:34 Urine Blood Trace (Negative) H 06/15/17 07:34 Urine Nitrite Negative (Negative) 06/15/17 07:34 Urine Bilirubin 1+ (Negative) H 06/15/17 07:34 Urine Urobilinogen 2.0 mg/dL (<2.0) 06/15/17 07:34 Ur Leukocyte Esterase Large (Negative) H 06/15/17 07:34 Urine RBC 10 /hpf (0-5) H 06/15/17 07:34 Urine WBC 52 /hpf (0-5) H 06/15/17 07:34 Urine WBC Clumps Occasional /hpf (None) H 06/15/17 07:34 Ur Squamous Epith Cells 20 /hpf (0-4) H 06/15/17 07:34 Urine Bacteria Occasional /hpf (None) H 06/15/17 07:34 Urine Mucus Rare /hpf (None) H 06/15/17 07:34 Random Vancomycin 14.2 ug/mL 06/18/17 05:19 Microbiology 06/15/17 07:34 Urine,Voided Urine Culture - Final Klebsiella pneumoniae 06/16/17 14:06 Blood Blood Culture Gram Stain - Final 06/16/17 14:06 Blood Blood Culture - Final Enterococcus faecalis 06/17/17 11:10 Blood Blood Culture Gram Stain - Preliminary 06/17/17 11:10 Blood Blood Culture - Preliminary Group D Enterococcus 06/17/17 05:44 Blood Blood Culture Gram Stain - Preliminary 06/17/17 05:44 Blood Blood Culture - Preliminary Group D Enterococcus 06/17/17 11:10 Blood Blood Culture - Preliminary 06/17/17 05:44 Blood Blood Culture - Preliminary 06/15/17 22:50 Blood Blood Culture Gram Stain - Final 06/15/17 22:50 Blood Blood Culture - Final Enterococcus faecalis 06/16/17 14:06 Blood Blood Culture - Final 06/15/17 22:50 Blood Blood Culture - Final Assessment and Plan (1) End-stage renal disease on hemodialysis Current Visit: Yes Status: Acute Code(s): N18.6 - END STAGE RENAL DISEASE; Z99.2 - DEPENDENCE ON RENAL DIALYSIS SNOMED Code(s): 768163478 (2) Weakness Current Visit: Yes Status: Acute Code(s): R53.1 - WEAKNESS SNOMED Code(s) : 39961960 (3) Atrial fibrillation with rapid ventricular response Current Visit: Yes Status: Acute Code(s): I48.91 - UNSPECIFIED ATRIAL FIBRILLATION SNOMED Code(s): 423439285704403 (4) Enterococcal bacteremia Narrative/Plan: 87-year-old female has multiple medical troubles that include coronary disease diabetes mellitus type 2 and has end-stage renal disease on hemodialysis. Physical fistula to her left arm relates that over a year ago developed difficulty with the cellulitis to her arm and a PermCath was applied. She's insisted on utilization of a PermCath since that point in time and that it is not tender like her arm is and has had no troubles. However as she has been instructed from the dialysis center PermCath access is difficult and is often fraught with infection. She now is evidence of enterococcus bacteremia strictly related to infection from her PermCath. This is discussed with the rotary pump operator and the vascular surgeon. The patient will need the PermCath to be removed. She is very worried about this process in that last time she had a catheter removed who was very painful and she thought she was going to when it was removed. This is related to the vascular surgeon that she will need some type of sedation and local pain control to allow this to be removed. Because of all these issues the patient was asked contemplating whether she would have further hemodialysis. She over does relate up in the time that she became acutely ill she was active and interactive with her . Now that she's feeling better she seems to be reinvigorated about the process of continuing dialysis. Given her excellent mental status and her strong family support continue dialysis would be the most reasonable approach at this point in time. Certainly if she has any significant decline of her status then she may contemplate discontinuing dialysis at that time. As noted will have the current dialysis catheter removed. She will then continue antibiotic therapy at dialysis likely with vancomycin given the current data. June 18 2017 the patient is feeling better today. Is denying steady new difficulties except some pain in her neck that is improved with some muscle relaxant and pain medication Elquis is on hold her dialysis catheter removed on Monday. Vancomycin will continue and will need that for several weeks at dialysis after the catheter is removed. Surgeon is aware of the patient's great concerns by catheter removal regarding pain and discomfort. 06/19/2017 patient miserable will add lidoderm patch and hopefully will be able to obtain Dilaudid to help pain. Surgery tomorrow for catheter removal which will help resolve her sepsis. Current Visit: Yes Status: Acute Code(s): R78.81 - BACTEREMIA; B95.2 - ENTEROCOCCUS THE CAUSE OF DISEASES CLASSIFIED ELSEWHERE SNOMED Code(s): 517764623008
[2017-06-20] MEDS: CYCLOBENZAPRINE 5 MG TAB PO PRN (00:20)
[2017-06-20] MEDS ORDERED: KETOROLAC 30 MG/ML 1 ML VIAL IVP STA (00:28)
[2017-06-20] MEDS: HYDROmorphone 4 MG TABLET PO PRN ×2 (06:14→17:59)
[2017-06-20 07:23] LABS: Glucose,Whole Blood 135 mg/dL (75-99)
[2017-06-20] MEDS: INSULIN ASPART 100 UNIT/ML 1 ML 10 ML VIAL SQ SCH ×4 (08:40→20:44)
[2017-06-20] MEDS: CALCIUM ACETATE 667 MG CAP PO SCH ×3 (08:41→16:38)
[2017-06-20] MEDS: LIDOCAINE 5% PATCH TOPICAL SCH (08:41)
[2017-06-20] MEDS: ASPIRIN 325 MG TAB PO SCH ×2 (08:42→11:26)
[2017-06-20] MEDS: INSULIN DETEMIR 100 UNIT/ML 10 ML VIAL SQ SCH (08:43)
[2017-06-20] MEDS: METOPROLOL SUCCINATE (ER) 50 MG TAB.ER.24H PO SCH (08:43)
[2017-06-20] MEDS: AMIODARONE 200 MG TAB PO SCH (08:43)
[2017-06-20 08:44] LABS: Calcium 8.8 mg/dL (8.4-10.2); Potassium 4.9 mmol/L (3.5-5.1)
[2017-06-20 08:49] LABS: Vancomycin,Random 21.4 ug/mL
[2017-06-20] MEDS ORDERED: LIDOCAINE-PRILOCAINE 2.5-2.5% CREAM 5 GM TUBE TOPICAL STA (11:19)
[2017-06-20 11:33] LABS: Glucose,Whole Blood 139 mg/dL (75-99)
--- NOTE | 2017-06-20 11:35 | P.PN ---
Subjective Patient is seen in follow-up for end-stage renal disease. She is maintained on hemodialysis on a Monday schedule via a permacath. Patient does have a left upper extremity AV fistula which she has been refusing to use as she had cellulitis in the past and doesn't want to be poked regularly. Patient presented with hypotension which is now resolved. She admits to soreness in her neck which is improved today. Her blood cultures are positive for group D enterococcus. Denies chest pain or shortness of breath. Vital signs are stable. General: The patient appeared well nourished and normally developed. HEENT: Head exam is unremarkable. Neck is without jugular venous distension. LUNGS: Lungs are clear to auscultation and percussion. Breath sounds decreased. HEART: Rate and Rhythm are regular. First and second heart sounds normal. No murmurs, rubs or gallops. ABDOMEN: Abdominal exam reveals normal bowel sounds. Non-tender and non- distended. No evidence of peritonitis. EXTREMITITES: No clubbing, cyanosis, or edema. Objective - Vital Signs Vital signs: Vital Signs Temp 97.0 F L 06/20/17 06:22 Pulse 73 06/20/17 06:22 Resp 16 06/20/17 06:22 BP 123/63 06/20/17 06:22 Pulse Ox 98 06/20/17 06:22 Intake & Output 06/19/17 06/20/17 06/20/17 18:59 06:59 18:59 Intake Total 500 Output Total 500 Balance 0 Weight 71.5 kg Intake: Oral 500 Output: Urine 500 Other: Voiding Method Toilet Toilet # Voids 0 - Labs CBC & Chem 7: 06/19/17 04:26 06/20/17 08:02 Labs: Abnormal Lab Results - Last 24 Hours (Table) 06/19/17 06/19/17 06/19/17 Range/Units 11:58 16:56 20:33 BUN (7-17) mg/dL Creatinine (0.52-1.04) mg/dL Glucose (74-99) mg/dL POC Glucose (mg/dL) 167 H 142 H 167 H (75-99) mg/dL 06/20/17 06/20/17 Range/Units 07:17 08:02 BUN 74 H (7-17) mg/dL Creatinine 5.20 H* (0.52-1.04) mg/dL Glucose 135 H (74-99) mg/dL POC Glucose (mg/dL) 135 H (75-99) mg/dL Microbiology - Last 24 Hours (Table) 06/17/17 11:10 Blood Culture Gram Stain - Final Blood Blood Culture - Final Enterococcus faecalis 06/17/17 05:44 Blood Culture Gram Stain - Final Blood Blood Culture - Final Enterococcus faecalis Assessment and Plan Plan: Assessment: #1. End-stage renal disease maintained on hemodialysis on a Monday schedule via permacath. Patient agreeable to use the AV fistula. #2. Generalized weakness related to hypotension. Improved. #3. Hypotension related to antihypertensives as well as ultrafiltration. Orthostatics negative. Also component of bacteremia. Blood pressure stable. #4. Chronic kidney disease mineral bone disease maintained on PhosLo. #5. Hypertension with chronic kidney disease. Currently controlled. #6. Insulin-dependent diabetes mellitus. #7. History of A. fib maintained on Eliquis. #8. Anemia of chronic kidney disease. Iron deficiency noted. #9. Group D enterococcus bacteremia with source being the permacath. #10. Hyperkalemia secondary to chronic kidney disease. Plan: Continue to hold home antihypertensives for systolic blood pressure less than 120. Maintain Aranesp. I will hold off on IV iron due to bacteremia. Antibiotics per infectious disease recommendations. Monitor vancomycin levels - target to 15. Permacath to be discontinued today as she was on anticoagulation. Patient is agreeable to use the AVF. Hemodialysis today - will use small needles and attempt to use the AV fistula. If malfunctions, will use the permacath before it is discontinued. She can then remained catheter free for 2-3 days for the infection to clear and then a new permacath can be placed. Continue Flexeril once daily as needed. Discontinued morphine and start Dilaudid 1 mg every 4 hours as needed for pain - pain is much better controlled.
[2017-06-20] MEDS: ISOSORBIDE MONONITRATE ER 15 MG TAB PO SCH (12:25)
[2017-06-20] MEDS: LOSARTAN 50 MG TAB PO SCH (12:25)
[2017-06-20 16:49] LABS: Glucose,Whole Blood 106 mg/dL (75-99)
[2017-06-20] MEDS ORDERED: VANCOMYCIN 1,250 MG in SODIUM CHLORIDE 0.9% 250 ML IVPB ONE (20:00)
--- NOTE | 2017-06-20 20:00 | P.PN ---
Subjective Progress Note Date: 06/20/17 Progress Note Being Dictated for Dr. Salomon. Interval history: This is an 87-year-old female admitted with end-stage renal disease, maintained on dialysis via permacath, enteric coccus bacteremia secondary to PermCath, and multiple other medical issues. Now agreeable to using her AV fistula. Anticoagulation remains on hold with PermCath removal scheduled for Monday. Maintained on IV antibiotics as per infectious disease. Afebrile. Telemetry reporting paced. Potassium 5.6, received continuous regular insulin, D50, Kayexalate. 06/20/2017 maintained on IV antibiotics as per infectious disease. Afebrile. Pain better controlled. Potassium normalized. Blood sugars controlled .VSS.Scheduled for a PermCath to be discontinued today and patient will begin using her AV fistula for hemodialysis as per nephrology. Objective - Vital Signs Vital signs: Vital Signs Temp 97.2 F L 06/20/17 15:00 Pulse 70 06/20/17 15:00 Resp 16 06/20/17 15:00 BP 121/56 06/20/17 15:00 Pulse Ox 98 06/20/17 15:00 Intake & Output 06/20/17 06/20/17 06/21/17 06:59 18:59 06:59 Intake Total 950 Balance 950 Weight 71.5 kg Intake: Oral 950 Other: Voiding Method Toilet Toilet # Voids 0 1 - Exam PHYSICAL EXAM: VITAL SIGNS: As above GENERAL: Sitting up in bed, no acute distress HEENT: Conjunctivae normal. eyes normal. Oral mucosa moist NECK: No JVD. No thyroid enlargement. No LNs CARDIOVASCULAR: S1, S2 muffled. No murmur RESPIRATION: Breath sounds diminished in the bases. No rhonchi or crackles. ABDOMEN: Soft, nontender . No guarding. no masses palpable. Bowel sounds heard. LEGS: No edema. no swelling PSYCHIATRY: Alert and oriented -3, mood and affect normal. NERVOUS SYSTEM: Cranial N 2-12 grossly normal. Moves all 4 limbs. Diffuse weakness No focal deficits. Skin: no ulcer no rash Joints: No active swelling. No inflammation. Lymphatic system. No LN neck axilla or groin. Microbiology 06/15/17 07:34 Urine,Voided Urine Culture - Final Klebsiella pneumoniae 06/16/17 14:06 Blood Blood Culture Gram Stain - Final 06/16/17 14:06 Blood Blood Culture - Final Enterococcus faecalis 06/17/17 11:10 Blood Blood Culture Gram Stain - Preliminary 06/17/17 11:10 Blood Blood Culture - Preliminary Group D Enterococcus 06/17/17 05:44 Blood Blood Culture Gram Stain - Preliminary 06/17/17 05:44 Blood Blood Culture - Preliminary Group D Enterococcus 06/17/17 11:10 Blood Blood Culture - Preliminary 06/17/17 05:44 Blood Blood Culture - Preliminary 06/15/17 22:50 Blood Blood Culture Gram Stain - Final 06/15/17 22:50 Blood Blood Culture - Final Enterococcus faecalis 06/16/17 14:06 Blood Blood Culture - Final 06/15/17 22:50 Blood Blood Culture - Final - Labs CBC & Chem 7: 06/19/17 04:26 06/20/17 08:02 Labs: Abnormal Lab Results - Last 24 Hours (Table) 06/19/17 06/20/17 06/20/17 Range/Units 20:33 07:17 08:02 BUN 74 H (7-17) mg/dL Creatinine 5.20 H* (0.52-1.04) mg/dL Glucose 135 H (74-99) mg/dL POC Glucose (mg/dL) 167 H 135 H (75-99) mg/dL 06/20/17 06/20/17 Range/Units 11:16 16:38 BUN (7-17) mg/dL Creatinine (0.52-1.04) mg/dL Glucose (74-99) mg/dL POC Glucose (mg/dL) 139 H 106 H (75-99) mg/dL Microbiology - Last 24 Hours (Table) 06/17/17 11:10 Blood Culture Gram Stain - Final Blood Blood Culture - Final Enterococcus faecalis 06/17/17 05:44 Blood Culture Gram Stain - Final Blood Blood Culture - Final Enterococcus faecalis Assessment and Plan Assessment: 1. End-stage renal disease, maintained on dialysis via PermCath, agreeable to use AV fistula 2. Group D Enterococcus bacteremia, suspected source PermCath, removal of pending 3. Atrial fibrillation with RVR 4. Weakness, medical debility secondary to hypotension, improved 5. Elevated troponin, acute coronary syndrome has been ruled out 6.CAD 7. Anemia of chronic kidney disease, iron deficiency Plan: Continue on current medication regime ,monitoring and symptomatic treatment. Anticoagulation remains on hold with Removal of PermCath scheduled for Today. Evaluated by physical therapy with recommendations noted. Social work consult in place for potential subacute rehab at discharge. Further recommendations to follow. The impression and plan of care has been dictated as directed. : I performed a history and examination of this patient, discussed the same with the dictator. I agree with the dictator's note ,documented as a scribe. Any additional findings or plans will be noted.
[2017-06-20 20:41] LABS: Glucose,Whole Blood 175 mg/dL (75-99)
[2017-06-20] MEDS: ATORVASTATIN 80 MG TAB PO SCH (20:45)
[2017-06-20] MEDS: ZOLPIDEM 10 MG TAB PO PRN (21:36)
--- NOTE | 2017-06-20 23:17 | P.PN ---
Subjective Progress Note Date: 06/20/17 Principal diagnosis: Very pleasant 87-year-old female who has multiple medical troubles that includes end-stage renal disease on hemodialysis via a PermCath on the right anterior chest wall. The patient's is pleasant and cooberates her story, but the patient is an excellent historian. The patient relates that over a year ago she's having some difficulty with her fistula in her left arm and she developed a significant cellulitis. At that time a PermCath was applied to the right anterior chest wall from her vascular surgeon who is out of town. She's been maintained on hemodialysis via the PermCath although the dialysis center and her utility bag assembler have consistently requested for her to only utilize the fistula but the patient refused. She was concerned about the fistula and the discomfort that it caused her. The patient however became ill she developed profound weakness generalized malaise fever. She is on evidence of atrial fibrillation with a rapid ventricular response and required hospitalization. With this treatment she is feeling somewhat better but was not evidence of Enterococcus faecalis bacteremia. There are now multiple positive blood cultures and infectious diseases consultation was requested. The case is discussed with the utility bag assembler. The patient is feeling slightly better today. She relates that she is quite confused about what she is to do. 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 The patient is very intelligent and has a very supporting . Significant conversations occurred throughout the consult. She has noted she does feel somewhat better today. 06/18/2017 patient feels better today. She's had some visitors. She will have her catheter removed on Monday once her blood thinners have been out of her system for 2 days. 06/19/2017 patient continues to complain of pain into her neck which is quite severe. There is difficulty with the Dilaudid supplied with her morphine ALLERGY has not been able to have significant amounts of pain control today. She is very angry and takes it out on her nurse that she was not receiving pain control. She is reeducated on the difficulty with medication supply and she simply relates the nurse just wasn't doing her job. Her supportive of the nurses position. 06/20/2017 reveals the patient to be considerably improved today. Her anger and misery of yesterday have resolved. Dilaudid once again became available to the pharmacy and a dose of that is resulted in a significant improvement of her pain. Dialysis via her fistula occurred today and she was shocked how well it went. We'll have her dialysis catheter removed in the morning. Objective - Vital Signs Vital signs: Vital Signs Temp 97.0 F L 06/20/17 22:58 Pulse 69 06/20/17 22:58 Resp 16 06/20/17 22:58 BP 106/39 06/20/17 22:58 Pulse Ox 99 06/20/17 22:58 Intake & Output 06/20/17 06/20/17 06/21/17 06:59 18:59 06:59 Intake Total 950 Balance 950 Weight 71.5 kg Intake: Oral 950 Other: Voiding Method Toilet Toilet # Voids 0 1 0 - Exam Patient not in distress is much more comfortable today HEENT: Anicteric conjunctiva are pink and moist nasal mucosa grossly intact without significant lesions, there is no thrush. Neck: The neck is supple without significant lymphadenopathy or thyromegaly. Lungs: Good bilateral air entry without significant crackles or wheezing. There is no significant bronchial sounds. There is no egophony or dullness. Heart: Irregularly irregular without audible S1 and S2 no S3 soft S4 There is no significant murmur click or rub, PMI was nondisplaced. Abdomen: Positive bowel sounds soft and nontender without palpable masses or organomegaly. There was no guarding or rebound. Extremities: The upper extremities have excellent pulses they are symmetric, no significant petechiae or telangiectasia. This shows a left arm has an easily palpated thrill and is nontender. No splinter hemorrhages were noted. The lower extremities have evidence of minimal edema. No significant lesions or ulcers in the lower extremities Neuro: Awake alert oriented to person place and time. There are no acute new gross focal sensory motor deficits. - Labs CBC & Chem 7: 06/19/17 04:26 06/20/17 08:02 Labs: Abnormal Lab Results - Last 24 Hours (Table) 06/20/17 06/20/17 06/20/17 Range/Units 07:17 08:02 11:16 BUN 74 H (7-17) mg/dL Creatinine 5.20 H* (0.52-1.04) mg/dL Glucose 135 H (74-99) mg/dL POC Glucose (mg/dL) 135 H 139 H (75-99) mg/dL 06/20/17 06/20/17 Range/Units 16:38 20:40 BUN (7-17) mg/dL Creatinine (0.52-1.04) mg/dL Glucose (74-99) mg/dL POC Glucose (mg/dL) 106 H 175 H (75-99) mg/dL Microbiology - Last 24 Hours (Table) 06/17/17 11:10 Blood Culture Gram Stain - Final Blood Blood Culture - Final Enterococcus faecalis 06/17/17 05:44 Blood Culture Gram Stain - Final Blood Blood Culture - Final Enterococcus faecalis Laboratory Results WBC 5.9 k/uL (3.8-10.6) 06/19/17 04:26 RBC 3.06 m/uL (3.80-5.40) L 06/19/17 04:26 Hgb 10.7 gm/dL (11.4-16.0) L 06/19/17 04:26 Hct 34.0 % (34.0-46.0) 06/19/17 04:26 MCV 111.1 fL (80.0-100.0) H 06/19/17 04:26 MCH 35.1 pg (25.0-35.0) H 06/19/17 04:26 MCHC 31.6 g/dL (31.0-37.0) 06/19/17 04:26 RDW 15.7 % (11.5-15.5) H 06/19/17 04:26 Plt Count 110 k/uL (150-450) L 06/19/17 04:26 Neutrophils % 87 % 06/15/17 22:50 Neutrophils % (Manual) 69 % 06/19/17 04:26 Lymphocytes % 5 % 06/15/17 22:50 Lymphocytes % (Manual) 18 % 06/19/17 04:26 Monocytes % 6 % 06/15/17 22:50 Monocytes % (Manual) 11 % 06/19/17 04:26 Eosinophils % 0 % 06/15/17 22:50 Eosinophils % (Manual) 2 % 06/19/17 04:26 Basophils % 0 % 06/15/17 22:50 Basophils % (Manual) 2 % 06/18/17 05:19 Neutrophils # 5.1 k/uL (1.3-7.7) 06/15/17 22:50 Neutrophils # (Manual) 4.07 k/uL (1.3-7.7) 06/19/17 04:26 Lymphocytes # 0.3 k/uL (1.0-4.8) L 06/15/17 22:50 Lymphocytes # (Manual) 1.06 k/uL (1.0-4.8) 06/19/17 04:26 Monocytes # 0.4 k/uL (0-1.0) 06/15/17 22:50 Monocytes # (Manual) 0.65 k/uL (0-1.0) 06/19/17 04:26 Eosinophils # 0.0 k/uL (0-0.7) 06/15/17 22:50 Eosinophils # (Manual) 0.12 k/uL (0-0.7) 06/19/17 04:26 Basophils # 0.0 k/uL (0-0.2) 06/15/17 22:50 Basophils # (Manual) 0.08 k/uL (0-0.2) 06/18/17 05:19 Nucleated RBCs 0 /100 WBC (0-0) 06/19/17 04:26 Manual Slide Review Performed 06/19/17 04:26 Polychromasia Present 06/15/17 22:50 Hypochromasia Slight 06/19/17 04:26 Anisocytosis Slight 06/15/17 22:50 Macrocytosis Marked 06/19/17 04:26 PT 11.2 sec (9.0-12.0) 06/15/17 22:50 INR 1.2 (<1.2) H 06/15/17 22:50 APTT 23.3 sec (22.0-30.0) 06/15/17 22:50 Sodium 138 mmol/L (137-145) 06/20/17 08:02 Potassium 4.9 mmol/L (3.5-5.1) 06/20/17 08:02 Chloride 100 mmol/L (98-107) 06/20/17 08:02 Carbon Dioxide 24 mmol/L (22-30) 06/20/17 08:02 Anion Gap 14 mmol/L 06/20/17 08:02 BUN 74 mg/dL (7-17) H 06/20/17 08:02 Creatinine 5.20 mg/dL (0.52-1.04) H* 06/20/17 08:02 Est GFR (MDRD) Af Amer 10 (>60 ml/min/1.73 sqM) 06/20/17 08:02 Est GFR (MDRD) Non-Af 8 (>60 ml/min/1.73 sqM) 06/20/17 08:02 Glucose 135 mg/dL (74-99) H 06/20/17 08:02 POC Glucose (mg/dL) 175 mg/dL (75-99) H 06/20/17 20:40 POC Glu [employer] Coating Machine Tender ID Aurora Moya 06/20/17 20:40 Calcium 8.8 mg/dL (8.4-10.2) 06/20/17 08:02 Phosphorus 3.4 mg/dL (2.5-4.5) 06/15/17 22:50 Magnesium 2.0 mg/dL (1.6-2.3) 06/15/17 22:50 Iron 25 ug/dL (50-170) L 06/16/17 10:36 TIBC 198 ug/dL (228-460) L 06/16/17 10:36 Iron Saturation 12.63 (12.00-45.00) 06/16/17 10:36 Ferritin 2677.2 ng/mL (10.0-291.0) H 06/16/17 10:36 Total Bilirubin 0.5 mg/dL (0.2-1.3) 06/15/17 22:50 AST 191 U/L (14-36) H 06/15/17 22:50 ALT 139 U/L (9-52) H 06/15/17 22:50 Alkaline Phosphatase 59 U/L (38-126) 06/15/17 22:50 Total Creatine Kinase 150 U/L (30-135) H 06/16/17 10:36 CK-MB (CK-2) 3.0 ng/mL (0.0-2.4) H* 06/16/17 10:36 CK-MB (CK-2) Rel Index 2.0 06/16/17 10:36 Troponin I 0.935 ng/mL (0.000-0.034) H* 06/16/17 10:36 Total Protein 5.9 g/dL (6.3-8.2) L 06/15/17 22:50 Albumin 3.6 g/dL (3.5-5.0) 06/15/17 22:50 Triglycerides 103 mg/dL (<150) 06/17/17 05:44 Cholesterol 119 mg/dL (<200) 06/17/17 05:44 LDL Cholesterol, Calc 52 mg/dL (0-99) 06/17/17 05:44 HDL Cholesterol 46 mg/dL (40-60) 06/17/17 05:44 Urine Color Yellow 06/15/17 07:34 Urine Appearance Cloudy (Clear) H 06/15/17 07:34 Urine pH 5.0 (5.0-8.0) 06/15/17 07:34 Ur Specific [place] 1.021 (1.001-1.035) 06/15/17 07:34 Urine Protein Trace (Negative) H 06/15/17 07:34 Urine Glucose (UA) Negative (Negative) 06/15/17 07:34 Urine Ketones Negative (Negative) 06/15/17 07:34 Urine Blood Trace (Negative) H 06/15/17 07:34 Urine Nitrite Negative (Negative) 06/15/17 07:34 Urine Bilirubin 1+ (Negative) H 06/15/17 07:34 Urine Urobilinogen 2.0 mg/dL (<2.0) 06/15/17 07:34 Ur Leukocyte Esterase Large (Negative) H 06/15/17 07:34 Urine RBC 10 /hpf (0-5) H 06/15/17 07:34 Urine WBC 52 /hpf (0-5) H 06/15/17 07:34 Urine WBC Clumps Occasional /hpf (None) H 06/15/17 07:34 Ur Squamous Epith Cells 20 /hpf (0-4) H 06/15/17 07:34 Urine Bacteria Occasional /hpf (None) H 06/15/17 07:34 Urine Mucus Rare /hpf (None) H 06/15/17 07:34 Random Vancomycin 21.4 ug/mL 06/20/17 08:02 Microbiology 06/17/17 11:10 Blood Blood Culture Gram Stain - Final 06/17/17 11:10 Blood Blood Culture - Final Enterococcus faecalis 06/17/17 05:44 Blood Blood Culture Gram Stain - Final 06/17/17 05:44 Blood Blood Culture - Final Enterococcus faecalis 06/15/17 07:34 Urine,Voided Urine Culture - Final Klebsiella pneumoniae 06/16/17 14:06 Blood Blood Culture Gram Stain - Final 06/16/17 14:06 Blood Blood Culture - Final Enterococcus faecalis 06/17/17 11:10 Blood Blood Culture - Preliminary 06/17/17 05:44 Blood Blood Culture - Preliminary 06/15/17 22:50 Blood Blood Culture Gram Stain - Final 06/15/17 22:50 Blood Blood Culture - Final Enterococcus faecalis 06/16/17 14:06 Blood Blood Culture - Final 06/15/17 22:50 Blood Blood Culture - Final Assessment and Plan (1) End-stage renal disease on hemodialysis Current Visit: Yes Status: Acute Code(s): N18.6 - END STAGE RENAL DISEASE; Z99.2 - DEPENDENCE ON RENAL DIALYSIS SNOMED Code(s): 643075867 (2) Weakness Current Visit: Yes Status: Acute Code(s): R53.1 - WEAKNESS SNOMED Code(s) : 22653967 (3) Atrial fibrillation with rapid ventricular response Current Visit: Yes Status: Acute Code(s): I48.91 - UNSPECIFIED ATRIAL FIBRILLATION SNOMED Code(s): 143441563542350 (4) Enterococcal bacteremia Narrative/Plan: 87-year-old female has multiple medical troubles that include coronary disease diabetes mellitus type 2 and has end-stage renal disease on hemodialysis. Physical fistula to her left arm relates that over a year ago developed difficulty with the cellulitis to her arm and a PermCath was applied. She's insisted on utilization of a PermCath since that point in time and that it is not tender like her arm is and has had no troubles. However as she has been instructed from the dialysis center PermCath access is difficult and is often fraught with infection. She now is evidence of enterococcus bacteremia strictly related to infection from her PermCath. This is discussed with the utility bag assembler and the vascular surgeon. The patient will need the PermCath to be removed. She is very worried about this process in that last time she had a catheter removed who was very painful and she thought she was going to when it was removed. This is related to the vascular surgeon that she will need some type of sedation and local pain control to allow this to be removed. Because of all these issues the patient was asked contemplating whether she would have further hemodialysis. She over does relate up in the time that she became acutely ill she was active and interactive with her . Now that she's feeling better she seems to be reinvigorated about the process of continuing dialysis. Given her excellent mental status and her strong family support continue dialysis would be the most reasonable approach at this point in time. Certainly if she has any significant decline of her status then she may contemplate discontinuing dialysis at that time. As noted will have the current dialysis catheter removed. She will then continue antibiotic therapy at dialysis likely with vancomycin given the current data. June 18 2017 the patient is feeling better today. Is denying steady new difficulties except some pain in her neck that is improved with some muscle relaxant and pain medication Elquis is on hold her dialysis catheter removed on Monday. Vancomycin will continue and will need that for several weeks at dialysis after the catheter is removed. Surgeon is aware of the patient's great concerns by catheter removal regarding pain and discomfort. 06/19/2017 patient miserable will add lidoderm patch and hopefully will be able to obtain Dilaudid to help pain. Surgery tomorrow for catheter removal which will help resolve her sepsis. 06/20/2017 patient is considerably better today. Now that I wanted his become available. Dilaudid major improvement of her misery. As noted she is comfortable and pain-free this evening. She tolerated her hemodialysis via her fistula with no difficulties and she was quite shocked and pleased how well it went. We'll have the dialysis catheter removed in the morning. Once this is removed should then have the clearance of her enterococcus bacteremia is related to this catheter. We'll be planning a many week course of intravenous vancomycin after her dialysis at the dialysis center. Current Visit: Yes Status: Acute Code(s): R78.81 - BACTEREMIA; B95.2 - ENTEROCOCCUS THE CAUSE OF DISEASES CLASSIFIED ELSEWHERE SNOMED Code(s): 142343553264
[2017-06-20] MEDS ORDERED: ALPRAZolam 0.25 MG TAB PO PRN (23:28)
[2017-06-21] MEDS: HYDROmorphone 2 MG TAB PO PRN ×2 (05:07→09:00)
[2017-06-21 07:20] LABS: Glucose,Whole Blood 159 mg/dL (75-99)
[2017-06-21] MEDS ORDERED: LIDOCAINE 1% INJ 10MG/ML (20 ML MDV) SQ ONE (07:30)
[2017-06-21 08:10] LABS: Calcium 8.4 mg/dL (8.4-10.2); Potassium 4.6 mmol/L (3.5-5.1)
[2017-06-21] MEDS: INSULIN ASPART 100 UNIT/ML 1 ML 10 ML VIAL SQ SCH ×4 (08:19→21:39)
[2017-06-21] MEDS: INSULIN DETEMIR 100 UNIT/ML 10 ML VIAL SQ SCH (08:19)
[2017-06-21] MEDS: LOSARTAN 50 MG TAB PO SCH (08:20)
[2017-06-21] MEDS: ASPIRIN 325 MG TAB PO SCH (08:20)
[2017-06-21] MEDS: LIDOCAINE 5% PATCH TOPICAL SCH (08:20)
[2017-06-21] MEDS: METOPROLOL SUCCINATE (ER) 50 MG TAB.ER.24H PO SCH (08:20)
[2017-06-21] MEDS: CALCIUM ACETATE 667 MG CAP PO SCH ×3 (08:20→17:53)
[2017-06-21] MEDS: AMIODARONE 200 MG TAB PO SCH (08:20)
[2017-06-21] MEDS: ISOSORBIDE MONONITRATE ER 15 MG TAB PO SCH (08:20)
--- NOTE | 2017-06-21 10:31 | P.PN ---
Subjective Patient is seen in follow-up for end-stage renal disease. She is maintained on hemodialysis on a Monday schedule via a permacath. Patient does have a left upper extremity AV fistula which she has been refusing to use as she had cellulitis in the past and doesn't want to be poked regularly. Patient presented with hypotension which is now resolved. She continues to have pain in her neck. Her blood cultures are positive for group D enterococcus. Denies chest pain or shortness of breath. Vital signs are stable. General: The patient appeared well nourished and normally developed. HEENT: Head exam is unremarkable. Neck is without jugular venous distension. LUNGS: Lungs are clear to auscultation and percussion. Breath sounds decreased. HEART: Rate and Rhythm are regular. First and second heart sounds normal. No murmurs, rubs or gallops. ABDOMEN: Abdominal exam reveals normal bowel sounds. Non-tender and non- distended. No evidence of peritonitis. EXTREMITITES: No clubbing, cyanosis, or edema. Objective - Vital Signs Vital signs: Vital Signs Temp 97.1 F L 06/21/17 06:34 Pulse 71 06/21/17 08:00 Resp 16 06/21/17 08:00 BP 155/69 06/21/17 06:34 Pulse Ox 97 06/21/17 06:34 Intake & Output 06/20/17 06/21/17 06/21/17 18:59 06:59 18:59 Intake Total 950 Balance 950 Weight 70.5 kg Intake: Oral 950 Other: Voiding Method Toilet Toilet # Voids 1 1 - Labs CBC & Chem 7: 06/19/17 04:26 06/21/17 07:22 Labs: Abnormal Lab Results - Last 24 Hours (Table) 06/20/17 06/20/17 06/20/17 Range/Units 11:16 16:38 20:40 BUN (7-17) mg/dL Creatinine (0.52-1.04) mg/dL Glucose (74-99) mg/dL POC Glucose (mg/dL) 139 H 106 H 175 H (75-99) mg/dL 06/21/17 06/21/17 Range/Units 06:54 07:22 BUN 53 H (7-17) mg/dL Creatinine 4.38 H (0.52-1.04) mg/dL Glucose 180 H (74-99) mg/dL POC Glucose (mg/dL) 159 H (75-99) mg/dL Microbiology - Last 24 Hours (Table) 06/17/17 11:10 Blood Culture Gram Stain - Final Blood Blood Culture - Final Enterococcus faecalis 06/17/17 05:44 Blood Culture Gram Stain - Final Blood Blood Culture - Final Enterococcus faecalis Assessment and Plan Plan: Assessment: #1. End-stage renal disease maintained on hemodialysis on a Monday schedule. Permacath was discontinued this morning. The AV fistula was used yesterday and is functioning well. #2. Generalized weakness related to hypotension. Improved. #3. Hypotension related to antihypertensives as well as ultrafiltration. Orthostatics negative. Also component of bacteremia. Blood pressure stable. #4. Chronic kidney disease mineral bone disease maintained on PhosLo. #5. Hypertension with chronic kidney disease. Currently controlled. #6. Insulin-dependent diabetes mellitus. #7. History of A. fib maintained on Eliquis. #8. Anemia of chronic kidney disease. Iron deficiency noted. #9. Group D enterococcus bacteremia with source being the permacath. #10. Hyperkalemia secondary to chronic kidney disease. Improved with dialysis. #11. Neck pain. It appears to be a muscle spasm. Doubt meningitis but she is already on antibiotics. Doubt fracture. I did discuss with the primary team to consider a CT or an LP. Plan: Continue to hold home antihypertensives for systolic blood pressure less than 120. Maintain Aranesp. I will hold off on IV iron due to bacteremia. Antibiotics per infectious disease recommendations. Monitor vancomycin levels - target to 15. Continue Flexeril once daily as needed. Discontinued morphine and maintain Dilaudid 1 mg every 4 hours as needed for pain - pain is better controlled. Dialysis tomorrow per her outpatient schedule.
--- NOTE | 2017-06-21 10:35 | PCN ---
PROCEDURE NOTE PREOPERATIVE DIAGNOSIS: Acute renal failure with infected dialysis catheter. PROCEDURE: Removal of a dialysis catheter, right jugular approach. This patient was seen in his room. Right side of the chest, neck prepped and draped in a sterile manner; 1% lidocaine was injected at the site of the catheter. A small incision was made at the site of the catheter, went circumferentially around the catheter. Catheter was removed, pressure was held and a pursestring suture was placed using 3-0 nylon. Dressing applied. Patient tolerated the procedure well. MMODL / IJN: [id number] /
[2017-06-21] MEDS: HYDROmorphone 4 MG TABLET PO PRN ×2 (11:18→17:57)
[2017-06-21 11:29] LABS: Glucose,Whole Blood 182 mg/dL (75-99)
--- NOTE | 2017-06-21 11:47 | CT ---
EXAMINATION TYPE: CT soft tissue neck wo con DATE OF EXAM: 06/21/2017 HISTORY: Severe neck pain, entire neck COMPARISON: NONE CT DLP: 749 mGycm. Automated Exposure Control for Dose Reduction was Utilized. TECHNIQUE: CT scan of the neck is performed without intravenous contrast, axial images are obtained, coronal and sagittal reformatted images are reviewed. FINDINGS: Airway: No gross abnormality seen. Parotid/submandibular glands: No inflammation surrounding the parotid or submandibular glands. There is slight fatty atrophy of the parotid glands that is symmetric and age-related. Carotid/Vascular Structures: Evaluation is limited given lack of intravenous contrast, however calcif ic atheromatous changes are seen of the carotid bulbs with at least 60% stenosis on the right and 80% stenosis on the left both within short subcentimeter segments. Extensive calcific atheromatous frances es are seen of the thoracic aorta in the ostia of the great vessels as well as incidental note of a l eft subclavian stent. Osseous Structures: Osseous structures appear intact with moderate degenerative changes of the cervic al spine demonstrated as uncovertebral hypertrophy, intervertebral disc space during, endplate sclero sis, and facet arthropathy. Small posterior disc osteophyte complexes are seen at C3-C4, C5-C6 and C6 -C7 creating mild spinal canal stenosis at these levels. There is also mild left neural foraminal cony rowing at C4-C5 and on the right at C5-C6. Other: No adenopathy within the neck or supraclavicular regions. Post CABG changes are seen of the me diastinum. Left-sided cardiac pacemaker is device is partially seen. Benign calcified left pulmonary granuloma and minimal centrilobular emphysematous changes of the lungs are noted as well as multifoca l subsegmental atelectasis. IMPRESSION: 1. No acute findings within the soft tissues of the neck. 2. At least 80% stenosis of the left carotid bulb and 60% of the right carotid bulb. 3. Multilevel moderate degenerative changes of the cervical spine resulting in mild spinal canal sten osis at C3-C4, C5-C6 and C6-C7.
[2017-06-21] MEDS: HYDROcodone/APAP 5-325MG 1 EACH TAB PO PRN (15:02)
[2017-06-21] MEDS: CYCLOBENZAPRINE 5 MG TAB PO SCH ×2 (16:31→21:26)
[2017-06-21 16:54] LABS: Glucose,Whole Blood 194 mg/dL (75-99)
--- NOTE | 2017-06-21 17:34 | P.PN ---
Subjective Progress Note Date: 06/21/17 Progress Note Being Dictated for Dr. Salomon. Interval history: This is an 87-year-old female admitted with end-stage renal disease, maintained on dialysis via permacath, enterococcus bacteremia secondary to PermCath, and multiple other medical issues. Now agreeable to using her AV fistula. Anticoagulation remains on hold with PermCath removal scheduled for Monday. Maintained on IV antibiotics as per infectious disease. Afebrile. Telemetry reporting paced. Potassium 5.6, received continuous regular insulin, D50, Kayexalate. 06/20/2017 maintained on IV antibiotics as per infectious disease. Afebrile. Pain better controlled. Potassium normalized. Blood sugars controlled .VSS.Scheduled for a PermCath to be discontinued today and patient will begin using her AV fistula for hemodialysis as per nephrology. 06/21/17 maintained on IV antibiotics as per infectious disease. PermCath removed by vascular surgery this morning. Tolerated procedure well. Scheduled for hemodialysis tomorrow. Persistent right neck pain/stiffness. Ct ordered. Afebrile. Review of systems: CONSTITUTIONAL: No fever, no malaise, no fatigue. HEENT: No recent visual problems or hearing problems. Right neck pain/stiffness CARDIOVASCULAR: No chest pain, orthopnea, PND, no palpitations, no syncope. PULMONARY: No shortness of breath, no cough, no hemoptysis. GASTROINTESTINAL: No diarrhea, no nausea, no vomiting, no abdominal pain. Normoactive bowel sounds. NEUROLOGICAL: No headaches, no weakness, no numbness. HEMATOLOGICAL: Denies any bleeding or petechiae. GENITOURINARY: Denies any burning micturition, frequency, or urgency. MUSCULOSKELETAL/RHEUMATOLOGICAL: Denies any joint pain, swelling, or any muscle pain. ENDOCRINE: Denies any polyuria or polydipsia. PSYCHIATRIC: No anxiety, no depression The rest of the 14 point review of systems is negative Active Medications Acetaminophen (Tylenol Tab) 650 mg PO Q6HR PRN PRN Reason: Fever and/ or Mild Pain Last Admin: 06/17/17 06:24 Dose: 650 mg Hydrocodone Bitart/Acetaminophen ([place] 5-325) 1 each PO Q6HR PRN PRN Reason: Moderate Pain Last Admin: 06/21/17 15:02 Dose: 1 each Alprazolam (Xanax) 0.25 mg PO QID PRN PRN Reason: Anxiety Last Admin: 06/21/17 07:32 Dose: 0.25 mg Amiodarone HCl (Cordarone) 200 mg PO DAILY [facility] Last Admin: 06/21/17 08:20 Dose: 200 mg Aspirin (Aspirin) 325 mg PO DAILY [facility] Last Admin: 06/21/17 08:20 Dose: 325 mg Atorvastatin Calcium (Lipitor) 80 mg PO HS [facility] Last Admin: 06/20/17 20:45 Dose: 80 mg Calcium Acetate (Phoslo) 667 mg PO TID-W/MEALS [facility] Last Admin: 06/21/17 13:00 Dose: 667 mg Cyclobenzaprine HCl (Flexeril) 5 mg PO TID [facility] Last Admin: 06/21/17 16:31 Dose: 5 mg Darbepoetin [place] (Aranesp) 40 mcg SQ Q7D [facility] Last Admin: 06/17/17 12:17 Dose: 40 mcg Fentanyl (Duragesic 50mcg/Hr Patch) 1 patch TRANSDERM Q72H [facility] Last Admin: 06/20/17 20:43 Dose: 1 patch Hydromorphone HCl (Dilaudid) 4 mg PO Q3HR PRN PRN Reason: Pain Last Admin: 06/21/17 11:18 Dose: 4 mg Hydromorphone HCl (Dilaudid) 2 mg PO Q3HR PRN PRN Reason: Pain Last Admin: 06/21/17 09:00 Dose: 2 mg Insulin Aspart (Novolog) 0 unit SQ [facility] PRN Reason: Protocol Last Admin: 06/21/17 13:00 Dose: 2 unit Insulin Detemir (Levemir) 20 unit SQ [facility] Last Admin: 06/21/17 08:19 Dose: 20 unit Isosorbide Mononitrate (Imdur) 15 mg PO QAM [facility] Last Admin: 06/21/17 08:20 Dose: 15 mg Lidocaine (Lidoderm) 1 patch TOPICAL DAILY [facility] Last Admin: 06/21/17 08:20 Dose: Not Given Losartan Potassium (Cozaar) 50 mg PO DAILY [facility] Last Admin: 06/21/17 08:20 Dose: 50 mg Metoprolol Succinate (Toprol Xl) 50 mg PO QAM [facility] Last Admin: 06/21/17 08:20 Dose: 50 mg Miscellaneous Information (Pharmacy To Dose Iv Vancomycin) 1 each MISCELLANE DIRECTED PRN PRN Reason: Per Protocol Nitroglycerin (Nitrostat) 0.4 mg SUBLINGUAL Q5M PRN PRN Reason: Chest Pain Zolpidem Tartrate (Ambien) 10 mg PO HS PRN PRN Reason: Insomnia Last Admin: 06/20/17 21:36 Dose: 10 mg Objective - Vital Signs Vital signs: Vital Signs Temp 97.1 F L 06/21/17 06:34 Pulse 71 06/21/17 08:00 Resp 16 06/21/17 08:00 BP 155/69 06/21/17 06:34 Pulse Ox 97 06/21/17 06:34 Intake & Output 06/20/17 06/21/17 06/21/17 18:59 06:59 18:59 Intake Total 950 Balance 950 Weight 70.5 kg Intake: Oral 950 Other: Voiding Method Toilet Toilet # Voids 1 1 - Exam PHYSICAL EXAM: VITAL SIGNS: As above GENERAL: Sitting up in bed, no acute distress HEENT: Conjunctivae normal. eyes normal. Oral mucosa moist NECK: No JVD. No thyroid enlargement. CARDIOVASCULAR: S1, S2 muffled. No murmur RESPIRATION: Breath sounds diminished in the bases. No rhonchi or crackles. ABDOMEN: Soft, nontender . No guarding. no masses palpable. Positive Bowel sounds. LEGS: No edema. no swelling. PSYCHIATRY: Alert and oriented -3, mood and affect normal. NERVOUS SYSTEM: Cranial N 2-12 grossly normal. Moves all 4 limbs. Diffuse weakness No focal deficits. Skin: no ulcer no rash Joints: No active swelling. No inflammation. Lymphatic system. No LN neck axilla or groin. Microbiology 06/15/17 07:34 Urine,Voided Urine Culture - Final Klebsiella pneumoniae 06/16/17 14:06 Blood Blood Culture Gram Stain - Final 06/16/17 14:06 Blood Blood Culture - Final Enterococcus faecalis 06/17/17 11:10 Blood Blood Culture Gram Stain - Preliminary 06/17/17 11:10 Blood Blood Culture - Preliminary Group D Enterococcus 06/17/17 05:44 Blood Blood Culture Gram Stain - Preliminary 06/17/17 05:44 Blood Blood Culture - Preliminary Group D Enterococcus 06/17/17 11:10 Blood Blood Culture - Preliminary 06/17/17 05:44 Blood Blood Culture - Preliminary 06/15/17 22:50 Blood Blood Culture Gram Stain - Final 06/15/17 22:50 Blood Blood Culture - Final Enterococcus faecalis 06/16/17 14:06 Blood Blood Culture - Final 06/15/17 22:50 Blood Blood Culture - Final - Labs CBC & Chem 7: 06/19/17 04:26 06/21/17 07:22 Labs: Abnormal Lab Results - Last 24 Hours (Table) 06/20/17 06/20/17 06/20/17 Range/Units 11:16 16:38 20:40 BUN (7-17) mg/dL Creatinine (0.52-1.04) mg/dL Glucose (74-99) mg/dL POC Glucose (mg/dL) 139 H 106 H 175 H (75-99) mg/dL 06/21/17 06/21/17 Range/Units 06:54 07:22 BUN 53 H (7-17) mg/dL Creatinine 4.38 H (0.52-1.04) mg/dL Glucose 180 H (74-99) mg/dL POC Glucose (mg/dL) 159 H (75-99) mg/dL Microbiology - Last 24 Hours (Table) 06/17/17 11:10 Blood Culture Gram Stain - Final Blood Blood Culture - Final Enterococcus faecalis 06/17/17 05:44 Blood Culture Gram Stain - Final Blood Blood Culture - Final Enterococcus faecalis Assessment and Plan Assessment: 1. End-stage renal disease, maintained on dialysis via PermCath, agreeable to use AV fistula 2. Group D Enterococcus bacteremia, suspected source PermCath, removal of pending 3. Atrial fibrillation with RVR 4. Weakness, medical debility secondary to hypotension, improved 5. Elevated troponin, acute coronary syndrome has been ruled out 6.CAD 7. Anemia of chronic kidney disease, iron deficiency Plan: Continue on current medication regime , Flexeril, monitoring and symptomatic treatment. CT ordered regarding neck stiffness,pending. Ortho-Spine surgery consulted. Pain management. Repeat blood cultures ordered post PermCath DC. Antibiotics as per infectious disease .Further recommendations to follow. The impression and plan of care has been dictated as directed. : I performed a history and examination of this patient, discussed the same with the dictator. I agree with the dictator's note ,documented as a scribe. Any additional findings or plans will be noted.
--- NOTE | 2017-06-21 18:43 | P.CNOR ---
History of Present Illness - [facility] Consult date: 06/21/17 Requesting physician: Siobhan Salomon Consult reason: neck pain History of present illness: Patient is a very pleasant 87-year-old female who is seen and examined at bedside for further evaluation after consultation was placed for severe cervical pain. She is seen with her and son at the bedside. Patient states she has had neck pain over the past week without injury. She was admitted to the hospital on 06/15/2017. She states her cervical pain is continued to worsen since that time. She states her pain is most severe on the right lateral posterior cervical spine extending up the back of the neck to the occiput. She has pain in the left side as well. She has significant difficulty with range of motion of her cervical spine due to the pain. She denies any upper extremity radiculopathy bilaterally. She admits to generalized weakness of both the upper extremities and lower extremities. She states she has not been out of bed frequently and has not been performing any significant active activities since being admitted to hospital. She originally presented to the emergency department for significant and progressive weakness for approximately one week. Patient is known to undergo dialysis 3 times per week and she states the bedside she did undergo dialysis today. Patient is known have end-stage renal disease. During this admission she was found to have an infected dialysis catheter which was removed by Dr. Trevino without difficulty. He states patient is scheduled to go to rehabilitation. Patient does not feel given her current symptoms she'll be able to tolerate physical therapy. She has not had recent treatment in regards her cervical spine. She has been using a pillow for some comfort. She has been receiving Flexeril 5 mg once per day, [place], and Dilaudid as prescribed as needed for some control her symptoms. Given her significant symptoms, a CT of the soft tissue the neck was performed which did show evidence of cervical degenerative disc disease with mild central canal stenosis without evidence of acute findings. Family states upon discharge patient is planned to be discharged to rehabilitation facility in [place], [place]. Patient was also found to have positive blood cultures on this admission. Past Medical History Past Medical History: Atrial Fibrillation, Heart Failure, CVA/TIA, Diabetes Mellitus, GERD/Reflux, Hypertension, Renal Disease Additional Past Medical History / Comment(s): dialysis, leaky mitral valve, CHF History of Any Multi-Drug Resistant Organisms: None Reported Past Surgical History: Coronary Bypass/CABG, Heart Catheterization With Stent, Pacemaker Additional Past Surgical History / Comment(s): hx GI Bleed, several colonoscopies Past Anesthesia/Blood Transfusion Reactions: No Reported Reaction Date of Last Stent Placement:: n/a Type of Cardiac Device: Permanent Pacemaker Device Placement Date:: 1999 Past Psychological History: No Psychological Hx Reported Additional Psychological History / Comment(s): to her very supportive . 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 No travel history. Winter in [place]. No animals in the home. No tobacco or alcohol use Smoking Status: Former smoker Past Alcohol Use History: None Reported Past Drug Use History: None Reported - Past Family History Father Family Medical History: Coronary Artery Disease (CAD) Brother(s) Family Medical History: Coronary Artery Disease (CAD) Sister(s) Family Medical History: CVA/TIA Medications and Allergies Home Medications Medication Instructions Recorded Confirmed Type Amiodarone [Cordarone] 200 mg PO DAILY 12/03/16 06/15/17 History Atorvastatin [Lipitor] 80 mg PO HS 12/03/16 06/15/17 History Calcium Acetate [PhosLo] 667 mg PO TID@0800,1400,1800 12/03/16 06/15/17 History Folic Acid-Vit B Complex-Vit C 1 mg PO HS 12/03/16 06/15/17 History [Nephrocaps] Furosemide [Lasix] 80 mg PO BID@0800,1400 12/03/16 06/15/17 History INSULIN LISPRO (humaLOG) [humaLOG] See Protocol SQ BID 12/03/16 06/15/17 History Insulin Glargine [Lantus] 20 unit SQ QAM 12/03/16 06/15/17 History Isosorbide Mononitrate ER [Imdur] 15 mg PO QAM 12/03/16 06/15/17 History Metoprolol Succinate (ER) [Toprol 50 mg PO QAM 12/03/16 06/15/17 History XL] Omeprazole 40 mg PO BID@0800,1800 12/03/16 06/15/17 History fentaNYL 50MCG/HR PATCH [Duragesic 1 patch TRANSDERM Q72H 12/03/16 06/15/17 History 50MCG/HR] Apixaban [Eliquis] 2.5 mg PO BID@0800,2200 06/15/17 06/15/17 History Levothyroxine Sodium [Synthroid] 50 mcg PO DAILY 06/15/17 06/15/17 History Losartan Potassium 50 mg PO DAILY 06/15/17 06/15/17 History Allergies Allergy/AdvReac Type Severity Reaction Status Date / Time Iodinated Contrast- Oral and AdvReac Severe Compromised Verified 06/15/17 22:44 IV Dye Kidney [Iodinated Contrast Media - Function/Dialysis Oral and] Physical Examination Physical exam: Patient is awake, alert, and oriented 3 Vital signs stable Good chest excursion with deep inspiration and expiration Examination of the cervical spine reveals skin is intact with no abrasions, lacerations, or bruises; no erythema, purulence or signs of infection Significantly reduced range of motion of the cervical spine with flexion, extension, and bilateral rotation due to significant pain Significant pain with even light palpation over the posterior cervical spine and paraspinals Maintenance Mechanic Helper strength, thumb strength, interosseous strength, biceps strength, triceps strength, and shoulder strength positive sustained bilaterally Upper extremity strength positive sustained a generally weak throughout range of motion bilaterally No upper extremity hyperreflexia bilaterally Evidence of swelling of the left upper extremity status post dialysis through left upper extremity Hoffmans sign negative upper extremity bilaterally Results Pertinent studies: Soft tissue neck CT: No acute findings within the soft tissues of the neck; multilevel cervical degenerative disc disease resulting in mild spinal canal stenosis at C3-4, C5-6, and C6-7; at least 80% stenosis of the left carotid bulb and 60% stenosis of the right carotid bulb - Labs Labs: Abnormal Lab Results - Last 24 Hours (Table) 06/20/17 06/21/17 06/21/17 Range/Units 20:40 06:54 07:22 BUN 53 H (7-17) mg/dL Creatinine 4.38 H (0.52-1.04) mg/dL Glucose 180 H (74-99) mg/dL POC Glucose (mg/dL) 175 H 159 H (75-99) mg/dL 06/21/17 06/21/17 Range/Units 11:26 16:51 BUN (7-17) mg/dL Creatinine (0.52-1.04) mg/dL Glucose (74-99) mg/dL POC Glucose (mg/dL) 182 H 194 H (75-99) mg/dL H & H 06/15/17 06/18/17 06/19/17 Range/Units 22:50 05:19 04:26 Hgb 9.7 L 9.0 L 10.7 L (11.4-16.0) gm/dL Hct 29.9 L 29.6 L 34.0 (34.0-46.0) % Coagulation 06/15/17 Range/Units 22:50 INR 1.2 H (<1.2) Result Diagrams: 06/19/17 04:26 06/21/17 07:22 Assessment and Plan Assessment: Assessment: Acute severe cervical pain Cervical degenerative disc disease with spinal canal stenosis at C3-4, C5-6, and C6-7 End-stage renal disease on hemodialysis Positive blood cultures for group D enterococcus (1) Cervical pain Current Visit: Yes Status: Acute Code(s): M54.2 - CERVICALGIA SNOMED Code( s): 00007212 (2) Degenerative disc disease, cervical Current Visit: Yes Status: Acute Code(s): M50.30 - OTHER CERVICAL DISC DEGENERATION, UNSP CERVICAL REGION SNOMED Code(s): 21760717 (3) Cervical spinal stenosis Current Visit: Yes Status: Acute Code(s): M48.02 - SPINAL STENOSIS, CERVICAL REGION SNOMED Code(s): 99757876 (4) End-stage renal disease on hemodialysis Current Visit: Yes Status: Acute Code(s): N18.6 - END STAGE RENAL DISEASE; Z99.2 - DEPENDENCE ON RENAL DIALYSIS SNOMED Code(s): 923878551 (5) Enterococcal bacteremia Current Visit: Yes Status: Acute Code(s): R78.81 - BACTEREMIA; B95.2 - ENTEROCOCCUS THE CAUSE OF DISEASES CLASSIFIED ELSEWHERE SNOMED Code(s): 966302188152 (6) Weakness Current Visit: Yes Status: Acute Code(s): R53.1 - WEAKNESS SNOMED Code(s) : 34733435 Plan: Plan: After reviewing imaging, further discussion with Dr. Preston Adam, physical examination of the patient, and discussion with the patient and her family, we are not currently planning for acute surgical intervention in regards to her cervical spine. She does have some generalized weakness in the bilateral upper and lower extremities that she feels is worsening but she has not performed any significant regular activities of daily living since her admittance to the hospital 6 days ago. She denies any upper extremity radiculopathy symptoms. She does have significant and debilitating cervical pain without injury. She was found to have degenerative changes at cervical spine without acute changes. At this time we will plan to increase Flexeril 5 mg to 3 times a day and write a prescription for a soft cervical collar which she may wear for comfort and support of her cervical spine as needed. We will also plan to consult with pain management for further evaluation and to discuss possible treatment options including the possibility of injections. Patient has been recently diagnosed with positive blood cultures with group D enterococcus. It will be up to pain management to determine and appropriate plan of care for them proceeding forward. We do not feel she is unstable from a cervical standpoint and will be cleared for discharge once cleared by other providers. 2. Patient will continue to be seen by medicine, infectious disease, cardiology , nephrology, and all other medical providers. 3. From an orthopedic spine standpoint, patient is clear for discharge to rehabilitation facility once cleared by all other medical providers. 4. Following discharge, patient may plan to follow-up with Cezar Polanco PA-C or Dr. Preston Adam at [facility] in approximately 2-3 weeks for further evaluation 5. Patient has been discussed in detail with Dr. Preston Adam and he agrees with this plan Time with Patient: Greater than 30
[2017-06-21 20:53] LABS: Glucose,Whole Blood 204 mg/dL (75-99)
[2017-06-21] MEDS: ATORVASTATIN 80 MG TAB PO SCH (21:26)
[2017-06-21] MEDS: ZOLPIDEM 10 MG TAB PO PRN (21:44)
[2017-06-22] MEDS: HYDROcodone/APAP 5-325MG 1 EACH TAB PO PRN ×2 (04:49→12:48)
[2017-06-22 07:31] LABS: Glucose,Whole Blood 267 mg/dL (75-99)
[2017-06-22] MEDS: METOPROLOL SUCCINATE (ER) 50 MG TAB.ER.24H PO SCH (07:52)
[2017-06-22] MEDS: ASPIRIN 325 MG TAB PO SCH (07:52)
[2017-06-22] MEDS: AMIODARONE 200 MG TAB PO SCH (07:52)
[2017-06-22] MEDS: ISOSORBIDE MONONITRATE ER 15 MG TAB PO SCH (07:52)
[2017-06-22] MEDS: LOSARTAN 50 MG TAB PO SCH (07:52)
[2017-06-22] MEDS: CALCIUM ACETATE 667 MG CAP PO SCH ×3 (07:52→16:52)
[2017-06-22] MEDS: HYDROmorphone 4 MG TABLET PO PRN ×5 (07:52→20:51)
[2017-06-22] MEDS: CYCLOBENZAPRINE 5 MG TAB PO SCH ×3 (07:52→21:01)
[2017-06-22] MEDS: LIDOCAINE 5% PATCH TOPICAL SCH (07:53)
[2017-06-22] MEDS: INSULIN ASPART 100 UNIT/ML 1 ML 10 ML VIAL SQ SCH ×4 (07:53→21:34)
[2017-06-22] MEDS: INSULIN DETEMIR 100 UNIT/ML 10 ML VIAL SQ SCH (07:53)
[2017-06-22 09:08] LABS: Calcium 8.4 mg/dL (8.4-10.2); Potassium 4.7 mmol/L (3.5-5.1)
[2017-06-22 09:13] LABS: Vancomycin,Random 25.5 ug/mL
--- NOTE | 2017-06-22 10:18 | P.PN ---
Subjective Patient is seen in follow-up for end-stage renal disease. She is maintained on hemodialysis on a Monday schedule via a permacath. Patient does have a left upper extremity AV fistula which she had been refusing to use as she had cellulitis in the past and didn't want to be poked regularly. Patient presented with hypotension which is now resolved. She continues to have pain in her neck but is improved. Her blood cultures are positive for group D enterococcus. Denies chest pain or shortness of breath. P-cath has been discontinued and AVF is being used now for HD. Vital signs are stable. General: The patient appeared well nourished and normally developed. HEENT: Head exam is unremarkable. Neck is without jugular venous distension. LUNGS: Lungs are clear to auscultation and percussion. Breath sounds decreased. HEART: Rate and Rhythm are regular. First and second heart sounds normal. No murmurs, rubs or gallops. ABDOMEN: Abdominal exam reveals normal bowel sounds. Non-tender and non- distended. No evidence of peritonitis. EXTREMITITES: No clubbing, cyanosis, or edema. Objective - Vital Signs Vital signs: Vital Signs Temp 97.2 F L 06/22/17 07:00 Pulse 69 06/22/17 07:00 Resp 16 06/22/17 07:00 BP 136/52 06/22/17 07:00 Pulse Ox 100 06/22/17 07:00 Intake & Output 06/21/17 06/22/17 06/22/17 18:59 06:59 18:59 Intake Total 340 300 Balance 340 300 Weight 68 kg Intake: Oral 340 300 Other: Voiding Method Toilet Toilet Toilet # Voids 0 - Labs CBC & Chem 7: 06/19/17 04:26 06/22/17 07:05 Labs: Abnormal Lab Results - Last 24 Hours (Table) 06/21/17 06/21/17 06/21/17 Range/Units 11:26 16:51 20:38 Sodium (137-145) mmol/L BUN (7-17) mg/dL Creatinine (0.52-1.04) mg/dL Glucose (74-99) mg/dL POC Glucose (mg/dL) 182 H 194 H 204 H (75-99) mg/dL 06/22/17 06/22/17 Range/Units 07:05 07:27 Sodium 136 L (137-145) mmol/L BUN 65 H (7-17) mg/dL Creatinine 5.70 H* (0.52-1.04) mg/dL Glucose 135 H (74-99) mg/dL POC Glucose (mg/dL) 267 H (75-99) mg/dL Assessment and Plan Plan: Assessment: #1. End-stage renal disease maintained on hemodialysis on a Monday schedule. Permacath was discontinued on 06/21/17. The AV fistula is used and is functioning well. Seen while undergoing HD. #2. Generalized weakness related to hypotension. Improved. #3. Hypotension related to antihypertensives as well as ultrafiltration. Orthostatics negative. Also component of bacteremia. Blood pressure stable. #4. Chronic kidney disease mineral bone disease maintained on PhosLo. #5. Hypertension with chronic kidney disease. Currently controlled. #6. Insulin-dependent diabetes mellitus. #7. History of A. fib maintained on Eliquis. #8. Anemia of chronic kidney disease. Iron deficiency noted. #9. Group D enterococcus bacteremia with source being the permacath. #10. Hyperkalemia secondary to chronic kidney disease. Improved with dialysis. #11. 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 Orthopedic surgery following. Plan: Continue to hold home antihypertensives for systolic blood pressure less than 120. Maintain Aranesp. I will hold off on IV iron due to bacteremia. Antibiotics per infectious disease recommendations. Monitor vancomycin levels - target to 15. Continue Flexeril once daily as needed. Discontinued morphine and maintain Dilaudid 1 mg every 4 hours as needed for pain - pain is better controlled. Next HD Monday per her outpatient schedule.
[2017-06-22 11:58] LABS: Glucose,Whole Blood 106 mg/dL (75-99)
[2017-06-22 12:33] LABS: Basophils % (A) 0 %; Eosinophils # (A) 0.2 k/uL (0-0.7); Eosinophils % (A) 3 %; HCT 30.6 % (34.0-46.0); HGB 9.6 gm/dL (11.4-16.0); Hypochromasia Slight; Lymphocytes % (A) 20 %; MCH 34.7 pg (25.0-35.0); MCHC 31.3 g/dL (31.0-37.0); MCV 110.8 fL (80.0-100.0); Macrocytosis Marked; Mean Platelet Volume 8.4; Monocytes # (A) 0.3 k/uL (0-1.0); Monocytes % (A) 7 %; Neutrophils # (A) 3.3 k/uL (1.3-7.7); Neutrophils % (A) 67 %; Platelet Count 141 k/uL (150-450); RBC 2.76 m/uL (3.80-5.40); RDW 15.8 % (11.5-15.5); WBC 4.9 k/uL (3.8-10.6)
--- NOTE | 2017-06-22 17:03 | P.PN ---
Subjective Progress Note Date: 06/22/17 Progress Note Being Dictated for Dr. Salomon. Interval history: This is an 87-year-old female admitted with end-stage renal disease, maintained on dialysis via permacath, enterococcus bacteremia secondary to PermCath, and multiple other medical issues. Now agreeable to using her AV fistula. Anticoagulation remains on hold with PermCath removal scheduled for Monday. Maintained on IV antibiotics as per infectious disease. Afebrile. Telemetry reporting paced. Potassium 5.6, received continuous regular insulin, D50, Kayexalate. 06/20/2017 maintained on IV antibiotics as per infectious disease. Afebrile. Pain better controlled. Potassium normalized. Blood sugars controlled .VSS.Scheduled for a PermCath to be discontinued today and patient will begin using her AV fistula for hemodialysis as per nephrology. 06/21/17 maintained on IV antibiotics as per infectious disease. PermCath removed by vascular surgery this morning. Tolerated procedure well. Scheduled for hemodialysis tomorrow. Persistent right neck pain/stiffness. Ct ordered. Afebrile. Review of systems: CONSTITUTIONAL: No fever, no malaise, no fatigue. HEENT: No recent visual problems or hearing problems. Right neck pain/stiffness CARDIOVASCULAR: No chest pain, orthopnea, PND, no palpitations, no syncope. PULMONARY: No shortness of breath, no cough, no hemoptysis. GASTROINTESTINAL: No diarrhea, no nausea, no vomiting, no abdominal pain. Normoactive bowel sounds. NEUROLOGICAL: No headaches, no weakness, no numbness. HEMATOLOGICAL: Denies any bleeding or petechiae. GENITOURINARY: Denies any burning micturition, frequency, or urgency. MUSCULOSKELETAL/RHEUMATOLOGICAL: Denies any joint pain, swelling, or any muscle pain. ENDOCRINE: Denies any polyuria or polydipsia. PSYCHIATRIC: No anxiety, no depression The rest of the 14 point review of systems is negative Active Medications Acetaminophen (Tylenol Tab) 650 mg PO Q6HR PRN PRN Reason: Fever and/ or Mild Pain Last Admin: 06/17/17 06:24 Dose: 650 mg Hydrocodone Bitart/Acetaminophen ([place] 5-325) 1 each PO Q6HR PRN PRN Reason: Moderate Pain Last Admin: 06/21/17 15:02 Dose: 1 each Alprazolam (Xanax) 0.25 mg PO QID PRN PRN Reason: Anxiety Last Admin: 06/21/17 07:32 Dose: 0.25 mg Amiodarone HCl (Cordarone) 200 mg PO DAILY [facility] Last Admin: 06/21/17 08:20 Dose: 200 mg Aspirin (Aspirin) 325 mg PO DAILY [facility] Last Admin: 06/21/17 08:20 Dose: 325 mg Atorvastatin Calcium (Lipitor) 80 mg PO HS [facility] Last Admin: 06/20/17 20:45 Dose: 80 mg Calcium Acetate (Phoslo) 667 mg PO TID-W/MEALS [facility] Last Admin: 06/21/17 13:00 Dose: 667 mg Cyclobenzaprine HCl (Flexeril) 5 mg PO TID [facility] Last Admin: 06/21/17 16:31 Dose: 5 mg Darbepoetin Liborio (Aranesp) 40 mcg SQ Q7D [facility] Last Admin: 06/17/17 12:17 Dose: 40 mcg Fentanyl (Duragesic 50mcg/Hr Patch) 1 patch TRANSDERM Q72H [facility] Last Admin: 06/20/17 20:43 Dose: 1 patch Hydromorphone HCl (Dilaudid) 4 mg PO Q3HR PRN PRN Reason: Pain Last Admin: 06/21/17 11:18 Dose: 4 mg Hydromorphone HCl (Dilaudid) 2 mg PO Q3HR PRN PRN Reason: Pain Last Admin: 06/21/17 09:00 Dose: 2 mg Insulin Aspart (Novolog) 0 unit SQ [facility] PRN Reason: Protocol Last Admin: 06/21/17 13:00 Dose: 2 unit Insulin Detemir (Levemir) 20 unit SQ [facility] Last Admin: 06/21/17 08:19 Dose: 20 unit Isosorbide Mononitrate (Imdur) 15 mg PO QAM [facility] Last Admin: 06/21/17 08:20 Dose: 15 mg Lidocaine (Lidoderm) 1 patch TOPICAL DAILY [facility] Last Admin: 06/21/17 08:20 Dose: Not Given Losartan Potassium (Cozaar) 50 mg PO DAILY [facility] Last Admin: 06/21/17 08:20 Dose: 50 mg Metoprolol Succinate (Toprol Xl) 50 mg PO QAM [facility] Last Admin: 06/21/17 08:20 Dose: 50 mg Miscellaneous Information (Pharmacy To Dose Iv Vancomycin) 1 each MISCELLANE DIRECTED PRN PRN Reason: Per Protocol Nitroglycerin (Nitrostat) 0.4 mg SUBLINGUAL Q5M PRN PRN Reason: Chest Pain Zolpidem Tartrate (Ambien) 10 mg PO HS PRN PRN Reason: Insomnia Last Admin: 06/20/17 21:36 Dose: 10 mg 06/22/17 evaluated by orthopedic spine last night, Flexeril frequency increased, with improvement in neck pain . Further evaluation and recommendations/ from pain management services pending. Maintained on IV antibiotics as per infectious disease. Blood cultures positive for group D enterococcus with repeat blood cultures obtained post permacath being discontinued, results pending. Hemodialysis today. Denies chest pain, palpitations or increased shortness of breath. Objective - Vital Signs Vital signs: Vital Signs Temp 97.2 F L 06/22/17 15:00 Pulse 70 06/22/17 15:00 Resp 16 06/22/17 15:00 BP 120/57 06/22/17 15:00 Pulse Ox 100 06/22/17 15:00 Intake & Output 06/21/17 06/22/17 06/22/17 18:59 06:59 18:59 Intake Total 340 300 Balance 340 300 Weight 68 kg Intake: Oral 340 300 Other: Voiding Method Toilet Toilet Toilet # Voids 0 # Bowel Movements 0 - Exam PHYSICAL EXAM: VITAL SIGNS: As above GENERAL: Sitting up in bed, no acute distress HEENT: Conjunctivae normal. eyes normal. Oral mucosa moist NECK: No JVD. No thyroid enlargement. CARDIOVASCULAR: S1, S2 muffled. No murmur RESPIRATION: Breath sounds diminished in the bases. No rhonchi or crackles. No wheezing ABDOMEN: Soft, nontender . No guarding. no masses palpable. Positive Bowel sounds. LEGS: No edema. no swelling. PSYCHIATRY: Alert and oriented -3, mood and affect normal. NERVOUS SYSTEM: Cranial N 2-12 grossly normal. Moves all 4 limbs. Diffuse weakness No focal deficits. Skin: no ulcer no rash Joints: No active swelling. No inflammation. Lymphatic system. No LN neck axilla or groin. Microbiology 06/15/17 07:34 Urine,Voided Urine Culture - Final Klebsiella pneumoniae 06/16/17 14:06 Blood Blood Culture Gram Stain - Final 06/16/17 14:06 Blood Blood Culture - Final Enterococcus faecalis 06/17/17 11:10 Blood Blood Culture Gram Stain - Preliminary 06/17/17 11:10 Blood Blood Culture - Preliminary Group D Enterococcus 06/17/17 05:44 Blood Blood Culture Gram Stain - Preliminary 06/17/17 05:44 Blood Blood Culture - Preliminary Group D Enterococcus 06/17/17 11:10 Blood Blood Culture - Preliminary 06/17/17 05:44 Blood Blood Culture - Preliminary 06/15/17 22:50 Blood Blood Culture Gram Stain - Final 06/15/17 22:50 Blood Blood Culture - Final Enterococcus faecalis 06/16/17 14:06 Blood Blood Culture - Final 06/15/17 22:50 Blood Blood Culture - Final - Labs CBC & Chem 7: 06/22/17 07:05 06/22/17 07:05 Labs: Abnormal Lab Results - Last 24 Hours (Table) 06/21/17 06/21/17 06/22/17 Range/Units 16:51 20:38 07:05 RBC (3.80-5.40) m/uL Hgb (11.4-16.0) gm/dL Hct (34.0-46.0) % MCV (80.0-100.0) fL RDW (11.5-15.5) % Plt Count (150-450) k/uL Sodium 136 L (137-145) mmol/L BUN 65 H (7-17) mg/dL Creatinine 5.70 H* (0.52-1.04) mg/dL Glucose 135 H (74-99) mg/dL POC Glucose (mg/dL) 194 H 204 H (75-99) mg/dL 06/22/17 06/22/17 06/22/17 Range/Units 07:05 07:27 11:53 RBC 2.76 L (3.80-5.40) m/uL Hgb 9.6 L (11.4-16.0) gm/dL Hct 30.6 L (34.0-46.0) % MCV 110.8 H (80.0-100.0) fL RDW 15.8 H (11.5-15.5) % Plt Count 141 L (150-450) k/uL Sodium (137-145) mmol/L BUN (7-17) mg/dL Creatinine (0.52-1.04) mg/dL Glucose (74-99) mg/dL POC Glucose (mg/dL) 267 H 106 H (75-99) mg/dL Microbiology - Last 24 Hours (Table) 06/21/17 10:20 Blood Culture - Preliminary Blood No Growth after 24 hours 06/17/17 05:44 Blood Culture - Final Blood 06/17/17 11:10 Blood Culture - Final Blood Assessment and Plan Assessment: 1. End-stage renal disease, maintained on dialysis via PermCath, agreeable to use AV fistula 2. Group D Enterococcus bacteremia, suspected source PermCath; PermCath discontinued-repeat blood cultures in progress. 3. Atrial fibrillation with RVR 4. Weakness, medical debility secondary to hypotension, improved 5. Elevated troponin, acute coronary syndrome has been ruled out 6.CAD 7. Anemia of chronic kidney disease, iron deficiency 8. Neck pain; CT reporting nonacute, 80% stenosis of the left carotid bulb and 60% of the right carotid bulb, multilevel moderate degenerative cervical spine changes resulting in mild spinal canal stenosis at C3-C4, C5-C6 and C6-C7. Plan: Continue on current medication regime , Flexeril, monitoring and symptomatic treatment. Pain management as per Ortho-Spine surgery and pain management services. Repeat blood cultures ordered post PermCath DC in progress. Antibiotics as per infectious disease .hemodialysis as per nephrology. discharge planning in progress for [facility] pending clear blood cultures .Further recommendations to follow. The impression and plan of care has been dictated as directed. : I performed a history and examination of this patient, discussed the same with the dictator. I agree with the dictator's note ,documented as a scribe. Any additional findings or plans will be noted.
[2017-06-22 17:13] LABS: Glucose,Whole Blood 66 mg/dL (75-99)
[2017-06-22 17:26] LABS: Glucose,Whole Blood 71 mg/dL (75-99)
[2017-06-22] MEDS: ATORVASTATIN 80 MG TAB PO SCH (21:01)
--- NOTE | 2017-06-22 21:07 | P.CONS ---
History of Present Illness - Reason for Consult Consult date: 06/22/17 - History of Present Illness This is 87 years old female, with a chronic history of low back pain, and she was treated as an outpatient with fentanyl patch 50 g every 72 hours, one week ago she started complaining of severe neck pain, started without any initiating event, pain mainly in the cervical area and is not translated to the upper extremity, radiated mainly to the right shoulder blade area, patient is not able to move her neck because of the intensity of the pain, the patient had a history of end stage renal disease and she had an infected dialysis catheter, and found and that she had also enterococcus bacteremia, patient currently on fentanyl patch 50 g every 72 hours and Dilaudid 2-4 mg tablet when necessary, and she was on Flexeril 5 mg daily at bedtime increased today to 3 times a day Past Medical History Past Medical History: Atrial Fibrillation, Heart Failure, CVA/TIA, Diabetes Mellitus, GERD/Reflux, Hypertension, Renal Disease Additional Past Medical History / Comment(s): dialysis, leaky mitral valve, CHF History of Any Multi-Drug Resistant Organisms: None Reported Past Surgical History: Coronary Bypass/CABG, Heart Catheterization With Stent, Pacemaker Additional Past Surgical History / Comment(s): hx GI Bleed, several colonoscopies Past Anesthesia/Blood Transfusion Reactions: No Reported Reaction Date of Last Stent Placement:: n/a Type of Cardiac Device: Permanent Pacemaker Device Placement Date:: 1999 Past Psychological History: No Psychological Hx Reported Additional Psychological History / Comment(s): to her very supportive . 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 No travel history. Winter in [place]. No animals in the home. No tobacco or alcohol use Smoking Status: Former smoker Past Alcohol Use History: None Reported Past Drug Use History: None Reported - Past Family History Father Family Medical History: Coronary Artery Disease (CAD) Brother(s) Family Medical History: Coronary Artery Disease (CAD) Sister(s) Family Medical History: CVA/TIA Medications and Allergies Home Medications Medication Instructions Recorded Confirmed Type Amiodarone [Cordarone] 200 mg PO DAILY 12/03/16 06/15/17 History Atorvastatin [Lipitor] 80 mg PO HS 12/03/16 06/15/17 History Calcium Acetate [PhosLo] 667 mg PO TID@0800,1400,1800 12/03/16 06/15/17 History Folic Acid-Vit B Complex-Vit C 1 mg PO HS 12/03/16 06/15/17 History [Nephrocaps] Furosemide [Lasix] 80 mg PO BID@0800,1400 12/03/16 06/15/17 History INSULIN LISPRO (humaLOG) [humaLOG] See Protocol SQ BID 12/03/16 06/15/17 History Insulin Glargine [Lantus] 20 unit SQ QAM 12/03/16 06/15/17 History Isosorbide Mononitrate ER [Imdur] 15 mg PO QAM 12/03/16 06/15/17 History Metoprolol Succinate (ER) [Toprol 50 mg PO QAM 12/03/16 06/15/17 History XL] Omeprazole 40 mg PO BID@0800,1800 12/03/16 06/15/17 History Apixaban [Eliquis] 2.5 mg PO BID@0800,2200 06/15/17 06/15/17 History Levothyroxine Sodium [Synthroid] 50 mcg PO DAILY 06/15/17 06/15/17 History Losartan Potassium 50 mg PO DAILY 06/15/17 06/15/17 History ALPRAZolam [Xanax] 0.25 mg PO Q8H PRN #20 tab 06/22/17 Rx Calcium Acetate [PhosLo] 667 mg PO TID-W/MEALS cap 06/22/17 Rx Cyclobenzaprine [Flexeril] 5 mg PO TID tab 06/22/17 Rx Lidocaine 5% Patch [Lidoderm 5% 1 patch TOPICAL DAILY patch 06/22/17 Rx Patch] fentaNYL 50MCG/HR PATCH [Duragesic 1 patch TRANSDERM Q72H #3 patch 06/22/17 Rx 50MCG/HR] Allergies Allergy/AdvReac Type Severity Reaction Status Date / Time Iodinated Contrast- Oral and AdvReac Severe Compromised Verified 06/15/17 22:44 IV Dye Kidney [Iodinated Contrast Media - Function/Dialysis Oral and] Physical Exam Vitals: Vital Signs Temp Pulse Pulse Resp BP BP Pulse Ox 06/22/17 15:00 97.2 F L 70 16 120/57 100 06/22/17 07:00 97.2 F L 69 16 136/52 100 06/21/17 23:00 97.3 F L 70 20 110/47 100 Intake and Output 06/22/17 06/22/17 06/22/17 06:59 14:59 22:59 Intake Total 100 Balance 100 Intake: Oral 100 Other: Voiding Method Toilet Toilet # Voids 0 1 # Bowel Movements 0 Weight 68 kg Social history : former smoker , NO ETOH , NO Illegal drugs use . Physical Examinations : 11- musculoskeltal: Cervical Spine = decrease the ability to flex and extend of the cervical spine, any cervical spine movement associated with severe pain motor stregnth in the deltoid and biceps, normal right side , normal Left side motor stregnth biceps and the wrist extensors normal right side ,normal left side . motor stregnth in the triceps muscle . normal Right side , normal Left side deep tendon reflexes normal at the biceps , normal at Brachioradialis , normal at triceps. positive cervical facet loading test . Multiple trigger points in the right- sided cervical paravertebral muscles Generalized swelling in the left upper extremity Results CBC & Chem 7: 06/22/17 07:05 06/22/17 07:05 Labs: Abnormal Lab Results - Last 24 Hours (Table) 06/22/17 06/22/17 06/22/17 Range/Units 07:05 07:05 07:27 RBC 2.76 L (3.80-5.40) m/uL Hgb 9.6 L (11.4-16.0) gm/dL Hct 30.6 L (34.0-46.0) % MCV 110.8 H (80.0-100.0) fL RDW 15.8 H (11.5-15.5) % Plt Count 141 L (150-450) k/uL Sodium 136 L (137-145) mmol/L BUN 65 H (7-17) mg/dL Creatinine 5.70 H* (0.52-1.04) mg/dL Glucose 135 H (74-99) mg/dL POC Glucose (mg/dL) 267 H (75-99) mg/dL 06/22/17 06/22/17 06/22/17 Range/Units 11:53 17:08 17:24 RBC (3.80-5.40) m/uL Hgb (11.4-16.0) gm/dL Hct (34.0-46.0) % MCV (80.0-100.0) fL RDW (11.5-15.5) % Plt Count (150-450) k/uL Sodium (137-145) mmol/L BUN (7-17) mg/dL Creatinine (0.52-1.04) mg/dL Glucose (74-99) mg/dL POC Glucose (mg/dL) 106 H 66 L 71 L (75-99) mg/dL Microbiology - Last 24 Hours (Table) 06/22/17 07:05 Blood Culture - Final Blood 06/21/17 10:20 Blood Culture - Preliminary Blood No Growth after 24 hours 06/17/17 05:44 Blood Culture - Final Blood 06/17/17 11:10 Blood Culture - Final Blood Comments: Computed tomography scan of the cervical area showed multilevel cervical degenerative disc disease and cervical facet arthropathy Assessment and Plan Plan: Assessment and plan= acute neck pain secondary to myofascial pain syndrome and cervical area, cervical spondylosis with cervical facet arthropathy, cervical degenerative disc disease, Recommend continue fentanyl patch 50 g every 72 hours, continue Dilaudid 4 mg every 3 hours when necessary, Continue Flexeril 5 mg every 8 hours, she could benefit from Lidoderm patch 5% to be applied to the right-sided cervical area She could benefit from heating pads to be applied to the right-sided cervical area, Patient could benefit from physical therapy/ massage therapy with myofascial release to the right-sided cervical paravertebral muscles patient had enterococcal bacteremia for this reason will avoid interventional pain management Time with Patient: Less than 30
[2017-06-22 21:31] LABS: Glucose,Whole Blood 187 mg/dL (75-99)
--- NOTE | 2017-06-22 23:28 | P.PN ---
Subjective Progress Note Date: 06/22/17 Principal diagnosis: Very pleasant 87-year-old female who has multiple medical troubles that includes end-stage renal disease on hemodialysis via a PermCath on the right anterior chest wall. The patient's is pleasant and cooberates her story, but the patient is an excellent historian. The patient relates that over a year ago she's having some difficulty with her fistula in her left arm and she developed a significant cellulitis. At that time a PermCath was applied to the right anterior chest wall from her vascular surgeon who is out of town. She's been maintained on hemodialysis via the PermCath although the dialysis center and her tree killer have consistently requested for her to only utilize the fistula but the patient refused. She was concerned about the fistula and the discomfort that it caused her. The patient however became ill she developed profound weakness generalized malaise fever. She is on evidence of atrial fibrillation with a rapid ventricular response and required hospitalization. With this treatment she is feeling somewhat better but was not evidence of Enterococcus faecalis bacteremia. There are now multiple positive blood cultures and infectious diseases consultation was requested. The case is discussed with the tree killer. The patient is feeling slightly better today. She relates that she is quite confused about what she is to do. 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 The patient is very intelligent and has a very supporting . Significant conversations occurred throughout the consult. She has noted she does feel somewhat better today. 06/18/2017 patient feels better today. She's had some visitors. She will have her catheter removed on Monday once her blood thinners have been out of her system for 2 days. 06/19/2017 patient continues to complain of pain into her neck which is quite severe. There is difficulty with the Dilaudid supplied with her morphine ALLERGY has not been able to have significant amounts of pain control today. She is very angry and takes it out on her nurse that she was not receiving pain control. She is reeducated on the difficulty with medication supply and she simply relates the nurse just wasn't doing her job. Her supportive of the nurses position. 06/20/2017 reveals the patient to be considerably improved today. Her anger and misery of yesterday have resolved. Dilaudid once again became available to the pharmacy and a dose of that is resulted in a significant improvement of her pain. Dialysis via her fistula occurred today and she was shocked how well it went. We'll have her dialysis catheter removed in the morning. 06/22/2017 reveals the patient to be improved today. She sitting upright in her bed. Her dialysis catheter has been removed and she is feeling better. Follow blood cultures are in process. She is instructed that she will receive at least 30 days of intravenous vancomycin via her dialysis for her infected catheter and bacteremia high-grade for so many days. Objective - Vital Signs Vital signs: Vital Signs Temp 97.2 F L 06/22/17 15:00 Pulse 70 06/22/17 15:00 Resp 16 06/22/17 15:00 BP 120/57 06/22/17 15:00 Pulse Ox 100 06/22/17 15:00 Intake & Output 06/22/17 06/22/17 06/23/17 06:59 18:59 06:59 Intake Total 300 Balance 300 Weight 68 kg 68 kg Intake: Oral 300 Other: Voiding Method Toilet Toilet Toilet # Voids 0 1 # Bowel Movements 0 - Exam Patient not in distress is much more comfortable today HEENT: Anicteric conjunctiva are pink and moist nasal mucosa grossly intact without significant lesions, there is no thrush. Neck: The neck is supple without significant lymphadenopathy or thyromegaly. PermCath removed. Lungs: Good bilateral air entry without significant crackles or wheezing. There is no significant bronchial sounds. There is no egophony or dullness. Heart: Irregularly irregular without audible S1 and S2 no S3 soft S4 There is no significant murmur click or rub, PMI was nondisplaced. Abdomen: Positive bowel sounds soft and nontender without palpable masses or organomegaly. There was no guarding or rebound. Extremities: The upper extremities have excellent pulses they are symmetric, no significant petechiae or telangiectasia. This shows a left arm has an easily palpated thrill and is nontender. No splinter hemorrhages were noted. The lower extremities have evidence of minimal edema. No significant lesions or ulcers in the lower extremities Neuro: Awake alert oriented to person place and time. There are no acute new gross focal sensory motor deficits. - Labs CBC & Chem 7: 06/22/17 07:05 06/22/17 07:05 Labs: Abnormal Lab Results - Last 24 Hours (Table) 06/22/17 06/22/17 06/22/17 Range/Units 07:05 07:05 07:27 RBC 2.76 L (3.80-5.40) m/uL Hgb 9.6 L (11.4-16.0) gm/dL Hct 30.6 L (34.0-46.0) % MCV 110.8 H (80.0-100.0) fL RDW 15.8 H (11.5-15.5) % Plt Count 141 L (150-450) k/uL Sodium 136 L (137-145) mmol/L BUN 65 H (7-17) mg/dL Creatinine 5.70 H* (0.52-1.04) mg/dL Glucose 135 H (74-99) mg/dL POC Glucose (mg/dL) 267 H (75-99) mg/dL 06/22/17 06/22/17 06/22/17 Range/Units 11:53 17:08 17:24 RBC (3.80-5.40) m/uL Hgb (11.4-16.0) gm/dL Hct (34.0-46.0) % MCV (80.0-100.0) fL RDW (11.5-15.5) % Plt Count (150-450) k/uL Sodium (137-145) mmol/L BUN (7-17) mg/dL Creatinine (0.52-1.04) mg/dL Glucose (74-99) mg/dL POC Glucose (mg/dL) 106 H 66 L 71 L (75-99) mg/dL 06/22/17 Range/Units 21:27 RBC (3.80-5.40) m/uL Hgb (11.4-16.0) gm/dL Hct (34.0-46.0) % MCV (80.0-100.0) fL RDW (11.5-15.5) % Plt Count (150-450) k/uL Sodium (137-145) mmol/L BUN (7-17) mg/dL Creatinine (0.52-1.04) mg/dL Glucose (74-99) mg/dL POC Glucose (mg/dL) 187 H (75-99) mg/dL Microbiology - Last 24 Hours (Table) 06/22/17 07:05 Blood Culture - Final Blood 06/21/17 10:20 Blood Culture - Preliminary Blood No Growth after 24 hours 06/17/17 05:44 Blood Culture - Final Blood 06/17/17 11:10 Blood Culture - Final Blood Laboratory Results WBC 4.9 k/uL (3.8-10.6) 06/22/17 07:05 RBC 2.76 m/uL (3.80-5.40) L 06/22/17 07:05 Hgb 9.6 gm/dL (11.4-16.0) L 06/22/17 07:05 Hct 30.6 % (34.0-46.0) L 06/22/17 07:05 MCV 110.8 fL (80.0-100.0) H 06/22/17 07:05 MCH 34.7 pg (25.0-35.0) 06/22/17 07:05 MCHC 31.3 g/dL (31.0-37.0) 06/22/17 07:05 RDW 15.8 % (11.5-15.5) H 06/22/17 07:05 Plt Count 141 k/uL (150-450) L 06/22/17 07:05 Neutrophils % 67 % 06/22/17 07:05 Neutrophils % (Manual) 69 % 06/19/17 04:26 Lymphocytes % 20 % 06/22/17 07:05 Lymphocytes % (Manual) 18 % 06/19/17 04:26 Monocytes % 7 % 06/22/17 07:05 Monocytes % (Manual) 11 % 06/19/17 04:26 Eosinophils % 3 % 06/22/17 07:05 Eosinophils % (Manual) 2 % 06/19/17 04:26 Basophils % 0 % 06/22/17 07:05 Basophils % (Manual) 2 % 06/18/17 05:19 Neutrophils # 3.3 k/uL (1.3-7.7) 06/22/17 07:05 Neutrophils # (Manual) 4.07 k/uL (1.3-7.7) 06/19/17 04:26 Lymphocytes # 1.0 k/uL (1.0-4.8) 06/22/17 07:05 Lymphocytes # (Manual) 1.06 k/uL (1.0-4.8) 06/19/17 04:26 Monocytes # 0.3 k/uL (0-1.0) 06/22/17 07:05 Monocytes # (Manual) 0.65 k/uL (0-1.0) 06/19/17 04:26 Eosinophils # 0.2 k/uL (0-0.7) 06/22/17 07:05 Eosinophils # (Manual) 0.12 k/uL (0-0.7) 06/19/17 04:26 Basophils # 0.0 k/uL (0-0.2) 06/22/17 07:05 Basophils # (Manual) 0.08 k/uL (0-0.2) 06/18/17 05:19 Nucleated RBCs 0 /100 WBC (0-0) 06/19/17 04:26 Manual Slide Review Performed 06/19/17 04:26 Polychromasia Present 06/15/17 22:50 Hypochromasia Slight 06/22/17 07:05 Anisocytosis Slight 06/15/17 22:50 Macrocytosis Marked 06/22/17 07:05 PT 11.2 sec (9.0-12.0) 06/15/17 22:50 INR 1.2 (<1.2) H 06/15/17 22:50 APTT 23.3 sec (22.0-30.0) 06/15/17 22:50 Sodium 136 mmol/L (137-145) L 06/22/17 07:05 Potassium 4.7 mmol/L (3.5-5.1) 06/22/17 07:05 Chloride 100 mmol/L (98-107) 06/22/17 07:05 Carbon Dioxide 26 mmol/L (22-30) 06/22/17 07:05 Anion Gap 10 mmol/L 06/22/17 07:05 BUN 65 mg/dL (7-17) H 06/22/17 07:05 Creatinine 5.70 mg/dL (0.52-1.04) H* 06/22/17 07:05 Est GFR (MDRD) Af Amer 9 (>60 ml/min/1.73 sqM) 06/22/17 07:05 Est GFR (MDRD) Non-Af 7 (>60 ml/min/1.73 sqM) 06/22/17 07:05 Glucose 135 mg/dL (74-99) H 06/22/17 07:05 POC Glucose (mg/dL) 187 mg/dL (75-99) H 06/22/17 21:27 POC Glu Scratch Brusher ID Helen Shay 06/22/17 21:27 Calcium 8.4 mg/dL (8.4-10.2) 06/22/17 07:05 Phosphorus 3.4 mg/dL (2.5-4.5) 06/15/17 22:50 Magnesium 2.0 mg/dL (1.6-2.3) 06/15/17 22:50 Iron 25 ug/dL (50-170) L 06/16/17 10:36 TIBC 198 ug/dL (228-460) L 06/16/17 10:36 Iron Saturation 12.63 (12.00-45.00) 06/16/17 10:36 Ferritin 2677.2 ng/mL (10.0-291.0) H 06/16/17 10:36 Total Bilirubin 0.5 mg/dL (0.2-1.3) 06/15/17 22:50 AST 191 U/L (14-36) H 06/15/17 22:50 ALT 139 U/L (9-52) H 06/15/17 22:50 Alkaline Phosphatase 59 U/L (38-126) 06/15/17 22:50 Total Creatine Kinase 150 U/L (30-135) H 06/16/17 10:36 CK-MB (CK-2) 3.0 ng/mL (0.0-2.4) H* 06/16/17 10:36 CK-MB (CK-2) Rel Index 2.0 06/16/17 10:36 Troponin I 0.935 ng/mL (0.000-0.034) H* 06/16/17 10:36 Total Protein 5.9 g/dL (6.3-8.2) L 06/15/17 22:50 Albumin 3.6 g/dL (3.5-5.0) 06/15/17 22:50 Triglycerides 103 mg/dL (<150) 06/17/17 05:44 Cholesterol 119 mg/dL (<200) 06/17/17 05:44 LDL Cholesterol, Calc 52 mg/dL (0-99) 06/17/17 05:44 HDL Cholesterol 46 mg/dL (40-60) 06/17/17 05:44 Urine Color Yellow 06/15/17 07:34 Urine Appearance Cloudy (Clear) H 06/15/17 07:34 Urine pH 5.0 (5.0-8.0) 06/15/17 07:34 Ur Specific [place] 1.021 (1.001-1.035) 06/15/17 07:34 Urine Protein Trace (Negative) H 06/15/17 07:34 Urine Glucose (UA) Negative (Negative) 06/15/17 07:34 Urine Ketones Negative (Negative) 06/15/17 07:34 Urine Blood Trace (Negative) H 06/15/17 07:34 Urine Nitrite Negative (Negative) 06/15/17 07:34 Urine Bilirubin 1+ (Negative) H 06/15/17 07:34 Urine Urobilinogen 2.0 mg/dL (<2.0) 06/15/17 07:34 Ur Leukocyte Esterase Large (Negative) H 06/15/17 07:34 Urine RBC 10 /hpf (0-5) H 06/15/17 07:34 Urine WBC 52 /hpf (0-5) H 06/15/17 07:34 Urine WBC Clumps Occasional /hpf (None) H 06/15/17 07:34 Ur Squamous Epith Cells 20 /hpf (0-4) H 06/15/17 07:34 Urine Bacteria Occasional /hpf (None) H 06/15/17 07:34 Urine Mucus Rare /hpf (None) H 06/15/17 07:34 Random Vancomycin 25.5 ug/mL 06/22/17 07:05 Microbiology 06/22/17 07:05 Blood Blood Culture - Final 06/21/17 10:20 Blood Blood Culture - Preliminary No Growth after 24 hours 06/17/17 05:44 Blood Blood Culture - Final 06/17/17 11:10 Blood Blood Culture - Final 06/17/17 11:10 Blood Blood Culture Gram Stain - Final 06/17/17 11:10 Blood Blood Culture - Final Enterococcus faecalis 06/17/17 05:44 Blood Blood Culture Gram Stain - Final 06/17/17 05:44 Blood Blood Culture - Final Enterococcus faecalis 06/15/17 07:34 Urine,Voided Urine Culture - Final Klebsiella pneumoniae 06/16/17 14:06 Blood Blood Culture Gram Stain - Final 06/16/17 14:06 Blood Blood Culture - Final Enterococcus faecalis 06/15/17 22:50 Blood Blood Culture Gram Stain - Final 06/15/17 22:50 Blood Blood Culture - Final Enterococcus faecalis 06/16/17 14:06 Blood Blood Culture - Final 06/15/17 22:50 Blood Blood Culture - Final Assessment and Plan (1) End-stage renal disease on hemodialysis Current Visit: Yes Status: Acute Code(s): N18.6 - END STAGE RENAL DISEASE; Z99.2 - DEPENDENCE ON RENAL DIALYSIS SNOMED Code(s): 210924009 (2) Weakness Current Visit: Yes Status: Acute Code(s): R53.1 - WEAKNESS SNOMED Code(s) : 81034381 (3) Atrial fibrillation with rapid ventricular response Current Visit: Yes Status: Acute Code(s): I48.91 - UNSPECIFIED ATRIAL FIBRILLATION SNOMED Code(s): 618105099134793 (4) Enterococcal bacteremia Narrative/Plan: 87-year-old female has multiple medical troubles that include coronary disease diabetes mellitus type 2 and has end-stage renal disease on hemodialysis. Physical fistula to her left arm relates that over a year ago developed difficulty with the cellulitis to her arm and a PermCath was applied. She's insisted on utilization of a PermCath since that point in time and that it is not tender like her arm is and has had no troubles. However as she has been instructed from the dialysis center PermCath access is difficult and is often fraught with infection. She now is evidence of enterococcus bacteremia strictly related to infection from her PermCath. This is discussed with the tree killer and the vascular surgeon. The patient will need the PermCath to be removed. She is very worried about this process in that last time she had a catheter removed who was very painful and she thought she was going to when it was removed. This is related to the vascular surgeon that she will need some type of sedation and local pain control to allow this to be removed. Because of all these issues the patient was asked contemplating whether she would have further hemodialysis. She over does relate up in the time that she became acutely ill she was active and interactive with her . Now that she's feeling better she seems to be reinvigorated about the process of continuing dialysis. Given her excellent mental status and her strong family support continue dialysis would be the most reasonable approach at this point in time. Certainly if she has any significant decline of her status then she may contemplate discontinuing dialysis at that time. As noted will have the current dialysis catheter removed. She will then continue antibiotic therapy at dialysis likely with vancomycin given the current data. June 18 2017 the patient is feeling better today. Is denying steady new difficulties except some pain in her neck that is improved with some muscle relaxant and pain medication Elquis is on hold her dialysis catheter removed on Monday. Vancomycin will continue and will need that for several weeks at dialysis after the catheter is removed. Surgeon is aware of the patient's great concerns by catheter removal regarding pain and discomfort. 06/19/2017 patient miserable will add lidoderm patch and hopefully will be able to obtain Dilaudid to help pain. Surgery tomorrow for catheter removal which will help resolve her sepsis. 06/20/2017 patient is considerably better today. Now that I wanted his become available. Dilaudid major improvement of her misery. As noted she is comfortable and pain-free this evening. She tolerated her hemodialysis via her fistula with no difficulties and she was quite shocked and pleased how well it went. We'll have the dialysis catheter removed in the morning. Once this is removed should then have the clearance of her enterococcus bacteremia is related to this catheter. We'll be planning a many week course of intravenous vancomycin after her dialysis at the dialysis center. 06/22/2017 H and is further improved today. She sitting upright not complaining of such severe pain. With the PermCath removal she is feeling somewhat better. We now have the first blood cultures coming back negative for the first time since her admission. We'll continue the intravenous vancomycin per her hemodialysis schedule for at least 30 days. This is needed because of her high-grade bacteremia related to her catheter. Fortunate she is much more comfortable Current Visit: Yes Status: Acute Code(s): R78.81 - BACTEREMIA; B95.2 - ENTEROCOCCUS THE CAUSE OF DISEASES CLASSIFIED ELSEWHERE SNOMED Code(s): 808066592750
[2017-06-23] MEDS: HYDROmorphone 4 MG TABLET PO PRN ×6 (04:15→18:35)
[2017-06-23 07:40] LABS: Glucose,Whole Blood 135 mg/dL (75-99)
[2017-06-23 07:45] VITALS: RESP 16
[2017-06-23] MEDS: LIDOCAINE 5% PATCH TOPICAL SCH ×3 (07:56→08:06)
[2017-06-23] MEDS: CYCLOBENZAPRINE 5 MG TAB PO SCH ×2 (07:56→15:21)
[2017-06-23] MEDS: ISOSORBIDE MONONITRATE ER 15 MG TAB PO SCH (07:56)
[2017-06-23] MEDS: CALCIUM ACETATE 667 MG CAP PO SCH ×3 (07:56→17:46)
[2017-06-23] MEDS: AMIODARONE 200 MG TAB PO SCH (07:56)
[2017-06-23] MEDS: ASPIRIN 325 MG TAB PO SCH (07:56)
[2017-06-23] MEDS: METOPROLOL SUCCINATE (ER) 50 MG TAB.ER.24H PO SCH (07:57)
[2017-06-23] MEDS: LOSARTAN 50 MG TAB PO SCH (07:57)
[2017-06-23] MEDS: INSULIN DETEMIR 100 UNIT/ML 10 ML VIAL SQ SCH (08:05)
[2017-06-23] MEDS: INSULIN ASPART 100 UNIT/ML 1 ML 10 ML VIAL SQ SCH ×3 (08:05→17:46)
[2017-06-23 09:01] LABS: Calcium 8.6 mg/dL (8.4-10.2); Potassium 4.6 mmol/L (3.5-5.1)
[2017-06-23 09:16] LABS: Basophils % (A) 0 %; Eosinophils # (A) 0.1 k/uL (0-0.7); Eosinophils % (A) 1 %; HCT 31.3 % (34.0-46.0); HGB 10.2 gm/dL (11.4-16.0); Hypochromasia Slight; Lymphocytes # (A) 0.8 k/uL (1.0-4.8); Lymphocytes % (A) 13 %; MCH 34.6 pg (25.0-35.0); MCHC 32.4 g/dL (31.0-37.0); MCV 106.8 fL (80.0-100.0); Macrocytosis Moderate; Mean Platelet Volume 8.9; Monocytes # (A) 0.4 k/uL (0-1.0); Monocytes % (A) 6 %; Neutrophils # (A) 4.5 k/uL (1.3-7.7); Neutrophils % (A) 78 %; Platelet Count 144 k/uL (150-450); RBC 2.93 m/uL (3.80-5.40); RDW 15.5 % (11.5-15.5); WBC 5.8 k/uL (3.8-10.6)
[2017-06-23 09:29] LABS: Vancomycin,Random 22.4 ug/mL
--- NOTE | 2017-06-23 09:55 | P.PN ---
Subjective Patient is seen in follow-up for end-stage renal disease. She is maintained on hemodialysis on a Monday schedule via a permacath. Patient does have a left upper extremity AV fistula which she had been refusing to use as she had cellulitis in the past and didn't want to be poked regularly. Patient presented with hypotension which is now resolved. She continues to have pain in her neck but is improved. Her blood cultures were positive for group D enterococcus - source was the permacath which was discontinued. The AV fistula is now being used for dialysis. However her blood cultures now are positive for gram-negative bacilli. Denies chest pain or shortness of breath. Denies any abdominal pain. Vital signs are stable. General: The patient appeared well nourished and normally developed. HEENT: Head exam is unremarkable. Neck is without jugular venous distension. LUNGS: Lungs are clear to auscultation and percussion. Breath sounds decreased. HEART: Rate and Rhythm are regular. First and second heart sounds normal. No murmurs, rubs or gallops. ABDOMEN: Abdominal exam reveals normal bowel sounds. Non-tender and non- distended. No evidence of peritonitis. EXTREMITITES: No clubbing, cyanosis, or edema. Objective - Vital Signs Vital signs: Vital Signs Temp 98.1 F 06/23/17 07:15 Pulse 71 06/23/17 07:15 Resp 16 06/23/17 07:15 BP 127/52 06/23/17 07:15 Pulse Ox 99 06/23/17 07:15 Intake & Output 06/22/17 06/23/17 06/23/17 18:59 06:59 18:59 Intake Total 200 240 Balance 200 240 Weight 73.5 kg Intake: Oral 200 240 Other: Voiding Method Toilet Toilet Toilet # Voids 1 0 # Bowel Movements 0 - Labs CBC & Chem 7: 06/23/17 07:45 06/23/17 07:45 Labs: Abnormal Lab Results - Last 24 Hours (Table) 06/22/17 06/22/17 06/22/17 Range/Units 07:05 11:53 17:08 RBC 2.76 L (3.80-5.40) m/uL Hgb 9.6 L (11.4-16.0) gm/dL Hct 30.6 L (34.0-46.0) % MCV 110.8 H (80.0-100.0) fL RDW 15.8 H (11.5-15.5) % Plt Count 141 L (150-450) k/uL Lymphocytes # (1.0-4.8) k/uL BUN (7-17) mg/dL Creatinine (0.52-1.04) mg/dL Glucose (74-99) mg/dL POC Glucose (mg/dL) 106 H 66 L (75-99) mg/dL 06/22/17 06/22/17 06/23/17 Range/Units 17:24 21:27 07:19 RBC (3.80-5.40) m/uL Hgb (11.4-16.0) gm/dL Hct (34.0-46.0) % MCV (80.0-100.0) fL RDW (11.5-15.5) % Plt Count (150-450) k/uL Lymphocytes # (1.0-4.8) k/uL BUN (7-17) mg/dL Creatinine (0.52-1.04) mg/dL Glucose (74-99) mg/dL POC Glucose (mg/dL) 71 L 187 H 135 H (75-99) mg/dL 06/23/17 06/23/17 Range/Units 07:45 07:45 RBC 2.93 L (3.80-5.40) m/uL Hgb 10.2 L (11.4-16.0) gm/dL Hct 31.3 L (34.0-46.0) % MCV 106.8 H (80.0-100.0) fL RDW (11.5-15.5) % Plt Count 144 L (150-450) k/uL Lymphocytes # 0.8 L (1.0-4.8) k/uL BUN 40 H (7-17) mg/dL Creatinine 3.86 H (0.52-1.04) mg/dL Glucose 126 H (74-99) mg/dL POC Glucose (mg/dL) (75-99) mg/dL Microbiology - Last 24 Hours (Table) 06/22/17 07:05 Blood Culture Gram Stain - Preliminary Blood Blood Culture - Preliminary Gram Neg Bacilli 06/22/17 07:05 Blood Culture - Final Blood 06/21/17 10:20 Blood Culture - Preliminary Blood No Growth after 24 hours 06/17/17 05:44 Blood Culture - Final Blood 06/17/17 11:10 Blood Culture - Final Blood Assessment and Plan Plan: Assessment: #1. End-stage renal disease maintained on hemodialysis on a Monday schedule. Permacath was discontinued on 06/21/17. The AV fistula is used and is functioning well. #2. Generalized weakness related to hypotension. Improved. #3. Hypotension related to antihypertensives as well as ultrafiltration. Orthostatics negative. Also component of bacteremia. Blood pressure stable. #4. Chronic kidney disease mineral bone disease maintained on PhosLo. #5. Hypertension with chronic kidney disease. Currently controlled. #6. Insulin-dependent diabetes mellitus. #7. History of A. fib maintained on Eliquis. #8. Anemia of chronic kidney disease. Iron deficiency noted. #9. Group D enterococcus bacteremia with source being the permacath, which was removed on June 21. #10. Hyperkalemia secondary to chronic kidney disease. Improved with dialysis. #11. 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 Orthopedic surgery following. With persistent bacteremia, meningitis is also in the differential. This was discussed with the primary team as well as the nurse. #12. Gram-negative bacilli bacteremia. Possibly an abdominal source. Discussed with infectious disease. #13. Swollen left upper extremity. Worsened after dialysis yesterday. Plan: Continue to hold home antihypertensives for systolic blood pressure less than 120. Maintain Aranesp. I will hold off on IV iron due to bacteremia. Antibiotics per infectious disease recommendations. Monitor vancomycin levels - target to 15. Discontinued morphine and maintain Dilaudid 1 mg every 4 hours as needed for pain - pain is better controlled. Next HD Monday per her outpatient schedule. Check left upper extremity ultrasound. Reconsult vascular surgery to see if AV fistula can be used tomorrow for dialysis. Discussed with infectious disease. Consider CAT scan of the abdomen and pelvis and even an LP.
--- NOTE | 2017-06-23 11:38 | US ---
EXAMINATION TYPE: US venous doppler duplex UE LT DATE OF EXAM: 06/23/2017 COMPARISON: NONE CLINICAL HISTORY: rule out DVT. Left arm swelling, patient states she is currently taking blood thinn ers SIDE PERFORMED: Left Left Arm: Negative for DVT. Large amount of edematous tissue in left lower arm. IMPRESSION: 1. No suspicious changes to suggest left upper extremity deep venous thrombosis. 2. Soft tissue edema is present.
[2017-06-23 12:04] LABS: Glucose,Whole Blood 182 mg/dL (75-99)
--- NOTE | 2017-06-23 12:44 | PN ---
PROGRESS NOTE This is an 87-year-old, pleasant female, I was consulted for bacteremia for removal of the right IJ catheter. She has a left upper arm [place] graft placed by Dr. 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. She had dialysis through the graft. 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 The graft is patent. is present. I have discussed with the family. They want to go back to see Dr. Schulz at [facility] and patient will be dialyzed on Monday. Discussed with Dr. Salomon. Patient will be transferred to [facility] and care with Dr. Schulz. MINAL / JOE: [id number] /
[2017-06-23 13:54] VITALS: BMI 29.6
[2017-06-23 15:24] VITALS: BP 118/59; PULSE 68; TEMP 96.8
[2017-06-23] MEDS ORDERED: cefTRIAXone IN SWFI 1,000 MG/10 ML SYRINGE IVP SCH (15:45)
[2017-06-23 17:28] LABS: Glucose,Whole Blood 219 mg/dL (75-99)
--- NOTE | 2017-06-23 20:16 | DS ---
DISCHARGE SUMMARY FINAL DIAGNOSES: 1. Group B Enterococcus bacteremia and sepsis possibly from PermCath which is discontinued. 2. Left arm swelling after using left arm arteriovenous fistula. 3. Removal of the status sodium with a PermCath from the right side. 4. Atrial fibrillation with a rapid ventricular rate. 5. Weakness, medical debility secondary to hypotension. 6. Indeterminate troponins. Coronary artery syndrome ruled out. 7. History of CAD. 8. Anemia of chronic disease, iron deficiency. 9. History of neck pain, possibly degenerative joint disease. DISCHARGE DISPOSITION: The patient is transferred to [facility] per Dr. Trevino's recommendations. HISTORY OF PRESENT ILLNESS: This 87-year-old with a past history of multiple medical problems being followed by Dr. Cheek in the outpatient setting was admitted with multiple medical problems as mentioned earlier. Patient grew Enterococcus faecalis bacteremia. The patient did IV antibiotics. Dr. Milian saw the patient and the patient also had a PermCath removed from the right chest and the patient had AV fistula in the left upper limb. Dialysis , but there was noted to be swelling on the left side and there is a pacemaker on the left side, so Dr. Trevino suspecting partial obstruction and discussed the case at length with Dr. Llanos, who recommend the patient be transferred to [facility] for further evaluation and treatment. The patient will transferred in stable condition. EXAM: VITAL SIGNS: Stable. CARDIOVASCULAR: S1, S2 muffled. ABDOMEN: Soft. NERVOUS SYSTEM: No focal deficits. Left arm is slightly swelled up. TOTAL TIME TAKEN: 35 minutes. Please refer to the medication reconciliation sheet for further information. MMODL / IJN: [id number] / MTDD
--- NOTE | 2017-06-23 21:28 | P.PN ---
Subjective Progress Note Date: 06/23/17 Principal diagnosis: Very pleasant 87-year-old female who has multiple medical troubles that includes end-stage renal disease on hemodialysis via a PermCath on the right anterior chest wall. The patient's is pleasant and cooberates her story, but the patient is an excellent historian. The patient relates that over a year ago she's having some difficulty with her fistula in her left arm and she developed a significant cellulitis. At that time a PermCath was applied to the right anterior chest wall from her vascular surgeon who is out of town. She's been maintained on hemodialysis via the PermCath although the dialysis center and her soft work wrapper layer and examiner have consistently requested for her to only utilize the fistula but the patient refused. She was concerned about the fistula and the discomfort that it caused her. The patient however became ill she developed profound weakness generalized malaise fever. She is on evidence of atrial fibrillation with a rapid ventricular response and required hospitalization. With this treatment she is feeling somewhat better but was not evidence of Enterococcus faecalis bacteremia. There are now multiple positive blood cultures and infectious diseases consultation was requested. The case is discussed with the soft work wrapper layer and examiner. The patient is feeling slightly better today. She relates that she is quite confused about what she is to do. 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 The patient is very intelligent and has a very supporting . Significant conversations occurred throughout the consult. She has noted she does feel somewhat better today. 06/18/2017 patient feels better today. She's had some visitors. She will have her catheter removed on Monday once her blood thinners have been out of her system for 2 days. 06/19/2017 patient continues to complain of pain into her neck which is quite severe. There is difficulty with the Dilaudid supplied with her morphine ALLERGY has not been able to have significant amounts of pain control today. She is very angry and takes it out on her nurse that she was not receiving pain control. She is reeducated on the difficulty with medication supply and she simply relates the nurse just wasn't doing her job. Her supportive of the nurses position. 06/20/2017 reveals the patient to be considerably improved today. Her anger and misery of yesterday have resolved. Dilaudid once again became available to the pharmacy and a dose of that is resulted in a significant improvement of her pain. Dialysis via her fistula occurred today and she was shocked how well it went. We'll have her dialysis catheter removed in the morning. 06/22/2017 reveals the patient to be improved today. She sitting upright in her bed. Her dialysis catheter has been removed and she is feeling better. Follow blood cultures are in process. She is instructed that she will receive at least 30 days of intravenous vancomycin via her dialysis for her infected catheter and bacteremia high-grade for so many days. 06/23/2017 the patient has developed significant swelling to her left arm which is where the fistula is present. Duplexes been performed without evidence of deep venous thrombosis. However there is concerned to stenosis after evaluation by vascular surgery. There is plans to transfer her to [facility] for further evaluation by her vascular surgeon who placed the fistula. The patient otherwise is feeling better. Fevers are resolved. Objective - Vital Signs Vital signs: Vital Signs Temp 96.8 F L 06/23/17 15:00 Pulse 68 06/23/17 15:00 Resp 16 06/23/17 15:00 BP 118/59 06/23/17 15:00 Pulse Ox 100 06/23/17 15:00 Intake & Output 06/23/17 06/23/17 06/24/17 06:59 18:59 06:59 Intake Total 200 480 Balance 200 480 Weight 73.5 kg 73.5 kg Intake: Oral 200 480 Other: Voiding Method Toilet Toilet # Voids 0 1 - Exam Patient not in distress is comfortable today except for the discomfort is developed in her left arm. She is denying fevers or chills HEENT: Anicteric conjunctiva are pink and moist nasal mucosa grossly intact without significant lesions, there is no thrush. Neck: The neck is supple without significant lymphadenopathy or thyromegaly. PermCath removed. Lungs: Good bilateral air entry without significant crackles or wheezing. There is no significant bronchial sounds. There is no egophony or dullness. Heart: Irregularly irregular without audible S1 and S2 no S3 soft S4 There is no significant murmur click or rub, PMI was nondisplaced. Abdomen: Positive bowel sounds soft and nontender without palpable masses or organomegaly. There was no guarding or rebound. Extremities: This shows a left arm has an easily palpated thrill over the fistula with the arm is now very swollen degenerative ecchymosis. Right arm without acute changes No splinter hemorrhages were noted. The lower extremities have evidence of minimal edema. No significant lesions or ulcers in the lower extremities Neuro: Awake alert oriented to person place and time. There are no acute new gross focal sensory motor deficits. 4 is - Labs CBC & Chem 7: 06/23/17 07:45 06/23/17 07:45 Labs: Abnormal Lab Results - Last 24 Hours (Table) 06/22/17 06/23/17 06/23/17 Range/Units 21:27 07:19 07:45 RBC (3.80-5.40) m/uL Hgb (11.4-16.0) gm/dL Hct (34.0-46.0) % MCV (80.0-100.0) fL Plt Count (150-450) k/uL Lymphocytes # (1.0-4.8) k/uL BUN 40 H (7-17) mg/dL Creatinine 3.86 H (0.52-1.04) mg/dL Glucose 126 H (74-99) mg/dL POC Glucose (mg/dL) 187 H 135 H (75-99) mg/dL 06/23/17 06/23/17 06/23/17 Range/Units 07:45 11:50 17:23 RBC 2.93 L (3.80-5.40) m/uL Hgb 10.2 L (11.4-16.0) gm/dL Hct 31.3 L (34.0-46.0) % MCV 106.8 H (80.0-100.0) fL Plt Count 144 L (150-450) k/uL Lymphocytes # 0.8 L (1.0-4.8) k/uL BUN (7-17) mg/dL Creatinine (0.52-1.04) mg/dL Glucose (74-99) mg/dL POC Glucose (mg/dL) 182 H 219 H (75-99) mg/dL Microbiology - Last 24 Hours (Table) 06/21/17 10:20 Blood Culture - Preliminary Blood No Growth after 48 hours 06/22/17 07:18 Blood Culture - Preliminary Blood No Growth after 24 hours 06/22/17 07:05 Blood Culture Gram Stain - Preliminary Blood Blood Culture - Preliminary Gram Neg Bacilli 06/22/17 07:05 Blood Culture - Final Blood Laboratory Results WBC 5.8 k/uL (3.8-10.6) 06/23/17 07:45 RBC 2.93 m/uL (3.80-5.40) L 06/23/17 07:45 Hgb 10.2 gm/dL (11.4-16.0) L 06/23/17 07:45 Hct 31.3 % (34.0-46.0) L 06/23/17 07:45 MCV 106.8 fL (80.0-100.0) H 06/23/17 07:45 MCH 34.6 pg (25.0-35.0) 06/23/17 07:45 MCHC 32.4 g/dL (31.0-37.0) 06/23/17 07:45 RDW 15.5 % (11.5-15.5) 06/23/17 07:45 Plt Count 144 k/uL (150-450) L 06/23/17 07:45 Neutrophils % 78 % 06/23/17 07:45 Neutrophils % (Manual) 69 % 06/19/17 04:26 Lymphocytes % 13 % 06/23/17 07:45 Lymphocytes % (Manual) 18 % 06/19/17 04:26 Monocytes % 6 % 06/23/17 07:45 Monocytes % (Manual) 11 % 06/19/17 04:26 Eosinophils % 1 % 06/23/17 07:45 Eosinophils % (Manual) 2 % 06/19/17 04:26 Basophils % 0 % 06/23/17 07:45 Basophils % (Manual) 2 % 06/18/17 05:19 Neutrophils # 4.5 k/uL (1.3-7.7) 06/23/17 07:45 Neutrophils # (Manual) 4.07 k/uL (1.3-7.7) 06/19/17 04:26 Lymphocytes # 0.8 k/uL (1.0-4.8) L 06/23/17 07:45 Lymphocytes # (Manual) 1.06 k/uL (1.0-4.8) 06/19/17 04:26 Monocytes # 0.4 k/uL (0-1.0) 06/23/17 07:45 Monocytes # (Manual) 0.65 k/uL (0-1.0) 06/19/17 04:26 Eosinophils # 0.1 k/uL (0-0.7) 06/23/17 07:45 Eosinophils # (Manual) 0.12 k/uL (0-0.7) 06/19/17 04:26 Basophils # 0.0 k/uL (0-0.2) 06/23/17 07:45 Basophils # (Manual) 0.08 k/uL (0-0.2) 06/18/17 05:19 Nucleated RBCs 0 /100 WBC (0-0) 06/19/17 04:26 Manual Slide Review Performed 06/19/17 04:26 Polychromasia Present 06/15/17 22:50 Hypochromasia Slight 06/23/17 07:45 Anisocytosis Slight 06/15/17 22:50 Macrocytosis Moderate 06/23/17 07:45 PT 11.2 sec (9.0-12.0) 06/15/17 22:50 INR 1.2 (<1.2) H 06/15/17 22:50 APTT 23.3 sec (22.0-30.0) 06/15/17 22:50 Sodium 137 mmol/L (137-145) 06/23/17 07:45 Potassium 4.6 mmol/L (3.5-5.1) 06/23/17 07:45 Chloride 100 mmol/L (98-107) 06/23/17 07:45 Carbon Dioxide 26 mmol/L (22-30) 06/23/17 07:45 Anion Gap 11 mmol/L 06/23/17 07:45 BUN 40 mg/dL (7-17) H 06/23/17 07:45 Creatinine 3.86 mg/dL (0.52-1.04) H 06/23/17 07:45 Est GFR (MDRD) Af Amer 13 (>60 ml/min/1.73 sqM) 06/23/17 07:45 Est GFR (MDRD) Non-Af 11 (>60 ml/min/1.73 sqM) 06/23/17 07:45 Glucose 126 mg/dL (74-99) H 06/23/17 07:45 POC Glucose (mg/dL) 219 mg/dL (75-99) H 06/23/17 17:23 POC Glu Pitch Filler ID Baylee Santiago 06/23/17 17:23 Calcium 8.6 mg/dL (8.4-10.2) 06/23/17 07:45 Phosphorus 3.4 mg/dL (2.5-4.5) 06/15/17 22:50 Magnesium 2.0 mg/dL (1.6-2.3) 06/15/17 22:50 Iron 25 ug/dL (50-170) L 06/16/17 10:36 TIBC 198 ug/dL (228-460) L 06/16/17 10:36 Iron Saturation 12.63 (12.00-45.00) 06/16/17 10:36 Ferritin 2677.2 ng/mL (10.0-291.0) H 06/16/17 10:36 Total Bilirubin 0.5 mg/dL (0.2-1.3) 06/15/17 22:50 AST 191 U/L (14-36) H 06/15/17 22:50 ALT 139 U/L (9-52) H 06/15/17 22:50 Alkaline Phosphatase 59 U/L (38-126) 06/15/17 22:50 Total Creatine Kinase 150 U/L (30-135) H 06/16/17 10:36 CK-MB (CK-2) 3.0 ng/mL (0.0-2.4) H* 06/16/17 10:36 CK-MB (CK-2) Rel Index 2.0 06/16/17 10:36 Troponin I 0.935 ng/mL (0.000-0.034) H* 06/16/17 10:36 Total Protein 5.9 g/dL (6.3-8.2) L 06/15/17 22:50 Albumin 3.6 g/dL (3.5-5.0) 06/15/17 22:50 Triglycerides 103 mg/dL (<150) 06/17/17 05:44 Cholesterol 119 mg/dL (<200) 06/17/17 05:44 LDL Cholesterol, Calc 52 mg/dL (0-99) 06/17/17 05:44 HDL Cholesterol 46 mg/dL (40-60) 06/17/17 05:44 Urine Color Yellow 06/15/17 07:34 Urine Appearance Cloudy (Clear) H 06/15/17 07:34 Urine pH 5.0 (5.0-8.0) 06/15/17 07:34 Ur Specific [place] 1.021 (1.001-1.035) 06/15/17 07:34 Urine Protein Trace (Negative) H 06/15/17 07:34 Urine Glucose (UA) Negative (Negative) 06/15/17 07:34 Urine Ketones Negative (Negative) 06/15/17 07:34 Urine Blood Trace (Negative) H 06/15/17 07:34 Urine Nitrite Negative (Negative) 06/15/17 07:34 Urine Bilirubin 1+ (Negative) H 06/15/17 07:34 Urine Urobilinogen 2.0 mg/dL (<2.0) 06/15/17 07:34 Ur Leukocyte Esterase Large (Negative) H 06/15/17 07:34 Urine RBC 10 /hpf (0-5) H 06/15/17 07:34 Urine WBC 52 /hpf (0-5) H 06/15/17 07:34 Urine WBC Clumps Occasional /hpf (None) H 06/15/17 07:34 Ur Squamous Epith Cells 20 /hpf (0-4) H 06/15/17 07:34 Urine Bacteria Occasional /hpf (None) H 06/15/17 07:34 Urine Mucus Rare /hpf (None) H 06/15/17 07:34 Random Vancomycin 22.4 ug/mL 06/23/17 07:45 Microbiology 06/21/17 10:20 Blood Blood Culture - Preliminary No Growth after 48 hours 06/22/17 07:18 Blood Blood Culture - Preliminary No Growth after 24 hours 06/22/17 07:05 Blood Blood Culture Gram Stain - Preliminary 06/22/17 07:05 Blood Blood Culture - Preliminary Gram Neg Bacilli 06/22/17 07:05 Blood Blood Culture - Final 06/17/17 05:44 Blood Blood Culture - Final 06/17/17 11:10 Blood Blood Culture - Final 06/17/17 11:10 Blood Blood Culture Gram Stain - Final 06/17/17 11:10 Blood Blood Culture - Final Enterococcus faecalis 06/17/17 05:44 Blood Blood Culture Gram Stain - Final 06/17/17 05:44 Blood Blood Culture - Final Enterococcus faecalis 06/15/17 07:34 Urine,Voided Urine Culture - Final Klebsiella pneumoniae 06/16/17 14:06 Blood Blood Culture Gram Stain - Final 06/16/17 14:06 Blood Blood Culture - Final Enterococcus faecalis 06/15/17 22:50 Blood Blood Culture Gram Stain - Final 06/15/17 22:50 Blood Blood Culture - Final Enterococcus faecalis 06/16/17 14:06 Blood Blood Culture - Final 06/15/17 22:50 Blood Blood Culture - Final Assessment and Plan (1) End-stage renal disease on hemodialysis Status: Acute Code(s): N18.6 - END STAGE RENAL DISEASE; Z99.2 - DEPENDENCE ON RENAL DIALYSIS SNOMED Code(s): 354965588 (2) Weakness Status: Acute Code(s): R53.1 - WEAKNESS SNOMED Code(s): 92004447 (3) Atrial fibrillation with rapid ventricular response Status: Acute Code(s): I48.91 - UNSPECIFIED ATRIAL FIBRILLATION SNOMED Code( s): 627320759514338 (4) Enterococcal bacteremia Narrative/Plan: 87-year-old female has multiple medical troubles that include coronary disease diabetes mellitus type 2 and has end-stage renal disease on hemodialysis. Physical fistula to her left arm relates that over a year ago developed difficulty with the cellulitis to her arm and a PermCath was applied. She's insisted on utilization of a PermCath since that point in time and that it is not tender like her arm is and has had no troubles. However as she has been instructed from the dialysis center PermCath access is difficult and is often fraught with infection. She now is evidence of enterococcus bacteremia strictly related to infection from her PermCath. This is discussed with the soft work wrapper layer and examiner and the vascular surgeon. The patient will need the PermCath to be removed. She is very worried about this process in that last time she had a catheter removed who was very painful and she thought she was going to when it was removed. This is related to the vascular surgeon that she will need some type of sedation and local pain control to allow this to be removed. Because of all these issues the patient was asked contemplating whether she would have further hemodialysis. She over does relate up in the time that she became acutely ill she was active and interactive with her . Now that she's feeling better she seems to be reinvigorated about the process of continuing dialysis. Given her excellent mental status and her strong family support continue dialysis would be the most reasonable approach at this point in time. Certainly if she has any significant decline of her status then she may contemplate discontinuing dialysis at that time. As noted will have the current dialysis catheter removed. She will then continue antibiotic therapy at dialysis likely with vancomycin given the current data. June 18 2017 the patient is feeling better today. Is denying steady new difficulties except some pain in her neck that is improved with some muscle relaxant and pain medication Ayanqusrinivasan is on hold her dialysis catheter removed on Monday. Vancomycin will continue and will need that for several weeks at dialysis after the catheter is removed. Surgeon is aware of the patient's great concerns by catheter removal regarding pain and discomfort. 06/19/2017 patient miserable will add lidoderm patch and hopefully will be able to obtain Dilaudid to help pain. Surgery tomorrow for catheter removal which will help resolve her sepsis. 06/20/2017 patient is considerably better today. Now that I wanted his become available. Dilaudid major improvement of her misery. As noted she is comfortable and pain-free this evening. She tolerated her hemodialysis via her fistula with no difficulties and she was quite shocked and pleased how well it went. We'll have the dialysis catheter removed in the morning. Once this is removed should then have the clearance of her enterococcus bacteremia is related to this catheter. We'll be planning a many week course of intravenous vancomycin after her dialysis at the dialysis center. 06/22/2017 H and is further improved today. She sitting upright not complaining of such severe pain. With the PermCath removal she is feeling somewhat better. We now have the first blood cultures coming back negative for the first time since her admission. We'll continue the intravenous vancomycin per her hemodialysis schedule for at least 30 days. This is needed because of her high-grade bacteremia related to her catheter. Fortunate she is much more comfortable 2017 patient is feeling somewhat better today except she now has developed increasing swelling and some discomfort to her left arm or her fistulas in place. She was seen by vascular surgery. There is concerns to stricture of the arterial component of the fistula. She'll be sent to her vascular surgeon at [facility]. Of note the patient's enterococcal bacteremia does seem to have cleared but now there is evidence of a gram-negative bacilli that appears to be klebsiella. For this Rocephin is added to the vancomycin. There is now patient is instructed that we could finish up her care locally after her discharge from the outside facility There is one negative blood culture from 04/2017 Status: Acute Code(s): R78.81 - BACTEREMIA; B95.2 - ENTEROCOCCUS THE CAUSE OF DISEASES CLASSIFIED ELSEWHERE SNOMED Code(s): 761227482621
[2017-06-25] MEDS ORDERED: VANCOMYCIN 1,250 MG in SODIUM CHLORIDE 0.9% 250 ML IVPB ONE (09:00)
== END 2017-06-23 19:23 | disposition short-term general hospital (02) | DRG 314 ==
LOC: EC 22:06 → 6SEL 06-16 01:15 → 4MS4W 06-19 19:22
PROVIDERS: ADMIT Hospitalist; ATTEND Hospitalist
PROC: 5A1D70Z Performance of Urinary Filtration, Intermittent, Less than 6 Hours Per Day (ICD-10-PCS; 2017-06-17)
PROC: 05PY33Z Removal of Infusion Device from Upper Vein, Percutaneous Approach (ICD-10-PCS; principal; 2017-06-21)
DX: T82.7XXA Infection and inflammatory reaction due to other cardiac and vascular devices, implants and grafts, initial encounter (principal); A41.81 Sepsis due to Enterococcus; N18.6 End stage renal disease; I13.2 Hypertensive heart and chronic kidney disease with heart failure and with stage 5 chronic kidney disease, or end stage renal disease; N17.9 Acute kidney failure, unspecified; E11.22 Type 2 diabetes mellitus with diabetic chronic kidney disease; E87.5 Hyperkalemia; I95.9 Hypotension, unspecified; I08.1 Rheumatic disorders of both mitral and tricuspid valves; I48.0 Paroxysmal atrial fibrillation; E83.9 Disorder of mineral metabolism, unspecified; I50.9 Heart failure, unspecified; D63.1 Anemia in chronic kidney disease; D50.9 Iron deficiency anemia, unspecified; E03.9 Hypothyroidism, unspecified; E78.5 Hyperlipidemia, unspecified; G89.29 Other chronic pain; I25.10 Atherosclerotic heart disease of native coronary artery without angina pectoris; K21.9 Gastro-esophageal reflux disease without esophagitis; M19.90 Unspecified osteoarthritis, unspecified site; M48.02 Spinal stenosis, cervical region; M50.30 Other cervical disc degeneration, unspecified cervical region; M54.5 Low back pain; R74.8 Abnormal levels of other serum enzymes; I65.23 Occlusion and stenosis of bilateral carotid arteries; Z79.01 Long term (current) use of anticoagulants; Z79.4 Long term (current) use of insulin; Z79.899 Other long term (current) drug therapy; Z86.73 Personal history of transient ischemic attack (TIA), and cerebral infarction without residual deficits; Z88.5 Allergy status to narcotic agent; Z91.041 Radiographic dye allergy status; Z87.891 Personal history of nicotine dependence; Z95.0 Presence of cardiac pacemaker; Z95.1 Presence of aortocoronary bypass graft; Z95.5 Presence of coronary angioplasty implant and graft; Z99.2 Dependence on renal dialysis; Z82.49 Family history of ischemic heart disease and other diseases of the circulatory system; Y83.8 Other surgical procedures as the cause of abnormal reaction of the patient, or of later complication, without mention of misadventure at the time of the procedure
CPT/HCPCS: 36415; 70490; 71046; 80048; 80053; 80061; 80202; 81001; 82550; 82553; 82728; 83540; 83550; 83735; 84100; 84132; 84484; 85025; 85610; 85730; 87040; 87077; 87086; 87186; 90935; 93005; 93306; 94760; 99285